=== PATIENT | female | born 1950 | race Caucasian/White ===

== ENCOUNTER → 2016-03-11 | Outpatient (REF) | payer BC ==
[~2016-03-11] MED LIST: BETI1SOL OP; BIMA01SOL; BRIN1OPH; DRIS50002 PO; ENAL20TA PO; HYDR25TAB PO; HYDROXYUREA PO; MAGN400C2 PO; METF500T PO; VITA200016 PO; ZYLO300T4 PO; [UNRECOGNIZED DRUG - CODE] PO
[2016-03-11 12:24] LABS: BASO % 0.4 % (0.0-1.0); EOS # 0.2 K/mm3 (0.0-0.50); EOS % 3.3 % (0.0-3.0); LARGE UNSTAINED CELL # 0.2 K/mm3 (0.0-0.4); LARGE UNSTAINED CELL % 2.9 % (0.0-4.0); LYMPH # 2.8 K/mm3 (1.5-4.5); LYMPH % 38.5 % (24.0-44.0); MEAN CORPUSCULAR HGB CONC 35.4 g/dl (32.0-36.5); MEAN CORPUSCULAR VOLUME 107.2 fl (80.0-96.0); MONO # 0.3 K/mm3 (0.0-0.8); MONO % 4.3 % (0.0-5.0); NEUTROPHILS # 3.7 K/mm3 (1.8-7.7); NEUTROPHILS % 50.6 % (36.0-66.0); PLATELET COUNT, AUTOMATED 451 k/mm3 (150-450); RED CELL DISTRIBUTION WIDTH 13.1 % (11.5-14.5); WHITE BLOOD COUNT 7.3 K/mm3 (4.0-10.0)
[2016-03-11 12:31] LABS: ALBUMIN 3.8 GM/DL (3.2-5.2); ALBUMIN/GLOBULIN RATIO 1.12 (1.00-1.93); ALKALINE PHOSPHATASE 82 U/L (45-117); ALT/SGPT 46 U/L (12-78); ANION GAP 8 MEQ/L (8-16); AST/SGOT 26 U/L (15-37); BILIRUBIN,TOTAL 0.4 MG/DL (0.2-1.0); BLOOD UREA NITROGEN 19 MG/DL (7-18); CALCIUM LEVEL 9.4 MG/DL (8.8-10.2); CARBON DIOXIDE LEVEL 31 MEQ/L (21-32); CHLORIDE LEVEL 101 MEQ/L (98-107); CREATININE FOR GFR 0.62 MG/DL (0.55-1.02); GLOMERULAR FILTRATION RATE > 60.0 (>45); GLUCOSE, FASTING 119 MG/DL (80-110); POTASSIUM SERUM 4.1 MEQ/L (3.5-5.1); SODIUM LEVEL 140 MEQ/L (136-145); TOTAL PROTEIN 7.2 GM/DL (6.4-8.2)
== END ==
LOC: M LABDRAW1 11:28
DX: D47.1 Chronic myeloproliferative disease (principal)

== ENCOUNTER → 2016-04-08 | Outpatient (REF) | payer BC ==
[2016-04-08 12:40] LABS: BASO % 0.4 % (0.0-1.0); EOS # 0.2 K/mm3 (0.0-0.50); EOS % 2.2 % (0.0-3.0); LARGE UNSTAINED CELL # 0.2 K/mm3 (0.0-0.4); LARGE UNSTAINED CELL % 2.8 % (0.0-4.0); LYMPH # 2.8 K/mm3 (1.5-4.5); MEAN CORPUSCULAR HEMOGLOBIN 37.1 pg (27.0-33.0); MEAN CORPUSCULAR HGB CONC 33.6 g/dl (32.0-36.5); MEAN CORPUSCULAR VOLUME 110.5 fl (80.0-96.0); MONO # 0.3 K/mm3 (0.0-0.8); MONO % 4.3 % (0.0-5.0); NEUTROPHILS # 4.2 K/mm3 (1.8-7.7); NEUTROPHILS % 54.2 % (36.0-66.0); PLATELET COUNT, AUTOMATED 390 k/mm3 (150-450); RED CELL DISTRIBUTION WIDTH 12.9 % (11.5-14.5); WHITE BLOOD COUNT 7.7 K/mm3 (4.0-10.0)
[2016-04-08 12:50] LABS: ALBUMIN 3.9 GM/DL (3.2-5.2); ALBUMIN/GLOBULIN RATIO 1.26 (1.00-1.93); ALKALINE PHOSPHATASE 92 U/L (45-117); ALT/SGPT 32 U/L (12-78); ANION GAP 7 MEQ/L (8-16); AST/SGOT 21 U/L (15-37); BILIRUBIN,TOTAL 0.5 MG/DL (0.2-1.0); BLOOD UREA NITROGEN 18 MG/DL (7-18); CALCIUM LEVEL 9.8 MG/DL (8.8-10.2); CARBON DIOXIDE LEVEL 30 MEQ/L (21-32); CHLORIDE LEVEL 103 MEQ/L (98-107); CREATININE FOR GFR 0.56 MG/DL (0.55-1.02); GLOMERULAR FILTRATION RATE > 60.0 (>45); GLUCOSE, FASTING 129 MG/DL (80-110); POTASSIUM SERUM 4.3 MEQ/L (3.5-5.1); SODIUM LEVEL 140 MEQ/L (136-145)
== END ==
LOC: M LABDRWAD 12:17
PROVIDERS: ATTEND Nurse Practitioner Family
DX: D47.1 Chronic myeloproliferative disease (principal)

== ENCOUNTER → 2016-05-05 | Outpatient (REF) | payer BC ==
[~2016-05-05] MED LIST changes: +ALLO100T PO; -BETI1SOL OP; +BETI1SOL OU; -BIMA01SOL; +BIMA01SOL OU; -BRIN1OPH; +BRIN1OPH OS; +VITA500C10 PO
[2016-05-05 10:40] LABS: BASO % 0.3 % (0.0-1.0); EOS # 0.1 K/mm3 (0.0-0.50); EOS % 1.5 % (0.0-3.0); LARGE UNSTAINED CELL # 0.2 K/mm3 (0.0-0.4); LARGE UNSTAINED CELL % 2.8 % (0.0-4.0); LYMPH # 2.4 K/mm3 (1.5-4.5); LYMPH % 33.2 % (24.0-44.0); MEAN CORPUSCULAR HEMOGLOBIN 36.2 pg (27.0-33.0); MEAN CORPUSCULAR HGB CONC 33.6 g/dl (32.0-36.5); MEAN CORPUSCULAR VOLUME 107.9 fl (80.0-96.0); MONO # 0.3 K/mm3 (0.0-0.8); MONO % 3.5 % (0.0-5.0); NEUTROPHILS # 4.1 K/mm3 (1.8-7.7); NEUTROPHILS % 58.5 % (36.0-66.0); PLATELET COUNT, AUTOMATED 353 k/mm3 (150-450); RED CELL DISTRIBUTION WIDTH 12.8 % (11.5-14.5); WHITE BLOOD COUNT 7.1 K/mm3 (4.0-10.0)
[2016-05-05 10:46] LABS: ALBUMIN 3.8 GM/DL (3.2-5.2); ALBUMIN/GLOBULIN RATIO 1.12 (1.00-1.93); ALKALINE PHOSPHATASE 98 U/L (45-117); ALT/SGPT 28 U/L (12-78); ANION GAP 10 MEQ/L (8-16); AST/SGOT 17 U/L (15-37); BILIRUBIN,TOTAL 0.4 MG/DL (0.2-1.0); BLOOD UREA NITROGEN 17 MG/DL (7-18); CALCIUM LEVEL 9.3 MG/DL (8.8-10.2); CARBON DIOXIDE LEVEL 30 MEQ/L (21-32); CHLORIDE LEVEL 102 MEQ/L (98-107); CREATININE FOR GFR 0.53 MG/DL (0.55-1.02); GLOMERULAR FILTRATION RATE > 60.0 (>45); GLUCOSE, FASTING 130 MG/DL (80-110); POTASSIUM SERUM 4.1 MEQ/L (3.5-5.1); SODIUM LEVEL 142 MEQ/L (136-145); TOTAL PROTEIN 7.2 GM/DL (6.4-8.2)
== END ==
LOC: M LAB 10:17 → M LAB REF 10:17
PROVIDERS: ATTEND Nurse Practitioner Family
DX: D47.1 Chronic myeloproliferative disease (principal)

== ENCOUNTER → 2016-05-05 | Outpatient (CLI) | payer BC ==
[2016-05-05 10:28] LABS: MEAN CORPUSCULAR HEMOGLOBIN 37.2 pg (27.0-33.0); MEAN CORPUSCULAR HGB CONC 34.6 g/dl (32.0-36.5); MEAN CORPUSCULAR VOLUME 107.3 fl (80.0-96.0); WHITE BLOOD COUNT 7.3 K/mm3 (4.0-10.0)
--- NOTE | 2016-05-05 10:29 | REP ---
Chest two views HISTORY: Preop Comparison: 06/01/2015 The lungs are clear. The heart is normal in size. The pulmonary vasculature is normal in appearance. The bony structure is intact. IMPRESSION: No acute disease. Signed by Johann Whitehead MD 05/05/2016 10:20 A
[2016-05-05 10:30] LABS: INR 0.97
[2016-05-05 10:45] LABS: ALBUMIN 3.8 GM/DL (3.2-5.2); ALBUMIN/GLOBULIN RATIO 1.12 (1.00-1.93); ALKALINE PHOSPHATASE 99 U/L (45-117); ALT/SGPT 27 U/L (12-78); ANION GAP 9 MEQ/L (8-16); AST/SGOT 17 U/L (15-37); BILIRUBIN,TOTAL 0.4 MG/DL (0.2-1.0); BLOOD UREA NITROGEN 18 MG/DL (7-18); CALCIUM LEVEL 9.3 MG/DL (8.8-10.2); CARBON DIOXIDE LEVEL 30 MEQ/L (21-32); CHLORIDE LEVEL 102 MEQ/L (98-107); CREATININE FOR GFR 0.54 MG/DL (0.55-1.02); GLOMERULAR FILTRATION RATE > 60.0 (>45); GLUCOSE, FASTING 130 MG/DL (80-110); POTASSIUM SERUM 4.1 MEQ/L (3.5-5.1); SODIUM LEVEL 141 MEQ/L (136-145); TOTAL PROTEIN 7.2 GM/DL (6.4-8.2)
--- NOTE | 2016-05-05 12:45 | ECGEPIP ---
Stationary ECG Study [facility] Test Date: 2016-05-05 Pat Name: BRET MICHELLE Department: Room: - Gender: F Acute Care Nurse: ITZ : 1950 Requested By: Cuate Adler Order Number: [id number] Reading MD: Gilma Gonzales Measurements Intervals [place] Rate: 66 P: 56 [place]: 151 QRS: 48 QRSD: 98 T: 102 QT: 394 QTc: 416 Interpretive Statements SINUS RHYTHM STTABN MORE APPARENT C/W 06/02/15 Electronically Signed On 05-05-2016 12:45:22 EST by Gilma Gonzales
== END ==
LOC: M ADMPAT 08:43
PROVIDERS: ATTEND Orthopaedic Surgery
DX: Z01.818 Encounter for other preprocedural examination (principal)

== ENCOUNTER 2016-05-18 05:43 | Inpatient (IN) | payer BC ==
[2016-05-05 10:03] VITALS: BP 140/78
--- NOTE | 2016-05-17 10:03 | CR ---
PREOPERATIVE EVALUATION AND CONSULTATION DATE OF CONSULTATION: 05/09/2016 REQUESTING CONSULTATION: Is Dr. Cuate Adler, orthopedics. CONSULTING PHYSICIAN: Dr. Francois Snowden of [facility]. PLANNED SURGERY: Is a left total knee replacement to be completed on 05/18/2016 at [facility]. CHIEF COMPLAINT: Preoperative evaluation. HISTORY OF PRESENT ILLNESS: A very pleasant 65-year-old patient who is well known to me presents today for a preoperative evaluation and consultation in the setting of multiple medical problems. The patient notes overall she is feeling well without any new symptoms or issues. She has no history of cardiac issues, significant chest pain, shortness of breath. She does have obstructive sleep apnea (ELENA) and has good compliance on continuous positive airway pressure (CPAP). She also has diabetes, which has been well controlled. Last hemoglobin A1c is 6.4. She does have a variant of polycythemia vera, but at this point has normal blood counts. She has had no issues with significant respiratory concerns or other medical issues of cardiac, pulmonary, or anesthesia issues. She does have a Ventolin metered-dose inhaler(MDI) and has wheeze with coughs in the past but has had no persistent asthma or other respiratory issues. Other medical issues, including osteoarthritis of the left knee, hyperlipidemia, vitamin D deficiency, hypertension, gout, glaucoma, peripheral neuropathy, and restless legs. Each of these appear to be stable on present medication. PAST MEDICAL HISTORY: 1. Type 2 diabetes, controlled. 2. Vitamin D deficiency. 3. Myelodysplastic syndrome seen at [facility] and diagnosed as polycythemia vera. 4. History of gout. 5. History of low back pain. 6. Hyperlipidemia. 7. Hypertension. 8. Glaucoma. Follows with Dr. Harris, ophthalmology in [place]. 9. History of peripheral neuropathy. 10. History of spinal stenosis. 11. ELENA - 100% compliance with CPAP PAST SURGICAL HISTORY: 1. Abdominal hysterectomy in 1984. 2. Bilateral salpingo-oophorectomy (BSO) in 2003. 3. Cholecystectomy with Dr. Jiang in 2005. 4. Left foot surgery with Dr. Forbes, including a plate and screw placement. 5. Orthoscopic evaluation by Dr. Adler of her left knee. 6. Right carpal tunnel release in 2003. ALLERGIES: ACTOS and NORVASC both cause lower extremity swelling. COZAAR caused increased liver function testing. THIMEROSAL caused itching of the eyes. ROPINIROLE caused diarrhea and disorientation. PRESENT MEDICATIONS: Include: - Zetia 10 mg by mouth daily - Vicodin one tablet every 6 hours as needed for pain - Combivent as well as Ventolin HFA as needed for wheezing with colds - vitamin D 2000 units daily - hydrochlorothiazide 25 mg - magnesium - vitamin D 2000 units daily - hydrochlorothiazide 25 mg daily - magnesium 400 mg daily - metformin ER 500 mg daily - Drisdol weekly - Vasotec 20 mg daily - Azopt 1% twice a day - aspirin 81 mg daily - Timolol one drop each eye twice a day - Lumigan 0.10% one drop in each eye at bedtime - hydroxyurea 500 mg tablets, two tablets daily - allopurinol 100 mg daily FAMILY HISTORY: Father of unknown causes. He had coronary disease with coronary artery bypass graft (CABG) in the past. Mother of natural causes at age 87. She had diabetes and osteoarthritis. SOCIAL HISTORY: The patient is to her , Francesco. They live in [place], and they have two adult children (Juwan and Valarie). 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 She has never smoked and does not use alcohol. REVIEW OF SYSTEMS: As per history of present illness (HPI). Otherwise, ten system review is completely negative. PHYSICAL EXAMINATION: VITAL SIGNS: Blood pressure 120/72, pulse of 80, height of 5 feet 5 inches, weight of 238 pounds. In general, in no acute distress. Nontoxic. Alert and oriented times three. She is smiling and interactive. HEENT: Notes pupils equal, round, and reactive to light and accommodation. Extraocular motions intact. No lesions of lid or conjunctivae. EARS, NOSE, AND THROAT (ENT): Oral cavity and oropharynx appear benign. NECK: Is supple. ABDOMEN: Soft, nontender, nondistended. EXTREMITIES: No clubbing, cyanosis, or edema. NEUROLOGICAL EXAMINATION: Is nonfocal. Equal movement of all limbs. PREOPERATIVE TESTING: Notes an electrocardiogram (EKG) with sinus rhythm. Urinalysis (UA) is negative. Urine culture shows no growth of single organism. CBC showed a hemoglobin of 13.6. MCV, however, significantly elevated. Platelets normal at 374, as is WBC at 7.3. ESR of 48. CMP is normal, as are platelet function testing. ASSESSMENT AND PLAN: 1. Preoperative evaluation and consultation. At this point in time, the patient appears to be optimized for surgical intervention. Again, the patient does have diabetes, ELENA as well as has a history of wheezing with colds. However, has not had any wheezing recently and has controlled diabetes with hemoglobin A1c last at 6.4. ELENA is well controlled on CPAP and she will bring it to the hospital. She is going to hold her metformin and Vasotec a day prior, as well as the day of surgery. She will hold her aspirin the week before and understands the need for close monitoring and anticoagulation for the planned procedure. 2. Left knee osteoarthritis. The patient looks forward to surgery and understands the plan for rehabilitation and improved function. 3. Hyperlipidemia. The patient is on Zetia due to statin intolerance and has generally done well and will continue present medication. 4. Myeloproliferative disease/polycythemia vera. Appears to be stable at this point in time, although increased MCV. Other lines are all in the normal range and will continue to monitor and followup at [facility]. 5. Type 2 diabetes, controlled on last check. Will continue to monitor and be sure to hold metformin prior to surgical intervention. 6. Vitamin D deficiency. Doing well on supplementation. Will continue. 7. Hypertension. Has been well controlled on present regimen. There have been medications that have caused lower extremity edema. However, she is doing well on her present regimen and will continue. 8. Gout. The patient does well with allopurinol and no recent episodes. 9. Glaucoma. Is following with her clinical cytogeneticist with good results on present drops. 10. Idiopathic neuropathy. Appears to be stable. Will monitor. 11. History of wheezing with colds. She will be given nebulizers if indeed there is any induction of wheezing. However, her lungs are completely clear today. 12. ELENA. Doing well on CPAP with 100% compliance. 13. Ongoing care. Will see her again as scheduled with laboratories. If she has new problems or issues sooner than her surgery, she is going to let me know. TOMY
[~2016-05-18] VITALS: Ht 165.1 cm; Wt 106.6 kg
[2016-05-18] VITALS (8 sets, daily range): BP systolic 134–163; BP diastolic 64–75; O2SAT 99
[2016-05-18] MEDS ORDERED: LR 1,000 ML IV SCH ×3 (06:00→10:30)
[2016-05-18] MEDS ORDERED: LIDOCAINE 2% INJ 100 MG/5 ML SDV (FOR ANES.) As Ordered ONE (06:24)
[2016-05-18] MEDS ORDERED: PROPOFOL 200 MG/20 ML VIAL As Ordered ONE ×2 (06:24→08:22)
[2016-05-18] MEDS ORDERED: dexameTHASONE 4 MG/ML 1ML VIAL (J1100) As Ordered ONE (06:24)
[2016-05-18] MEDS ORDERED: ONDANSETRON 4MG/2ML VIAL (J2405) As Ordered ONE (06:24)
[2016-05-18] MEDS ORDERED: MIDAZOLAM INJ 2 MG/2 ML VIAL (J2250) As Ordered ONE ×2 (06:47→08:43)
[2016-05-18] MEDS ORDERED: fentaNYL 100 MCG/2 ML INJECTION (J3010) As Ordered ONE ×2 (06:47→07:11)
[2016-05-18] MEDS ORDERED: TRANEXAMIC ACID 100 MG/ML 10ML VIAL As Ordered ONE (07:04)
[2016-05-18] MEDS ORDERED: EPINEPHrine INJ 1 MG/ML 1ML VIAL/AMP As Ordered ONE (07:12)
[2016-05-18] MEDS ORDERED: ceFAZolin 1GM INJ (J0690) As Ordered ONE (07:12)
[2016-05-18] MEDS ORDERED: BUPIVACAINE HCL 0.25% 30 ML VIAL As Ordered ONE (07:12)
[2016-05-18] MEDS ORDERED: fentaNYL 100 MCG/2 ML INJECTION (J3010) IV ONE (07:30)
[2016-05-18] MEDS ORDERED: MIDAZOLAM INJ 2 MG/2 ML VIAL (J2250) IV ONE (07:30)
--- NOTE | 2016-05-18 08:06 | HPE ---
DATE OF ADMISSION: 05/18/2016 Patient is seen and examined. She wished to have the left total knee arthroplasty. She understands the nature of this, the risks of bleeding, infection, damage to nerves, vessels, persistent pain, wear, loosening, blood clots, medical problems, among others. She is still having a lot of pain with her knee, especially when she tries to flex the knee and wishes to proceed. I noticed that in the H P that Deysi dictated, I think he accidentally indicated that Dr. Elliott Rodriguez was the attending surgeon but it is actually Dr. Cuate Adler.
[2016-05-18] MEDS ORDERED: ROPIvacaine 0.5% 30 ML INJECTION (J2795) ONE (08:20)
[2016-05-18] MEDS ORDERED: dexameTHASONE 10 MG/1 ML VIAL PRES.FREE (J1100) ONE (08:20)
[2016-05-18] MEDS ORDERED: LIDOCAINE 1% MDV 20ML VIAL ONE (08:20)
[2016-05-18] MEDS ORDERED: MORPHINE PCA 1MG/ML 100ML CADD As Ordered ONE (09:46)
[2016-05-18] MEDS ORDERED: HYDROmorphone HCL 1 MG/ML SYRINGE (J1170) IV PRN (10:30)
[2016-05-18] MEDS ORDERED: fentaNYL 100 MCG/2 ML INJECTION (J3010) IV PRN (10:30)
[2016-05-18] MEDS ORDERED: FLEET ENEMA PR PRN (10:30)
[2016-05-18] MEDS ORDERED: ACETAMINOPHEN TAB 650MG DOSE (2X325MG) PO PRN (10:30)
[2016-05-18] MEDS ORDERED: PERCOCET 5MG/325MG TAB PO PRN (10:30)
[2016-05-18] MEDS ORDERED: ONDANSETRON 4MG/2ML VIAL (J2405) IV PRN ×3 (10:30→10:45)
[2016-05-18] MEDS ORDERED: GLUCAGON FOR INJ 1 MG VIAL (J1610) SC PRN (10:45)
[2016-05-18] MEDS ORDERED: NALBUPHINE HCL 10 MG/ML AMP (J2300) IV PRN (10:45)
[2016-05-18] MEDS ORDERED: EPIDURAL/PCA KEYS XX PRN (10:45)
[2016-05-18] MEDS ORDERED: MORPHINE PCA 1MG/ML 100ML CADD IV PRN (10:45)
[2016-05-18] MEDS ORDERED: GLUCOSE 4 GM CHEW TABLET PO PRN (10:45)
[2016-05-18] MEDS ORDERED: DEXTROSE 50% 50 ML SYRINGE IV PRN (10:45)
[2016-05-18] MEDS ORDERED: PATIENT IS CURRENTLY ON AN ON-Q PAIN BUSTER PAIN RELIEF SYSTEM XX SCH (10:45)
[2016-05-18] MEDS ORDERED: NALOXONE INJ 0.4 MG/1 ML VIAL (J2310) IV PRN (10:45)
[2016-05-18] MEDS ORDERED: diphenhydrAMINE INJ 50MG/ML VIAL (J1200) IV PRN (10:45)
[2016-05-18] MEDS: VITAMIN D 1,000 INTERNATIONAL UNITS TABLET PO SCH (12:22)
[2016-05-18] MEDS: ASCORBIC ACID 500 MG TAB PO SCH (12:22)
[2016-05-18] MEDS: MAGNESIUM OXIDE 400 MG TAB (MAG-OX) PO SCH (12:22)
[2016-05-18] MEDS: ALLOPURINOL 100 MG TAB PO SCH (12:22)
[2016-05-18] MEDS: HumaLOG INSULIN (NovoLOG) PER UNIT SC SCH ×3 (12:23→21:00)
[2016-05-18] MEDS: LR 1,000 ML IV SCH ×2 (12:23→23:50)
--- NOTE | 2016-05-18 16:43 | RO ---
DATE OF PROCEDURE: 05/18/2016 PREPROCEDURE DIAGNOSIS: Left knee osteoarthritis. POSTPROCEDURE DIAGNOSIS: Left knee osteoarthritis. OPERATIVE PROCEDURE: Left total knee arthroplasty using a PFC rotating platform cruciate retaining size 3 femur, size 3 tibia, 10 polyethylene and a 35 patellar button. SURGEON: Cuate Adler MD EDGING MACHINE FEEDER: ANESTHESIA: Spinal. ESTIMATED BLOOD LOSS: Less than 50 mL. COMPLICATIONS: None. INDICATIONS: This is a 65-year-old woman who has some persistent left knee pain that limits her ability to get around; it gives her fairly continuous pain and she has been refractory to conservative management. She wished to go ahead with the left total knee arthroplasty. She understood the nature of this; the risks of bleeding, infection, damage to nerves, vessels, persistent pain, wear, loosening, blood clots, medical problems, among others. She did have a little bit of atypical preoperative pain with pain with flexion of her knee and she understood that this was not a certainty in alleviating that pain. Again, she did have an extensive workup. DESCRIPTION OF PROCEDURE: The patient taken to the operating room and placed in the supine position after spinal anesthesia was induced. Left lower extremity was prepped and draped in the usual sterile fashion. Time-out was performed. I then created a longitudinal incision over the anterior aspect of the knee. Sharp dissection was carried down through the subcutaneous tissue until the fascia was encountered. I performed a medial parapatellar arthrotomy per routine, everted the patella and then flexed the knee up, removed any osteophytes, used a canal initiating reamer to create a hole in the end of the femur. I then used the intramedullary guide set at 5 valgus and 10 cut, which was pinned in place by the certified anesthesiologist assistant and the distal femoral cut was made by the certified anesthesiologist assistant in the usual fashion protecting soft tissues. I sized the femur to be a 3, pinned this in place with the external rotation guide distally and then put the four-in-one cutting block on the end and pinned this in place. The remaining four cuts were made without difficulty protecting soft tissues. I then prepared the tibia. I did remove the ACL and put a posterior retractor in and then put the tibial alignment guide and the appropriate amount of valgus and posterior slope, pinned this and this in place at 4 off the low side and made the proximal tibia cut removing this bone. Flux Mixer was used to remove soft tissue from either side of the knee and osteophytes from the posterior aspect of the femur and there was actually a reasonable amount of bone on the posterior aspect of the femur, which I was hoping may have contributed to her symptoms posteriorly. Soft tissue removed from both sides of the knee. Controlled hemostasis again with a cautery and then prepared the tibial surface. The size 3 tibial tray fit very nicely. This was pinned in place. I then broached and drilled and placed the trial components. Prior to this I had used the spacer blocks and the size 10 seemed to be at the appropriate stability and alignment and flexion and extension. Overall very pleased with the stability and the alignment. I had performed a medial release at the beginning and I made sure that this was appropriate at this step. Once the trial components were placed, I then put the knee through a range of motion. Again, was very pleased with the range of motion. There was no spit out of the plastic when I flexed the knee back. It did not seem to be tight posteriorly. I had excellent extension and excellent flexion. Passive flexion was to at least a 110 to 115 degrees with no obvious restriction or impeding factors. The stability was excellent. I then freehand cut the patella, removed about 7 mm of bone and sized to be a 35; trialed the polyethylene button, put the knee through a range of motion. Drilled the holes in the end of the femur. Again, was very pleased with the stability and alignment of the knee and the fit of the components. I removed the trial components, irrigated copiously. The certified anesthesiologist assistant prepared the bone cement in the modern technique. I dried the bony surfaces, cemented on the tibial tray; impacted in place, placed the polyethylene. We had removed excess bone cement throughout. Cement on the femoral component; removed excess bone cement, put the knee out in extension and cemented on the patella and then carefully removed any excess bone cement from throughout the knee. I then irrigated copiously again all the soft tissues; placed the TXA solution and then I closed the deep layer with some interrupted #1 Vicryl sutures, spaced out and once the cement had hardened I removed the patellar clamp and closed the deep layer with a Stratafix suture, running in both directions, starting at the midpoint and working both directions. The closure was watertight. I again put the knee through a range of motion. There was excellent motion. No clicking or catching, excellent alignment. Irrigated, closed the subcutaneous with #2-0 Vicryl, skin with danyel. We inserted a PainBuster catheter through the superolateral aspect of the knee and attached it to the side of the leg in the usual fashion. Sterile dressing was applied. Tourniquet was deflated and she was taken to recovery room in stable condition. There were no known complications. PLAN: Routine postop. The certified anesthesiologist assistant was instrumental in holding retractors and mixing the bone cement and assisting in wound closure.
[2016-05-18] MEDS ORDERED: WARFARIN SOD 5 MG TAB PO SCH (17:00)
[2016-05-18] MEDS: HYDROXYUREA 500 MG CAP PO SCH (17:57)
[2016-05-18] MEDS: LATANOPROST 0.005% OPHTH SOLN 2.5 ML OU SCH (21:48)
[2016-05-18] MEDS: BRINZOLAMIDE 1 % OPHTH SUSP (AZOPT) 10ML OS SCH (21:48)
[2016-05-19 06:00] VITALS: BP 147/69
[2016-05-19] MEDS ORDERED: PERCOCET 5MG/325MG TAB PO PRN (06:30)
[2016-05-19] MEDS ORDERED: ONDANSETRON 4 MG TAB (S0181) PO PRN (06:30)
[2016-05-19 08:07] LABS: MEAN CORPUSCULAR HEMOGLOBIN 38.8 pg (27.0-33.0); MEAN CORPUSCULAR HGB CONC 35.4 g/dl (32.0-36.5); MEAN CORPUSCULAR VOLUME 109.6 fl (80.0-96.0); RED CELL DISTRIBUTION WIDTH 13.5 % (11.5-14.5); WHITE BLOOD COUNT 13.5 K/mm3 (4.0-10.0)
[2016-05-19 08:09] LABS: INR 1.03
[2016-05-19 08:15] LABS: ANION GAP 7 MEQ/L (8-16); BLOOD UREA NITROGEN 19 MG/DL (7-18); CALCIUM LEVEL 8.7 MG/DL (8.8-10.2); CARBON DIOXIDE LEVEL 29 MEQ/L (21-32); CHLORIDE LEVEL 102 MEQ/L (98-107); CREATININE FOR GFR 0.64 MG/DL (0.55-1.02); GLOMERULAR FILTRATION RATE > 60.0 (>45); GLUCOSE, FASTING 176 MG/DL (80-110); SODIUM LEVEL 138 MEQ/L (136-145)
[2016-05-19] MEDS: ALLOPURINOL 100 MG TAB PO SCH (08:31)
[2016-05-19] MEDS: SENOKOT S TAB PO SCH ×2 (08:31→21:37)
[2016-05-19] MEDS: VITAMIN D 1,000 INTERNATIONAL UNITS TABLET PO SCH (08:31)
[2016-05-19] MEDS: ASCORBIC ACID 500 MG TAB PO SCH (08:31)
[2016-05-19] MEDS: MIRALAX *UNIT DOSE* 17GM PACKET PO SCH (08:31)
[2016-05-19] MEDS: HumaLOG INSULIN (NovoLOG) PER UNIT SC SCH ×4 (08:31→21:00)
[2016-05-19] MEDS: MOM 30ML SUSPENSION UDC PO SCH (08:32)
[2016-05-19] MEDS: MAGNESIUM OXIDE 400 MG TAB (MAG-OX) PO SCH (08:32)
[2016-05-19] MEDS: BRINZOLAMIDE 1 % OPHTH SUSP (AZOPT) 10ML OS SCH ×2 (08:32→21:37)
[2016-05-19] MEDS: TIMOLOL MALEATE 0.25% OPHTH SOLN 5 ML OU SCH (08:32)
[2016-05-19] MEDS ORDERED: NON-FORMULARY 1 EA EA PO SCH (09:00)
--- NOTE | 2016-05-19 09:19 | REP ---
Clinical: Status post knee replacement. Technique AP and cross-table lateral views. Findings: The patient is status post left knee replacement with normal positioning and appearance to the femoral and tibial components. Overlying postsurgical changes appreciated. Impression: Status post left knee replacement. Signed by Travis Russell MD 05/19/2016 09:11 A
[2016-05-19 10:00] VITALS: BP 128/62
--- NOTE | 2016-05-19 12:35 | IPNPDOC ---
Subjective Date Seen The patient was seen on 05/18/16. Subjective Chief Complaint/HPI The patient is a 65-year-old female admitted with a reason for visit of Arthritis Left Knee. Events since last encounter partient status post elective left total knee arthroplasty , no complaints at present , no nausea or vomiting , no chest pain or shortness of breath , no cough or abdominal pain. Objective Physical Examination General Exam: Positive: Alert, Cooperative, No Acute Distress Eye Exam: Positive: Conjunctiva & lids normal, EOMI, PERRLA, Negative: Sclera icteric ENT Exam: Positive: Atraumatic, Mucous membr. moist/pink, Pharynx Normal Neck Exam: Positive: Supple, Negative: JVD, thyromegaly Chest Exam: Positive: Clear to auscultation, Normal air movement Heart Exam: Positive: Normal S1, Normal S2, Rate Normal, Regular Rhythm, Negative: Murmurs, Rubs Abdomen Exam: Positive: Normal bowel sounds, Soft, Negative: Hepatospenomegaly, Tenderness Extremity Exam: Positive: Normal pulses, Negative: Clubbing, Cyanosis, Edema Skin Exam: Positive: Nl turgor and temperature, Negative: Breakdown, Rash Assessment /Plan Problems (1) Status post total knee replacement, left Status: Acute Problem Text: s/p elective surgery for advanced osteoarthritis pain control and dvt prophylaxis as per ortho protocol (2) ELENA (obstructive sleep apnea) Status: Chronic Problem Text: continue home CPAP (3) Polycythemia vera Status: Chronic Problem Text: continue hydoxyurea (4) Glaucoma Status: Chronic (5) Peripheral neuropathy Status: Chronic (6) Gout Status: Chronic (7) Hyperlipidemia Status: Chronic (8) Hypertension Status: Chronic Problem Text: continue home medications with hold parameters. (9) Diabetes Status: Chronic Problem Text: will hold metformin and continue sliding scale insulin Plan/VTE VTE Prophylaxis Ordered?: Yes VS, I&O, 24H, Fishbone Vital Signs/I&O Vital Signs Date Time Temp Pulse Resp B/P Pulse Ox O2 Delivery O2 Flow Rate FiO2 05/18/16 10:20 61 18 128/60 100 Nasal Cannula 2 05/18/16 10:00 97.2 Laboratory Data 24H LABS Laboratory Tests 2 05/18/16 06:16: Bedside Glucose (Misc Panel) 139H CBC/BMP Laboratory Tests 05/18/16 06:02 ALEXIS EASTMAN MD May 18, 2016 10:43
--- NOTE | 2016-05-19 12:37 | IPNPDOC ---
Subjective Date Seen The patient was seen on 05/19/16. Subjective Chief Complaint/HPI The patient is a 65-year-old female admitted with a reason for visit of Arthritis Left Knee. Events since last encounter could not sleep last night as the monitor was continuously beeping otherwise feeling well , no nausea or vomiting, no chest pain or shortness of breath Objective Physical Examination General Exam: Positive: Alert, Cooperative, No Acute Distress Eye Exam: Positive: Conjunctiva & lids normal, EOMI, PERRLA, Negative: Sclera icteric ENT Exam: Positive: Atraumatic, Mucous membr. moist/pink, Pharynx Normal Neck Exam: Positive: Supple, Negative: JVD, thyromegaly Chest Exam: Positive: Clear to auscultation, Normal air movement Heart Exam: Positive: Normal S1, Normal S2, Rate Normal, Regular Rhythm, Negative: Murmurs, Rubs Abdomen Exam: Positive: Normal bowel sounds, Soft, Negative: Hepatospenomegaly, Tenderness Extremity Exam: Positive: Normal pulses, Negative: Clubbing, Cyanosis, Edema Skin Exam: Positive: Nl turgor and temperature, Negative: Breakdown, Rash Assessment /Plan Problems (1) Status post total knee replacement, left Status: Acute Problem Text: s/p elective surgery for advanced osteoarthritis pain control and dvt prophylaxis as per ortho protocol (2) ELENA (obstructive sleep apnea) Status: Chronic Problem Text: continue home CPAP (3) Polycythemia vera Status: Chronic Problem Text: continue hydoxyurea (4) Glaucoma Status: Chronic (5) Peripheral neuropathy Status: Chronic (6) Gout Status: Chronic (7) Hyperlipidemia Status: Chronic (8) Hypertension Status: Chronic Problem Text: continue home medications with hold parameters. (9) Diabetes Status: Chronic Problem Text: will hold metformin and continue sliding scale insulin Plan/VTE VTE Prophylaxis Ordered?: Yes VS, I&O, 24H, Fishbone Vital Signs/I&O Vital Signs Date Time Temp Pulse Resp B/P Pulse Ox O2 Delivery O2 Flow Rate FiO2 05/19/16 12:27 16 05/19/16 06:00 98.6 69 147/69 96 NIPPV (BIPAP/CPAP) 05/18/16 14:30 2.0 I&O- Last 24 Hours up to 6 AM 05/19/16 05:59 Intake Total 2270 ml Output Total 1350 ml Balance 920 ml Laboratory Data 24H LABS Laboratory Tests 2 05/18/16 17:08: Bedside Glucose (Misc Panel) 221H 05/18/16 21:18: Bedside Glucose (Misc Panel) 211H 05/19/16 07:32: Anion Gap 7L, Blood Urea Nitrogen 19H, Creatinine 0.64, Sodium Level 138, Potassium Level 4.0, Chloride Level 102, Carbon Dioxide Level 29, Calcium Level 8.7L, Glomerular Filtration Rate > 60.0, Prothromb Time International Ratio 1.03 , Prothrombin Time 13.6 05/19/16 11:53: Bedside Glucose (Misc Panel) 149H CBC/BMP Laboratory Tests 05/19/16 07:32 Calcium Level 8.7 L, Red Blood Count 3.14 L, Mean Corpuscular Volume 109.6 H, Mean Corpuscular Hemoglobin 38.8 H, Mean Corpuscular Hemoglobin Concent 35.4, Red Cell Distribution Width 13.5 ALEXIS EASTMAN MD May 19, 2016 12:37
[2016-05-19 14:00] VITALS: BP 133/60
[2016-05-19] MEDS: PERCOCET 5MG/325MG TAB PO PRN ×2 (16:54→21:37)
[2016-05-19] MEDS ORDERED: WARFARIN SOD 5 MG TAB PO ONE ×2 (17:00)
[2016-05-19] MEDS: HYDROXYUREA 500 MG CAP PO SCH (17:33)
[2016-05-19] MEDS: LATANOPROST 0.005% OPHTH SOLN 2.5 ML OU SCH (21:37)
[2016-05-19 22:00] VITALS: BP 142/63
[2016-05-20] MEDS: PERCOCET 5MG/325MG TAB PO PRN ×4 (01:54→14:44)
[2016-05-20 06:00] VITALS: BP 159/67
[2016-05-20 07:06] LABS: MEAN CORPUSCULAR HEMOGLOBIN 38.5 pg (27.0-33.0); MEAN CORPUSCULAR HGB CONC 34.1 g/dl (32.0-36.5); MEAN CORPUSCULAR VOLUME 112.7 fl (80.0-96.0); RED CELL DISTRIBUTION WIDTH 13.6 % (11.5-14.5); WHITE BLOOD COUNT 10.9 K/mm3 (4.0-10.0)
[2016-05-20 07:07] LABS: INR 1.16
[2016-05-20] MEDS ORDERED: ENOXAPARIN 40 MG/0.4 ML SYRINGE (J1650) SC ONE (07:15)
[2016-05-20 07:16] LABS: ANION GAP 7 MEQ/L (8-16); BLOOD UREA NITROGEN 17 MG/DL (7-18); CALCIUM LEVEL 8.2 MG/DL (8.8-10.2); CARBON DIOXIDE LEVEL 30 MEQ/L (21-32); CHLORIDE LEVEL 105 MEQ/L (98-107); CREATININE FOR GFR 0.56 MG/DL (0.55-1.02); GLOMERULAR FILTRATION RATE > 60.0 (>45); GLUCOSE, FASTING 126 MG/DL (80-110); POTASSIUM SERUM 4.1 MEQ/L (3.5-5.1); SODIUM LEVEL 142 MEQ/L (136-145)
[2016-05-20] MEDS: MIRALAX *UNIT DOSE* 17GM PACKET PO SCH (08:12)
[2016-05-20] MEDS: MOM 30ML SUSPENSION UDC PO SCH (08:12)
[2016-05-20] MEDS: VITAMIN D 1,000 INTERNATIONAL UNITS TABLET PO SCH (08:13)
[2016-05-20] MEDS: MAGNESIUM OXIDE 400 MG TAB (MAG-OX) PO SCH (08:13)
[2016-05-20] MEDS: TIMOLOL MALEATE 0.25% OPHTH SOLN 5 ML OU SCH (08:13)
[2016-05-20] MEDS: ALLOPURINOL 100 MG TAB PO SCH (08:13)
[2016-05-20] MEDS: HumaLOG INSULIN (NovoLOG) PER UNIT SC SCH ×2 (08:13→13:09)
[2016-05-20] MEDS: ASCORBIC ACID 500 MG TAB PO SCH (08:13)
[2016-05-20] MEDS: SENOKOT S TAB PO SCH (08:13)
[2016-05-20] MEDS: BRINZOLAMIDE 1 % OPHTH SUSP (AZOPT) 10ML OS SCH (08:13)
[2016-05-20] MEDS ORDERED: PERC5TAB6 PO (08:34)
[2016-05-20] MEDS ORDERED: COUM2.5T11 PO (08:34)
[2016-05-20] MEDS ORDERED: MAGNESIUM CITRATE 300 ML BTL PO ONE (12:45)
[2016-05-20 14:42] VITALS: BP 168/72
[2016-05-21] MEDS ORDERED: ENALAPRIL MALEATE 10 MG TAB PO SCH (09:00)
--- NOTE | 2016-05-25 07:45 | DSES ---
DATE OF ADMISSION: 05/18/2016 DATE OF DISCHARGE: 05/20/2016 ATTENDING PHYSICIAN: Dr. Adler ADMISSION DIAGNOSIS: Osteoarthritis left knee. OTHER DIAGNOSES: Sleep apnea, ejl-livxhcz-mioqytess diabetes, vitamin D deficiency, polycythemia vera, elevated lipids, hypertension, glaucoma, spinal stenosis, peripheral neuropathy. DISCHARGE DIAGNOSIS: Osteoarthritis left knee status post left total knee arthroplasty. OPERATION PERFORMED: Left total knee arthroplasty. HISTORY: This pleasant 65-year-old female with progressively worsening left knee pain and stiffness. She failed to improve with conservative management. She was admitted for elective knee replacement on left side. HOSPITAL COURSE: The patient was admitted on day of surgery, underwent a left total knee arthroplasty, which was uneventful. She did well in the postoperative period and hospital course without complications. She was up with physical therapy per their protocol and pain was controlled. On day of discharge she was doing well weightbearing as tolerated on left lower extremity. She will move her left knee to prevent stiffness and she will use adjusted dose Coumadin and thromboembolic deterrent stockings (TEDS) for 30 days postoperative for deep vein thrombosis prophylaxis. She will resume her preoperative medications and diet. She was given instructions to include but not limited to wound monitoring and activity limitations. She will use oral pain medications for pain control. She will follow up in our office in 10-14 days for surgical followup. Please refer to the medical care record for further details.
== END 2016-05-20 16:44 | disposition home health service (06) | DRG 302 ==
LOC: M OR 05:43 → M MS5PR 10:35
PROVIDERS: ADMIT Orthopaedic Surgery; ATTEND Orthopaedic Surgery
PROC: 0SRD0J9 Replacement of Left Knee Joint with Synthetic Substitute, Cemented, Open Approach (ICD-10-PCS; principal; 2016-05-18 07:30)
DX: M17.12 Unilateral primary osteoarthritis, left knee (principal); D45 Polycythemia vera; E55.9 Vitamin D deficiency, unspecified; M10.9 Gout, unspecified; I10 Essential (primary) hypertension; E78.5 Hyperlipidemia, unspecified; G47.33 Obstructive sleep apnea (adult) (pediatric); H40.9 Unspecified glaucoma; Z79.899 Other long term (current) drug therapy; Z79.82 Long term (current) use of aspirin; E11.9 Type 2 diabetes mellitus without complications

== ENCOUNTER → 2016-05-24 | Outpatient (REF) | payer BC ==
[~2016-05-24] MED LIST changes: +COUM2.5T11 PO; +PERC5TAB6 PO
[2016-05-24 14:26] LABS: INR 1.55
== END ==
LOC: M LAB REF 13:43
PROVIDERS: ATTEND Orthopaedic Surgery
DX: Z79.01 Long term (current) use of anticoagulants (principal)

== ENCOUNTER → 2016-05-26 | Outpatient (REF) | payer BC | LOC: M LAB REF 12:49 | PROVIDERS: ATTEND Nurse Practitioner Family | DX: D47.1 Chronic myeloproliferative disease (principal) ==

== ENCOUNTER → 2016-05-26 | Outpatient (REF) | payer BC ==
[2016-05-26 13:36] LABS: INR 1.71
[2016-05-26 14:21] LABS: ALBUMIN 3.7 GM/DL (3.2-5.2); ALBUMIN/GLOBULIN RATIO 1.09 (1.00-1.93); ALKALINE PHOSPHATASE 90 U/L (45-117); ALT/SGPT 43 U/L (12-78); ANION GAP 7 MEQ/L (8-16); AST/SGOT 19 U/L (15-37); BILIRUBIN,TOTAL 0.4 MG/DL (0.2-1.0); BLOOD UREA NITROGEN 18 MG/DL (7-18); CALCIUM LEVEL 9.5 MG/DL (8.8-10.2); CARBON DIOXIDE LEVEL 30 MEQ/L (21-32); CHLORIDE LEVEL 98 MEQ/L (98-107); CREATININE FOR GFR 0.48 MG/DL (0.55-1.02); GLOMERULAR FILTRATION RATE > 60.0 (>45); GLUCOSE, FASTING 115 MG/DL (80-110); SODIUM LEVEL 135 MEQ/L (136-145); TOTAL PROTEIN 7.1 GM/DL (6.4-8.2)
[2016-05-26 14:35] LABS: BASO % 0.5 % (0.0-1.0); EOS # 0.2 K/mm3 (0.0-0.50); EOS % 2.5 % (0.0-3.0); LARGE UNSTAINED CELL # 0.1 K/mm3 (0.0-0.4); LARGE UNSTAINED CELL % 1.3 % (0.0-4.0); LYMPH # 2.7 K/mm3 (1.5-4.5); LYMPH % 27.5 % (24.0-44.0); MEAN CORPUSCULAR HEMOGLOBIN 38.7 pg (27.0-33.0); MEAN CORPUSCULAR HGB CONC 34.8 g/dl (32.0-36.5); MEAN CORPUSCULAR VOLUME 111.3 fl (80.0-96.0); MONO # 0.5 K/mm3 (0.0-0.8); MONO % 5.1 % (0.0-5.0); NEUTROPHILS # 6.1 K/mm3 (1.8-7.7); NEUTROPHILS % 63.1 % (36.0-66.0); PLATELET COUNT, AUTOMATED 337 k/mm3 (150-450); RED CELL DISTRIBUTION WIDTH 13.1 % (11.5-14.5); WHITE BLOOD COUNT 9.7 K/mm3 (4.0-10.0)
[2016-05-26 14:58] LABS: ADD MORPHOLOGY? YES
== END ==
LOC: M LAB REF 12:52
PROVIDERS: ATTEND Nurse Practitioner Family
DX: D47.1 Chronic myeloproliferative disease (principal); Z79.01 Long term (current) use of anticoagulants

== ENCOUNTER → 2016-05-30 | Outpatient (REF) | payer BC ==
[2016-05-30 12:40] LABS: INR 1.87
== END ==
LOC: M SHH 11:53
PROVIDERS: ATTEND Nurse Practitioner Family

== ENCOUNTER → 2016-06-02 | Outpatient (REF) | payer BC ==
[2016-06-02 12:28] LABS: INR 2.15
== END ==
LOC: M SHH 11:49
PROVIDERS: ATTEND Nurse Practitioner Family
DX: Z51.81 Encounter for therapeutic drug level monitoring (principal); Z79.01 Long term (current) use of anticoagulants

== ENCOUNTER → 2016-06-06 | Outpatient (REF) | payer BC ==
[2016-06-06 13:43] LABS: INR 2.08
== END ==
LOC: M SHH 12:42
PROVIDERS: ATTEND Nurse Practitioner Family
DX: Z51.81 Encounter for therapeutic drug level monitoring (principal); Z79.01 Long term (current) use of anticoagulants

== ENCOUNTER → 2016-06-09 | Outpatient (REF) | payer BC ==
[2016-06-09 13:17] LABS: INR 1.74
== END ==
LOC: M LAB REF 12:26
PROVIDERS: ATTEND Orthopaedic Surgery
DX: Z79.01 Long term (current) use of anticoagulants (principal)

== ENCOUNTER → 2016-06-13 | Outpatient (REF) | payer BC ==
[2016-06-13 12:22] LABS: INR 1.55
== END ==
LOC: M SHH 11:58
PROVIDERS: ATTEND Nurse Practitioner Family
DX: Z96.652 Presence of left artificial knee joint (principal); Z79.01 Long term (current) use of anticoagulants

== ENCOUNTER → 2016-06-16 | Outpatient (REF) | payer BC ==
[2016-06-16 11:57] LABS: INR 1.6
== END ==
LOC: M SHH 11:31
PROVIDERS: ATTEND Nurse Practitioner Family
DX: Z79.01 Long term (current) use of anticoagulants (principal)

== ENCOUNTER → 2016-08-31 | Outpatient (REF) | payer MEDICARE, BC ==
[~2016-08-31] MED LIST changes: -COUM2.5T11 PO; +COUM2.5T17 PO; -METF500T PO; +METF500T13 PO; +PERC5TAB12 PO; -PERC5TAB6 PO
[2016-08-31 16:02] LABS: ALBUMIN 3.7 GM/DL (3.2-5.2); ALBUMIN/GLOBULIN RATIO 1.12 (1.00-1.93); ALKALINE PHOSPHATASE 88 U/L (45-117); ALT/SGPT 26 U/L (12-78); ANION GAP 8 MEQ/L (8-16); AST/SGOT 16 U/L (15-37); BILIRUBIN,TOTAL 0.3 MG/DL (0.2-1.0); BLOOD UREA NITROGEN 20 MG/DL (7-18); CALCIUM LEVEL 9.5 MG/DL (8.8-10.2); CARBON DIOXIDE LEVEL 28 MEQ/L (21-32); CHLORIDE LEVEL 103 MEQ/L (98-107); CREATININE FOR GFR 0.55 MG/DL (0.55-1.02); GLOMERULAR FILTRATION RATE > 60.0 (>45); GLUCOSE, FASTING 137 MG/DL (80-110); SODIUM LEVEL 139 MEQ/L (136-145)
[2016-08-31 16:17] LABS: BASO # 0.1 K/mm3 (0.0-0.2); BASO % 0.8 % (0.0-1.0); EOS # 0.1 K/mm3 (0.0-0.50); EOS % 0.8 % (0.0-3.0); LARGE UNSTAINED CELL # 0.2 K/mm3 (0.0-0.4); LARGE UNSTAINED CELL % 1.8 % (0.0-4.0); LYMPH # 4.4 K/mm3 (1.5-4.5); LYMPH % 45.2 % (24.0-44.0); MEAN CORPUSCULAR HEMOGLOBIN 37.6 pg (27.0-33.0); MEAN CORPUSCULAR HGB CONC 34.4 g/dl (32.0-36.5); MEAN CORPUSCULAR VOLUME 109.3 fl (80.0-96.0); MONO # 0.3 K/mm3 (0.0-0.8); MONO % 3.1 % (0.0-5.0); NEUTROPHILS # 4.7 K/mm3 (1.8-7.7); NEUTROPHILS % 48.3 % (36.0-66.0); PLATELET COUNT, AUTOMATED 615 k/mm3 (150-450); RED CELL DISTRIBUTION WIDTH 11.9 % (11.5-14.5); WHITE BLOOD COUNT 9.7 K/mm3 (4.0-10.0)
== END ==
LOC: M LABDRAW1 15:32
PROVIDERS: ATTEND Physician Assistant
DX: D47.1 Chronic myeloproliferative disease (principal)

== ENCOUNTER → 2016-10-06 | Outpatient (REF) | payer MEDICARE, BC ==
[2016-10-06 12:43] LABS: BASO % 0.4 % (0.0-1.0); EOS # 0.1 K/mm3 (0.0-0.50); EOS % 0.9 % (0.0-3.0); LARGE UNSTAINED CELL # 0.2 K/mm3 (0.0-0.4); LARGE UNSTAINED CELL % 1.7 % (0.0-4.0); LYMPH # 4.2 K/mm3 (1.5-4.5); LYMPH % 39.1 % (24.0-44.0); MEAN CORPUSCULAR HGB CONC 33.2 g/dl (32.0-36.5); MEAN CORPUSCULAR VOLUME 108.5 fl (80.0-96.0); MONO # 0.4 K/mm3 (0.0-0.8); MONO % 3.7 % (0.0-5.0); NEUTROPHILS # 5.6 K/mm3 (1.8-7.7); NEUTROPHILS % 54.2 % (36.0-66.0); PLATELET COUNT, AUTOMATED 487 k/mm3 (150-450); RED CELL DISTRIBUTION WIDTH 12.8 % (11.5-14.5); WHITE BLOOD COUNT 10.3 K/mm3 (4.0-10.0)
[2016-10-06 13:05] LABS: ALBUMIN 3.5 GM/DL (3.2-5.2); ALBUMIN/GLOBULIN RATIO 1.03 (1.00-1.93); ALKALINE PHOSPHATASE 78 U/L (45-117); ALT/SGPT 30 U/L (12-78); ANION GAP 8 MEQ/L (8-16); AST/SGOT 15 U/L (15-37); BILIRUBIN,TOTAL 0.4 MG/DL (0.2-1.0); BLOOD UREA NITROGEN 20 MG/DL (7-18); CALCIUM LEVEL 9.2 MG/DL (8.8-10.2); CARBON DIOXIDE LEVEL 29 MEQ/L (21-32); CHLORIDE LEVEL 102 MEQ/L (98-107); CREATININE FOR GFR 0.61 MG/DL (0.55-1.02); GLOMERULAR FILTRATION RATE > 60.0 (>45); GLUCOSE, FASTING 121 MG/DL (80-110); POTASSIUM SERUM 4.4 MEQ/L (3.5-5.1); SODIUM LEVEL 139 MEQ/L (136-145); TOTAL PROTEIN 6.9 GM/DL (6.4-8.2)
== END ==
LOC: M LABDRAW1 11:54
PROVIDERS: ATTEND Physician Assistant
DX: D47.1 Chronic myeloproliferative disease (principal)

== ENCOUNTER → 2016-11-24 | Outpatient (CLI) | payer MEDICARE, BC ==
[2016-11-24 18:15] LABS: ALBUMIN/GLOBULIN RATIO 1.14 (1.00-1.93); ALKALINE PHOSPHATASE 86 U/L (45-117); ALT/SGPT 32 U/L (12-78); ANION GAP 8 MEQ/L (8-16); AST/SGOT 21 U/L (15-37); BILIRUBIN,TOTAL 0.5 MG/DL (0.2-1.0); BLOOD UREA NITROGEN 20 MG/DL (7-18); CALCIUM LEVEL 9.8 MG/DL (8.8-10.2); CARBON DIOXIDE LEVEL 31 MEQ/L (21-32); CHLORIDE LEVEL 100 MEQ/L (98-107); CREATININE FOR GFR 0.56 MG/DL (0.55-1.02); GLOMERULAR FILTRATION RATE > 60.0 (>45); GLUCOSE, FASTING 90 MG/DL (80-110); POTASSIUM SERUM 4.7 MEQ/L (3.5-5.1); SODIUM LEVEL 139 MEQ/L (136-145); TOTAL PROTEIN 7.5 GM/DL (6.4-8.2)
[2016-11-24 18:49] LABS: BASO % 0.3 % (0.0-1.0); EOS # 0.1 10^3/uL (0.0-0.50); EOS % 1.1 % (0.0-3.0); IMMATURE GRANULOCYTE % 0.7 % (0-0); LYMPH # 3.5 10^3/uL (1.5-4.5); LYMPH % 29.8 % (24.0-44.0); MEAN CORPUSCULAR HEMOGLOBIN 33.8 pg (27.0-33.0); MEAN CORPUSCULAR HGB CONC 32.5 g/dl (32.0-36.5); MEAN CORPUSCULAR VOLUME 104.1 fl (80.0-96.0); MONO # 0.8 10^3/uL (0.0-0.8); MONO % 6.7 % (0.0-5.0); NEUTROPHILS # 7.2 10^3/uL (1.8-7.7); NEUTROPHILS % 61.4 % (36.0-66.0); PLATELET COUNT, AUTOMATED 573 10^3/uL (150-450); RED CELL DISTRIBUTION WIDTH 12.3 % (11.5-14.5); WHITE BLOOD COUNT 11.7 10^3/uL (4.0-10.0)
[2016-11-24 19:14] LABS: ADD MORPHOLOGY? NO
== END ==
LOC: M WUC 12:06
PROVIDERS: ATTEND Physician Assistant
DX: D47.1 Chronic myeloproliferative disease (principal)

== ENCOUNTER → 2016-12-19 | Outpatient (REF) | payer MEDICARE, BC ==
[2016-12-19 22:10] LABS: ALBUMIN 3.8 GM/DL (3.2-5.2); ALBUMIN/GLOBULIN RATIO 1.19 (1.00-1.93); ALKALINE PHOSPHATASE 73 U/L (45-117); ALT/SGPT 34 U/L (12-78); ANION GAP 7 MEQ/L (8-16); AST/SGOT 18 U/L (15-37); BILIRUBIN,TOTAL 0.3 MG/DL (0.2-1.0); BLOOD UREA NITROGEN 17 MG/DL (7-18); CALCIUM LEVEL 9.7 MG/DL (8.8-10.2); CARBON DIOXIDE LEVEL 33 MEQ/L (21-32); CHLORIDE LEVEL 102 MEQ/L (98-107); GLOMERULAR FILTRATION RATE > 60.0 (>45); GLUCOSE, FASTING 129 MG/DL (80-110); SODIUM LEVEL 142 MEQ/L (136-145)
[2016-12-19 22:20] LABS: MEAN CORPUSCULAR HEMOGLOBIN 33.3 pg (27.0-33.0); MEAN CORPUSCULAR HGB CONC 32.4 g/dl (32.0-36.5); MEAN CORPUSCULAR VOLUME 102.9 fl (80.0-96.0); PLATELET COUNT, AUTOMATED 568 10^3/uL (150-450); RED CELL DISTRIBUTION WIDTH 12.3 % (11.5-14.5)
[2016-12-19 22:25] LABS: WHITE BLOOD COUNT 12.6 10^3/uL (4.0-10.0)
[2016-12-19 22:26] LABS: ADD MANUAL DIFFER YES; DIFF SLIDE NUMBER 388; POSITIVE DIFF POS FLAG
[2016-12-19 23:17] LABS: EOSINOPHILS 1 % (0-5)
[2016-12-19 23:21] LABS: HYPOCHROMASIA 1+
== END ==
LOC: M LAB REF 09:46
PROVIDERS: ATTEND Physician Assistant
DX: D47.1 Chronic myeloproliferative disease (principal)

== ENCOUNTER → 2017-01-24 | Outpatient (CLI) | payer MEDICARE, BC ==
[2017-01-24 16:48] LABS: MEAN CORPUSCULAR HEMOGLOBIN 32.3 pg (27.0-33.0); MEAN CORPUSCULAR HGB CONC 32.5 g/dl (32.0-36.5); MEAN CORPUSCULAR VOLUME 99.5 fl (80.0-96.0); PLATELET COUNT, AUTOMATED 577 10^3/uL (150-450); RED CELL DISTRIBUTION WIDTH 12.6 % (11.5-14.5); WHITE BLOOD COUNT 12.1 10^3/uL (4.0-10.0)
[2017-01-24 16:54] LABS: POSITIVE DIFF POS FLAG
[2017-01-24 16:55] LABS: ADD MANUAL DIFFER YES; DIFF SLIDE NUMBER 289
[2017-01-24 17:02] LABS: ALBUMIN 3.9 GM/DL (3.2-5.2); ALBUMIN/GLOBULIN RATIO 1.08 (1.00-1.93); ALKALINE PHOSPHATASE 75 U/L (45-117); ALT/SGPT 43 U/L (12-78); ANION GAP 6 MEQ/L (8-16); AST/SGOT 23 U/L (7-37); BILIRUBIN,TOTAL 0.3 MG/DL (0.2-1.0); BLOOD UREA NITROGEN 19 MG/DL (7-18); CALCIUM LEVEL 9.9 MG/DL (8.8-10.2); CARBON DIOXIDE LEVEL 31 MEQ/L (21-32); CHLORIDE LEVEL 102 MEQ/L (98-107); CREATININE FOR GFR 0.59 MG/DL (0.55-1.02); GLOMERULAR FILTRATION RATE > 60.0 (>45); GLUCOSE, FASTING 93 MG/DL (80-110); POTASSIUM SERUM 4.7 MEQ/L (3.5-5.1); SODIUM LEVEL 139 MEQ/L (136-145); TOTAL PROTEIN 7.5 GM/DL (6.4-8.2)
[2017-01-24 21:43] LABS: EOSINOPHILS 2 % (0-5)
== END ==
LOC: M WUC 12:19
PROVIDERS: ATTEND Physician Assistant
DX: D47.1 Chronic myeloproliferative disease (principal)

== ENCOUNTER → 2017-02-13 | Outpatient (CLI) | payer MEDICARE, BC ==
[2017-02-13 11:25] LABS: MEAN CORPUSCULAR HEMOGLOBIN 31.3 pg (27.0-33.0); MEAN CORPUSCULAR HGB CONC 32.7 g/dl (32.0-36.5); MEAN CORPUSCULAR VOLUME 95.8 fl (80.0-96.0); PLATELET COUNT, AUTOMATED 508 10^3/uL (150-450); RED CELL DISTRIBUTION WIDTH 12.5 % (11.5-14.5)
[2017-02-13 11:27] LABS: ADD MANUAL DIFFER YES; DIFF SLIDE NUMBER 204; POSITIVE DIFF POS FLAG; WHITE BLOOD COUNT 11.3 10^3/uL (4.0-10.0)
[2017-02-13 11:42] LABS: EOSINOPHILS 1 % (0-5)
[2017-02-13 13:08] LABS: ALBUMIN 3.5 GM/DL (3.2-5.2); ALBUMIN/GLOBULIN RATIO 0.95 (1.00-1.93); ALKALINE PHOSPHATASE 64 U/L (45-117); ALT/SGPT 33 U/L (12-78); ANION GAP 8 MEQ/L (8-16); AST/SGOT 19 U/L (7-37); BILIRUBIN,TOTAL 0.5 MG/DL (0.2-1.0); BLOOD UREA NITROGEN 22 MG/DL (7-18); CALCIUM LEVEL 9.5 MG/DL (8.8-10.2); CARBON DIOXIDE LEVEL 31 MEQ/L (21-32); CHLORIDE LEVEL 102 MEQ/L (98-107); CREATININE FOR GFR 0.56 MG/DL (0.55-1.02); GLOMERULAR FILTRATION RATE > 60.0 (>45); GLUCOSE, FASTING 106 MG/DL (80-110); POTASSIUM SERUM 4.3 MEQ/L (3.5-5.1); SODIUM LEVEL 141 MEQ/L (136-145); TOTAL PROTEIN 7.2 GM/DL (6.4-8.2)
== END ==
LOC: M LAB 10:35
PROVIDERS: ATTEND Physician Assistant
DX: D47.1 Chronic myeloproliferative disease (principal)

== ENCOUNTER → 2017-02-13 | Outpatient (REF) | LOC: M LAB 10:39 | PROVIDERS: ATTEND Nurse Practitioner Adult Health | DX: Z00.00 Encounter for general adult medical examination without abnormal findings (principal) ==

== ENCOUNTER → 2017-03-20 | Outpatient (CLI) | payer MEDICARE, BC ==
[2017-03-20 12:55] LABS: BASO # 0.1 10^3/uL (0.0-0.2); BASO % 0.5 % (0.0-1.0); EOS # 0.2 10^3/uL (0.0-0.50); EOS % 1.5 % (0.0-3.0); HEMATOCRIT 34.5 % (36.0-47.0); HEMOGLOBIN 11.4 g/dl (12.0-16.0); IMMATURE GRANULOCYTE # 0.1 10^3/uL (0-0); IMMATURE GRANULOCYTE % 0.6 % (0-0); LYMPH % 41.1 % (24.0-44.0); MEAN CORPUSCULAR HEMOGLOBIN 31.4 pg (27.0-33.0); MONO # 0.7 10^3/uL (0.0-0.8); MONO % 6.9 % (0.0-5.0); NEUTROPHILS # 4.8 10^3/uL (1.8-7.7); NEUTROPHILS % 49.4 % (36.0-66.0); PLATELET COUNT, AUTOMATED 548 10^3/uL (150-450); RED BLOOD COUNT 3.63 10^6/uL (4.00-5.40); RED CELL DISTRIBUTION WIDTH 13.3 % (11.5-14.5); WHITE BLOOD COUNT 9.7 10^3/uL (4.0-10.0)
[2017-03-20 13:28] LABS: ALBUMIN 3.9 GM/DL (3.2-5.2); ALBUMIN/GLOBULIN RATIO 1.15 (1.00-1.93); ALKALINE PHOSPHATASE 69 U/L (45-117); ALT/SGPT 44 U/L (12-78); ANION GAP 8 MEQ/L (8-16); AST/SGOT 24 U/L (7-37); BILIRUBIN,TOTAL 0.5 MG/DL (0.2-1.0); BLOOD UREA NITROGEN 17 MG/DL (7-18); CALCIUM LEVEL 9.4 MG/DL (8.8-10.2); CARBON DIOXIDE LEVEL 31 MEQ/L (21-32); CHLORIDE LEVEL 101 MEQ/L (98-107); CREATININE FOR GFR 0.59 MG/DL (0.55-1.02); GLOMERULAR FILTRATION RATE > 60.0 (>45); GLUCOSE, FASTING 103 MG/DL (70-100); POTASSIUM SERUM 4.3 MEQ/L (3.5-5.1); SODIUM LEVEL 140 MEQ/L (136-145); TOTAL PROTEIN 7.3 GM/DL (6.4-8.2)
== END ==
LOC: M WUC 10:25
DX: D47.1 Chronic myeloproliferative disease (principal)
CPT/HCPCS: 80053

== ENCOUNTER → 2017-03-22 | Outpatient (CLI) | payer MEDICARE, BC | LOC: M RAD 07:11 | DX: D47.1 Chronic myeloproliferative disease (principal); N28.1 Cyst of kidney, acquired | CPT/HCPCS: 76705 ==

== ENCOUNTER → 2017-04-27 | Outpatient (REF) | payer MEDICARE, BC ==
[2017-04-27 13:25] LABS: BASO # 0.1 10^3/uL (0.0-0.2); BASO % 0.4 % (0.0-1.0); EOS % 0.2 % (0.0-3.0); HEMATOCRIT 35.6 % (36.0-47.0); HEMOGLOBIN 11.6 g/dl (12.0-16.0); IMMATURE GRANULOCYTE % 0.8 % (0-3.0); LYMPH # 2.9 10^3/uL (1.5-4.5); LYMPH % 23.5 % (24.0-44.0); MEAN CORPUSCULAR HEMOGLOBIN 31.3 pg (27.0-33.0); MEAN CORPUSCULAR HGB CONC 32.6 g/dl (32.0-36.5); MONO # 0.6 10^3/uL (0.0-0.8); NEUTROPHILS # 8.5 10^3/uL (1.8-7.7); NEUTROPHILS % 70.1 % (36.0-66.0); PLATELET COUNT, AUTOMATED 585 10^3/uL (150-450); RED BLOOD COUNT 3.71 10^6/uL (4.00-5.40); RED CELL DISTRIBUTION WIDTH 13.5 % (11.5-14.5); WHITE BLOOD COUNT 12.1 10^3/uL (4.0-10.0)
[2017-04-27 13:46] LABS: ALBUMIN 4.1 GM/DL (3.2-5.2); ALBUMIN/GLOBULIN RATIO 1.17 (1.00-1.93); ALKALINE PHOSPHATASE 68 U/L (45-117); ALT/SGPT 34 U/L (12-78); ANION GAP 6 MEQ/L (8-16); AST/SGOT 22 U/L (7-37); BILIRUBIN,TOTAL 0.4 MG/DL (0.2-1.0); BLOOD UREA NITROGEN 20 MG/DL (7-18); CALCIUM LEVEL 9.6 MG/DL (8.8-10.2); CARBON DIOXIDE LEVEL 30 MEQ/L (21-32); CHLORIDE LEVEL 103 MEQ/L (98-107); CREATININE FOR GFR 0.68 MG/DL (0.55-1.30); GLOMERULAR FILTRATION RATE > 60.0 (>45); GLUCOSE, FASTING 99 MG/DL (70-100); LDH LACTATE DEHYDROGENASE 261 U/L (84-246); POTASSIUM SERUM 4.8 MEQ/L (3.5-5.1); SODIUM LEVEL 139 MEQ/L (136-145); TOTAL PROTEIN 7.6 GM/DL (6.4-8.2)
== END ==
LOC: M LABDRWAD 12:42
DX: D47.1 Chronic myeloproliferative disease (principal)
CPT/HCPCS: 83615

== ENCOUNTER → 2017-06-23 | Outpatient (REF) | payer MEDICARE, BC ==
[2017-06-23 11:58] LABS: BASO % 0.5 % (0.0-1.0); EOS # 0.1 10^3/uL (0.0-0.50); EOS % 1.2 % (0.0-3.0); HEMATOCRIT 32.5 % (36.0-47.0); HEMOGLOBIN 10.6 g/dl (12.0-15.5); IMMATURE GRANULOCYTE % 0.8 % (0-3.0); LYMPH % 35.8 % (24.0-44.0); MEAN CORPUSCULAR HEMOGLOBIN 31.5 pg (27.0-33.0); MEAN CORPUSCULAR HGB CONC 32.6 g/dl (32.0-36.5); MEAN CORPUSCULAR VOLUME 96.7 fl (80.0-96.0); MONO # 0.5 10^3/uL (0.0-0.8); MONO % 5.6 % (0.0-5.0); NEUTROPHILS # 4.7 10^3/uL (1.8-7.7); NEUTROPHILS % 56.1 % (36.0-66.0); PLATELET COUNT, AUTOMATED 502 10^3/uL (150-450); RED BLOOD COUNT 3.36 10^6/uL (4.00-5.40); RED CELL DISTRIBUTION WIDTH 13.7 % (11.5-14.5); WHITE BLOOD COUNT 8.4 10^3/uL (4.0-10.0)
[2017-06-23 12:24] LABS: ALBUMIN/GLOBULIN RATIO 1.29 (1.00-1.93); ALKALINE PHOSPHATASE 63 U/L (45-117); ALT/SGPT 32 U/L (12-78); ANION GAP 4 MEQ/L (8-16); AST/SGOT 18 U/L (7-37); BILIRUBIN,TOTAL 0.4 MG/DL (0.2-1.0); BLOOD UREA NITROGEN 20 MG/DL (7-18); CALCIUM LEVEL 9.6 MG/DL (8.8-10.2); CARBON DIOXIDE LEVEL 30 MEQ/L (21-32); CHLORIDE LEVEL 105 MEQ/L (98-107); CREATININE FOR GFR 0.62 MG/DL (0.55-1.30); GLOMERULAR FILTRATION RATE > 60.0 (>45); GLUCOSE, FASTING 94 MG/DL (70-100); LDH LACTATE DEHYDROGENASE 245 U/L (84-246); POTASSIUM SERUM 4.6 MEQ/L (3.5-5.1); SODIUM LEVEL 139 MEQ/L (136-145); TOTAL PROTEIN 7.1 GM/DL (6.4-8.2)
== END ==
LOC: M LABDRAW1 11:40
DX: D47.1 Chronic myeloproliferative disease (principal)
CPT/HCPCS: 83615

== ENCOUNTER → 2017-07-31 | Outpatient (REF) | payer MEDICARE, BC ==
[2017-08-02 09:54] LABS: HEPATITIS C VIRUS ABY INDEX < 0.0 INDEX (<0.8)
== END ==
LOC: M LAB REF 18:04
DX: Z11.59 Encounter for screening for other viral diseases (principal)
CPT/HCPCS: 86803

== ENCOUNTER → 2017-09-26 | Outpatient (CLI) | payer MEDICARE, BC ==
[2017-09-26 12:49] LABS: BASO % 0.4 % (0.0-1.0); EOS # 0.1 10^3/uL (0.0-0.50); HEMATOCRIT 34.6 % (36.0-47.0); LYMPH # 3.3 10^3/uL (1.5-4.5); LYMPH % 34.7 % (24.0-44.0); MEAN CORPUSCULAR HEMOGLOBIN 31.1 pg (27.0-33.0); MEAN CORPUSCULAR HGB CONC 31.8 g/dl (32.0-36.5); MEAN CORPUSCULAR VOLUME 97.7 fl (80.0-96.0); MONO # 0.5 10^3/uL (0.0-0.8); MONO % 5.2 % (0.0-5.0); NEUTROPHILS # 5.5 10^3/uL (1.8-7.7); NEUTROPHILS % 57.7 % (36.0-66.0); PLATELET COUNT, AUTOMATED 517 10^3/uL (150-450); RED BLOOD COUNT 3.54 10^6/uL (4.00-5.40); RED CELL DISTRIBUTION WIDTH 13.7 % (11.5-14.5); WHITE BLOOD COUNT 9.6 10^3/uL (4.0-10.0)
[2017-09-26 13:20] LABS: ALBUMIN 3.7 GM/DL (3.2-5.2); ALBUMIN/GLOBULIN RATIO 1.12 (1.00-1.93); ALKALINE PHOSPHATASE 68 U/L (45-117); ALT/SGPT 34 U/L (12-78); ANION GAP 9 MEQ/L (8-16); AST/SGOT 21 U/L (7-37); BILIRUBIN,TOTAL 0.3 MG/DL (0.2-1.0); BLOOD UREA NITROGEN 23 MG/DL (7-18); CALCIUM LEVEL 9.4 MG/DL (8.8-10.2); CARBON DIOXIDE LEVEL 28 MEQ/L (21-32); CHLORIDE LEVEL 105 MEQ/L (98-107); CREATININE FOR GFR 0.69 MG/DL (0.55-1.30); GLOMERULAR FILTRATION RATE > 60.0 (>45); GLUCOSE, FASTING 132 MG/DL (70-100); LDH LACTATE DEHYDROGENASE 262 U/L (84-246); POTASSIUM SERUM 4.7 MEQ/L (3.5-5.1); SODIUM LEVEL 142 MEQ/L (136-145)
== END ==
LOC: M WUC 08:53
DX: D47.1 Chronic myeloproliferative disease (principal)
CPT/HCPCS: 83615

== ENCOUNTER → 2018-05-20 | Outpatient (REF) | payer MEDICARE, BC ==
[~2018-05-20] MED LIST changes: -DRIS50002 PO; +DRIS50003 PO; -ZYLO300T4 PO; +ZYLO300T6 PO; +[UNRECOGNIZED DRUG - CODE] PO; -[UNRECOGNIZED DRUG - CODE] PO
== END ==
LOC: M LAB REF 14:11
PROVIDERS: ATTEND Family Medicine
DX: R19.7 Diarrhea, unspecified (principal)

== ENCOUNTER → 2018-06-12 | Outpatient (REF) | payer MEDICARE, BC ==
[~2018-06-12] MED LIST changes: +HYDR-2541 PO; +[UNRECOGNIZED DRUG - CODE] PO; -[UNRECOGNIZED DRUG - CODE] PO
== END ==
LOC: M LAB REF 09:37
PROVIDERS: ATTEND Family Medicine
DX: R19.7 Diarrhea, unspecified (principal)

== ENCOUNTER 2018-06-19 09:04 | Emergency (ER) | payer MEDICARE, BC ==
[~2018-06-19] VITALS: Ht 165.1 cm; Wt 109.1 kg
[2018-06-19] MEDS ORDERED: [UNRECOGNIZED DRUG - CODE] PO (09:14)
[2018-06-19] MEDS ORDERED: ENAL10TA2 PO (09:14)
[2018-06-19 09:42] LABS: BASO # 0.1 10^3/uL (0.0-0.2); BASO % 0.5 % (0.0-1.0); EOS # 0.1 10^3/uL (0.0-0.50); HEMATOCRIT 35.1 % (36.0-47.0); HEMOGLOBIN 11.3 g/dl (12.0-15.5); LYMPH # 2.6 10^3/uL (1.5-4.5); LYMPH % 26.2 % (24.0-44.0); MEAN CORPUSCULAR HEMOGLOBIN 31.2 pg (27.0-33.0); MEAN CORPUSCULAR HGB CONC 32.2 g/dl (32.0-36.5); MONO # 0.7 10^3/uL (0.0-0.8); MONO % 6.7 % (0.0-5.0); NEUTROPHILS # 6.3 10^3/uL (1.8-7.7); NEUTROPHILS % 64.9 % (36.0-66.0); PLATELET COUNT, AUTOMATED 535 10^3/uL (150-450); RED BLOOD COUNT 3.62 10^6/uL (4.00-5.40); WHITE BLOOD COUNT 9.7 10^3/uL (4.0-10.0)
[2018-06-19] MEDS ORDERED: GI COCKTAIL 50ML BTL(HYOSCYAMINE/MAALOX/LIDOCAINE VISCOUS)(1:3:1) PO ONE (09:45)
[2018-06-19] MEDS ORDERED: NITROGLYCERIN 0.4 MG SUBL TABLET SL PRN (09:45)
--- NOTE | 2018-06-19 09:55 | REP ---
Chest one-view HISTORY: Chest pain Comparison: 05/05/2016 The lungs are clear. The heart is normal in size. The pulmonary vasculature is normal in appearance. Impression: No acute disease. Electronically Signed by Johann Whitehead MD 06/19/2018 09:47 A
[2018-06-19 09:59] LABS: INR 1.04; PROTHROMBIN TIME 13.7 SECONDS (12.1-14.4)
[2018-06-19 10:19] LABS: ALBUMIN 4.1 GM/DL (3.2-5.2); ALT/SGPT 35 U/L (12-78); BILIRUBIN,DIRECT 0.1 MG/DL (0.0-0.2); BILIRUBIN,TOTAL 0.4 MG/DL (0.2-1.0); BLOOD UREA NITROGEN 22 MG/DL (7-18); CALCIUM LEVEL 9.4 MG/DL (8.8-10.2); CARBON DIOXIDE LEVEL 25 MEQ/L (21-32); CHLORIDE LEVEL 105 MEQ/L (98-107); CPK CREATINE PHOSPHOKINASE 163 U/L (26-192); CREATININE FOR GFR 0.59 MG/DL (0.55-1.30); GLOMERULAR FILTRATION RATE > 60.0 (>45); GLUCOSE, FASTING 125 MG/DL (70-100); LIPASE 168 U/L (73-393); MB/CK RELATIVE INDEX 1.53 (< OR =4); NT-PRO BNP 74 PG/ML (<125); POTASSIUM SERUM 4.9 MEQ/L (3.5-5.1); SODIUM LEVEL 138 MEQ/L (136-145); THYROID STIMULATING HORMONE 0.876 uIU/ML (0.358-3.740); TOTAL PROTEIN 7.2 GM/DL (6.4-8.2); TROPONIN I 0.04 NG/ML (< 0.10)
[2018-06-19 12:23] LABS: MB/CK RELATIVE INDEX 2.13 (< OR =4); TROPONIN I 0.41 NG/ML (< 0.10)
[2018-06-19] MEDS ORDERED: ISOVUE-370 76% 100ML VIAL (Q9967) As Ordered ONE (13:53)
--- NOTE | 2018-06-19 15:03 | REP ---
REASON: Chest pain and dyspnea. COMPARISON: 06/02/2015 CONTRAST: 100 mL Isovue 370. There is excellent visualization of the pulmonary arterial vasculature. There are no focal filling defects present that would be consistent with acute pulmonary emboli. There is no mediastinal or hilar adenopathy. There are no pleural or pericardial effusions. The imaged upper abdomen is within normal limits. The imaged osseous structures are stable from the prior exam showing spinal degenerative changes. Evaluation of the lung mello shows scattered ground-glass opacities, most consistent with subsegmental atelectatic changes. IMPRESSION: No evidence of pulmonary embolus. No evidence of acute disease. Findings as described above. Electronically Signed by Jacob Waggoner DO 06/20/2018 10:37 A
[2018-06-19] MEDS: ASPIRIN 81 MG CHEW TABLET PO ONE ×2 (16:00→16:45)
[2018-06-19 16:22] LABS: CK-MB VALUE MASS 4.4 NG/ML (<3.6); MB/CK RELATIVE INDEX 2.63 (< OR =4)
[2018-06-19 16:23] LABS: TROPONIN I 0.99 NG/ML (< 0.10)
[2018-06-19] MEDS ORDERED: NITROGLYCERIN 2% OINT 1 GM *U/D* PKT TOP ONE (16:45)
[2018-06-19] MEDS ORDERED: ASPIRIN 81 MG CHEW TABLET PO ONE ×2 (16:45→18:00)
[2018-06-19 17:04] VITALS: BP 210/90
[2018-06-19 17:53] VITALS: BP 195/84
--- NOTE | 2018-06-19 23:19 | ECGEPIP ---
Stationary ECG Study [facility] - ED Test Date: 2018-06-19 Pat Name: BRET MICHELLE Department: Room: - Gender: F Screed Operator: : 1950 Requested By: Yelena Loaiza Order Number: [id number] Reading MD: Roland Peña Measurements Intervals [place] Rate: 58 P: -7 GA: 143 QRS: 35 QRSD: 94 T: 49 QT: 412 QTc: 406 Interpretive Statements SINUS BRADYCARDIA NSTTW ABNORMALITIES SIMILAR TO PRIOR ON SAME DATE Electronically Signed On 06-19-2018 23:19:12 EDT by Roland Peña
--- NOTE | 2018-06-19 23:19 | ECGEPIP ---
Stationary ECG Study [facility] - ED Test Date: 2018-06-19 Pat Name: BRET MICHELLE Department: Room: - Gender: F Information Technology Manager: : 1950 Requested By: Yelena Loaiza Order Number: [id number] Reading MD: Roland Peña Measurements Intervals [place] Rate: 69 P: 44 CT: 130 QRS: 43 QRSD: 94 T: 74 QT: 387 QTc: 416 Interpretive Statements SINUS RHYTHM NSTTW ABNORMALITIES SIMILAR TO 05/05/16 Electronically Signed On 06-19-2018 23:18:27 EDT by Roland Peña
--- NOTE | 2018-06-22 19:25 | ECGEPIP ---
Stationary ECG Study [facility] - ED Test Date: 2018-06-19 Pat Name: BRET MICHELLE Department: Room: - Gender: F Coil Binder: : 1950 Requested By: Yelena Loaiza Order Number: [id number] Reading MD: Yelena Loaiza Measurements Intervals [place] Rate: 67 P: 22 [place]: 135 QRS: 24 QRSD: 92 T: 51 QT: 389 QTc: 412 Interpretive Statements SINUS RHYTHM NSTTW ABNORMALITY INCREASED RATE 10:45 Electronically Signed On 06-22-2018 19:24:42 EDT by Yelena Loaiza
== END 2018-06-19 17:56 | disposition short-term general hospital (02) ==
LOC: M ED 09:04
DX: R07.9 Chest pain, unspecified (principal); R79.9 Abnormal finding of blood chemistry, unspecified; I10 Essential (primary) hypertension; E78.5 Hyperlipidemia, unspecified; D45 Polycythemia vera
CPT/HCPCS: 36415; 71045; 71275; 80048; 80076; 82550; 82553; 83690; 83880; 84443; 84484; 85025; 85610; 93005; 93041; 94760; 99285; Q9967

== ENCOUNTER 2018-08-23 09:57 | Outpatient (RCR) | payer MEDICARE, BC ==
--- NOTE | 2018-08-01 10:45 | CARECAPL ---
Assessment Account #s: Initial Assessment General Diagnoses: Stent Date of event: Jun 20, 2018 Physician: Kirstie Xiao MD Allergies: Coded Allergies: amlodipine (Verified Allergy, Severe, SEVERE EDEMA, 06/19/18) thimerosal (Verified Allergy, Unknown, REACTION TO PERSERVATIVE IN EYES DROPS,FLU INJECTIOS, 06/19/18) ropinirole (Verified Adverse Reaction, Intermediate, PASSED OUT, N/V, DIZZY, DISORIENTED, 06/19/18) Date Entered Program: Aug 01, 2018 Risk strat for cardiac event: High Exercise Date: Aug 01, 2018 Assessment: Initial Assessment Exercise Prescription Plan to educate about cardiac risk factors and to exercise to build strength and endurance through a monitored exercise program Modalities initiated: Treadmill (will add), Nustep (will add), Arm Aerometer (will add), Dumbells (will add), Recumbent Bike (will add) Frequency: 2 Duration (Minutes) 30-60 minutes total exercise a day. 6-10 work intervals in minutes. as needed - rest intervals in minutes. Functional Capacity Goal Sustained Metabolic Equivalent of a task (MET) goal of for minutes. Intensity: 3-Moderate Progression (METS) Increase by: 0.5 METS every: 2-3 sessions Angina with ex: No Target Heart Rate rest + 35-40 betablocker therapy Resistance Training: Yes Weight (pounds): 1 Reps: 6-8 Hypertension: Yes Hypertension controlled with: Diet Resting 158/69 Peak Exercise BP will determine on first exercise Meds see below Medications Scheduled Allopurinol (Allopurinol), 100 MG PO DAILY, (Reported) Ascorbic Acid (Vitamin C), 500 MG PO DAILY, (Reported) Aspirin (Aspirin), 81 MG PO DAILY, (Reported) Bimatoprost (Lumigan), 1 DROP OU QHS, (Reported) Brinzolamide (Azopt), 1 DROP OS BID, (Reported) Cholecalciferol (Vitamin D3) (Vitamin D3), 2,000 UNIT PO DAILY, (Reported) Enalapril Maleate (Enalapril Maleate), 20 MG PO DAILY, (Reported) Enalapril Maleate (Enalapril Maleate), 10 MG PO DAILY, (Reported) Ergocalciferol (Vitamin D2) (Drisdol), 50,000 UNIT PO WEEKLY, (Reported) Ezetimibe (Zetia), 10 MG PO DAILY, (Reported) Magnesium Oxide (Magnesium), 400 MG PO DAILY, (Reported) Metformin HCl (Metformin HCl), 500 MG PO DAILY, (Reported) Metoprolol Tartrate (Metoprolol Tartrate), 25 MG PO BID, (Reported) Ruxolitinib Phosphate (Jakafi), 25 MG PO BID, (Reported) Ticagrelor Base (Brilinta), 90 MG PO BID, (Reported) Timolol (Betimol), 1 DROP OU QAM, (Reported) Discontinued Medications Ascorbic Acid (Vitamin C 500 mg), 500 MG PO DAILY, (Reported) Discontinued Reason: Pt states not taking Education Goals Met: No Target Goals Individual exercise Rx (1) BP 140/90 or 130/80 if DM or CKD (1) Aerobic active 30+min 5 days per week (1) Nutrition Date: Aug 01, 2018 Assessment: Initial Assessment Lipid- med/supplement zetia Med Change: No Diabetes Diabetes: Yes (type 2) HbA1c (%): 6.7 Diabetes medication Metformin Monitor Blood Sugar at home: Yes Frequency daily Weight Management Weight (lbs): 245.6 Height (inches): 69 Waist Circumference (Inches): 49 BMI: 36.2 Special Diet: low salt, mediteranean diet, low-fat, other (diabetic) Alcohol: none Diet Access Tool: Rate your plate Score: 64 Intervention Booking Agent Consult: Yes Nurse/patient discussion: Yes Dietary Goals to have smaller portions and Make better choices Diet Class: No (will see revenue research analyst this program) Referral to Diabetes education: Yes Referral to lipid clinic: Yes Referral to weight mangement p: Yes Education S&S hypo/hyper glycemia, Relate Diabetes in CAD, Eating Healthy Education Goals Met: No Target goal LDL-C<100 if triglycerides are >200 Non-HDL-C should be <130 (1) LDL-C<70 for high risk patients (4) HbA1c<7% (1) BMI<25 Waist cir<40in M/<35in F (1) Education Date: Aug 01, 2018 Assessment: Initial Assessment Knowledge Test Score: 6 Family Support: Yes Tobacco use: No Intervention Referral to smoking cessation: No Individual education and couns: No Tobacco Adjunct: No Education class schedule given: Yes Education Goals Met: No (will attend education classes throughout program) Target Goals Complete cessation of tobacco use (1). Psychosocial Date: Aug 01, 2018 Assessment: Initial Assessment Psych Test (Initial/Discharge) Tool Used: CESD Score: 1 Intervention Physician Consult: No Physician Referral: No Stress Management Class: Yes Uses Stress Management Skills: Yes Education Goals Met: No Target Goal Assess presence or absence of depression using a valid screening tool (1). Maximize coping skills (2). Positive support system (2). Patient/Program Goal Preventative Medication: Yes Aspirin, Yes Beta blockade, Yes PATRICE Inhibitor, Yes Statin/OTR lipid Lowering Fall Risk Assess: No Provider Assessment Session Number: 1 Provider Assessment: Proceed with rehab Adelina Torres RN Aug 01, 2018 10:44
[~2018-08-23 09:57] MED LIST changes: +ASPI81CH33 PO; +BRIL90TA PO; +ENAL10TA2 PO; +METO1TAB87 PO; +VITA500C24 PO; +ZETI10TA30 PO; +[UNRECOGNIZED DRUG - CODE] PO
== END 2018-08-26 ==
LOC: M CR 09:57
PROVIDERS: ATTEND Family Medicine
DX: Z98.61 Coronary angioplasty status (principal)

== ENCOUNTER 2018-09-24 08:52 | Outpatient (RCR) | payer MEDICARE, BC ==
--- NOTE | 2018-08-27 14:33 | CARECAPL ---
Assessment Account #s: Re-Assessment I General Diagnoses: Stent Date of event: Jun 20, 2018 Physician: Kirstie Xiao MD Allergies: Coded Allergies: amlodipine (Verified Allergy, Severe, SEVERE EDEMA, 06/19/18) thimerosal (Verified Allergy, Unknown, REACTION TO PERSERVATIVE IN EYES DROPS,FLU INJECTIOS, 06/19/18) ropinirole (Verified Adverse Reaction, Intermediate, PASSED OUT, N/V, DIZZY, DISORIENTED, 06/19/18) Date Entered Program: Aug 01, 2018 Risk strat for cardiac event: High Exercise Date: Aug 27, 2018 Assessment: Re-Assessment I Exercise Prescription Plan TO EDUCATE AND BUILD ENDURANCE THROUGH MONITORED EXERCISE Modalities initiated: Treadmill (METS=2.53/RPE=3), Nustep (METS=3.7/RPE=3), Arm Aerometer (METS=2.0/RPE=3), Dumbells (2#/RPE=2), Recumbent Bike (METS=2.0/RPE=3) Frequency: 3 Duration (Minutes) 30-60 minutes total exercise a day. 12-15 work intervals in minutes. 5 MIN rest intervals in minutes. Functional Capacity Goal Sustained Metabolic Equivalent of a task (MET) goal of 3.5-4.0 for 15-20 minutes. Intensity: 3-Moderate Progression (METS) Increase by: 0.5 METS every: 5 sessions Angina with ex: No Target Heart Rate +35-40 BETA ZHAO THERAPY Resistance Training: Yes Weight (pounds): 2 Reps: 12-15 Hypertension: Yes Hypertension controlled with: Medication Resting 90/60 Peak Exercise BP 150/90 Medications Scheduled Allopurinol (Allopurinol), 100 MG PO DAILY, (Reported) Ascorbic Acid (Vitamin C), 500 MG PO DAILY, (Reported) Aspirin (Aspirin), 81 MG PO DAILY, (Reported) Bimatoprost (Lumigan), 1 DROP OU QHS, (Reported) Brinzolamide (Azopt), 1 DROP OS BID, (Reported) Cholecalciferol (Vitamin D3) (Vitamin D3), 2,000 UNIT PO DAILY, (Reported) Enalapril Maleate (Enalapril Maleate), 20 MG PO DAILY, (Reported) Enalapril Maleate (Enalapril Maleate), 10 MG PO DAILY, (Reported) Ergocalciferol (Vitamin D2) (Drisdol), 50,000 UNIT PO WEEKLY, (Reported) Ezetimibe (Zetia), 10 MG PO DAILY, (Reported) Magnesium Oxide (Magnesium), 400 MG PO DAILY, (Reported) Metformin HCl (Metformin HCl), 500 MG PO DAILY, (Reported) Metoprolol Tartrate (Metoprolol Tartrate), 25 MG PO BID, (Reported) Ruxolitinib Phosphate (Jakafi), 25 MG PO BID, (Reported) Ticagrelor Base (Brilinta), 90 MG PO BID, (Reported) Timolol (Betimol), 1 DROP OU QAM, (Reported) Current BP 120/80 Med Change: No Intervention Home exercise: Type (WALKING,HAND WEIGHTS,PLANET FITNESS MEMBER), Frequency (3- 5 DAYS PER WEEK), Duration (30-60 MINUTES) Resistance Training: Yes Education: Self pulse, Ex safety, S/S to report, Low NA diet, BP medication, RPE Scale, Equipment orientation, warm up/cool down, Understand BP, Physical Active Target Goals Individual exercise Rx (1) BP 140/90 or 130/80 if DM or CKD (1) Aerobic active 30+min 5 days per week (1) Nutrition Date: Aug 27, 2018 Assessment: Re-Assessment I Lipid- med/supplement ZETIA Med Change: No Diabetes Diabetes: Yes (TYPE II) Fasting Blood Sugar: 109 Diabetes medication METFORMIN Monitor Blood Sugar at home: Yes Frequency DAILY Medication Change: No Weight Management Weight (lbs): 245.6 Weight goal: 175 Special Diet: low salt (DIABETIC), low-fat Vitamin/Supplements: Vitamin C, Vitamin D Current Weight (pounds): 245.6 Weight Goal 175 Intervention Numerical Control Nesting Operator Consult: No Nurse/patient discussion: Yes Dietary Goals SMALLER PORTIONS/HEART HEALTHY CHOICES Diet Class: Yes (WILL SEE SAP PORTAL ARCHITECT WHILE IN PROGRAM) Referral to Diabetes education: Yes Referral to lipid clinic: No Referral to weight mangement p: No Education S&S hypo/hyper glycemia, Relate Diabetes in CAD, Eating Healthy Education Goals Met: Yes (PROGRESSING TOWARD GOALS) Target goal LDL-C<100 if triglycerides are >200 Non-HDL-C should be <130 (1) LDL-C<70 for high risk patients (4) HbA1c<7% (1) BMI<25 Waist cir<40in M/<35in F (1) Education Date: Aug 27, 2018 Assessment: Re-Assessment I Family Support: Yes Tobacco use: No Intervention Education class schedule given: Yes Attended education classes: Yes Education: CAD, Risk factors, med compliance, cardiac A&P, Angina S/S, Sexuality Education Goals Met: Yes (PROGRESSING TOWARD GOALS) Target Goals Complete cessation of tobacco use (1). Psychosocial Date: Aug 27, 2018 Assessment: Re-Assessment I Intervention Physician Consult: No Physician Referral: No Stress Management Class: Yes Uses Stress Management Skills: Yes Education Education: Coping Techniques, S/S depression, Relaxation Techniques Education Goals Met: Yes (PROGRESSING TOWARD GOALS) Target Goal Assess presence or absence of depression using a valid screening tool (1). Maximize coping skills (2). Positive support system (2). Provider Assessment Session Number: 7 Provider Assessment: No changes Rhett Armstrong RN Aug 27, 2018 14:33
--- NOTE | 2018-09-19 13:04 | CARECAPL ---
Assessment Account #s: Re-Assessment II General Diagnoses: Stent Date of event: Jun 20, 2018 Physician: Kirstie Xiao MD Allergies: Coded Allergies: amlodipine (Verified Allergy, Severe, SEVERE EDEMA, 06/19/18) thimerosal (Verified Allergy, Unknown, REACTION TO PERSERVATIVE IN EYES DROPS,FLU INJECTIOS, 06/19/18) ropinirole (Verified Adverse Reaction, Intermediate, PASSED OUT, N/V, DIZZY, DISORIENTED, 06/19/18) Date Entered Program: Aug 01, 2018 Risk strat for cardiac event: High Exercise Date: Sep 17, 2018 Assessment: Re-Assessment II Exercise Prescription Plan educate and increase endurance and flexibility through monitored exercise. Modalities initiated: Treadmill (Speed 2.2 incline 0.5 for 12 minutes mets 2.99 RPE 3.5), Nustep (level 5 for 15 minutes mets 4.7 RPE 4), Arm Aerometer (resistance 2.5 for 10 minutes mets 2.4 RPE 3.5), Dumbells (4 lbs 2 sets 12-15 reps RPE 2.5), Recumbent Bike (Resistance 2 for 8 minutes mets 3.2 RPE 4 ) Frequency: 2-3 Duration (Minutes) 30-60 minutes total exercise a day. 15-20 work intervals in minutes. prn rest intervals in minutes. Functional Capacity Goal Sustained Metabolic Equivalent of a task (MET) goal of 4.0-4.5 for 15-20 minutes. Intensity: 3-Moderate Progression (METS) Increase by: 0.5 METS every: 3-5 sessions Angina with ex: No Target Heart Rate rest + 35-40 per beta jose therapy Resistance Training: Yes Weight (pounds): 4 Reps: 12-15 Resting 148/70 Peak Exercise BP 164/98 Meds metoprolol Medications Scheduled Allopurinol (Allopurinol), 100 MG PO DAILY, (Reported) Ascorbic Acid (Vitamin C), 500 MG PO DAILY, (Reported) Aspirin (Aspirin), 81 MG PO DAILY, (Reported) Bimatoprost (Lumigan), 1 DROP OU QHS, (Reported) Brinzolamide (Azopt), 1 DROP OS BID, (Reported) Cholecalciferol (Vitamin D3) (Vitamin D3), 2,000 UNIT PO DAILY, (Reported) Enalapril Maleate (Enalapril Maleate), 20 MG PO DAILY, (Reported) Enalapril Maleate (Enalapril Maleate), 10 MG PO DAILY, (Reported) Ergocalciferol (Vitamin D2) (Drisdol), 50,000 UNIT PO WEEKLY, (Reported) Ezetimibe (Zetia), 10 MG PO DAILY, (Reported) Magnesium Oxide (Magnesium), 400 MG PO DAILY, (Reported) Metformin HCl (Metformin HCl), 500 MG PO DAILY, (Reported) Metoprolol Tartrate (Metoprolol Tartrate), 25 MG PO BID, (Reported) Ruxolitinib Phosphate (Jakafi), 25 MG PO BID, (Reported) Ticagrelor Base (Brilinta), 90 MG PO BID, (Reported) Timolol (Betimol), 1 DROP OU QAM, (Reported) Current BP 148/70 Med Change: No Intervention Education: Self pulse (Patient demonstrated independence), Ex safety (Patient stated understanding to keep hydrated, wear comfortable clothing and shoes while exercising. ), S/S to report (patient instructed to report any s/s of chest pressure, n/v, excessive sweating and radiating pain. Patient verbalized understanding), Low NA diet (Discussed low sodium options and replacements to low sodium version. patient verbalized understanding.), RPE Scale (patient demonstates independence), Equipment orientation (patient needs assistance minimally. ), warm up/cool down (patient demonstrates independence), Understand BP (patient needs reinforcement of understanding of BP and what each number means. ), Physical Active (Patient verbalized understanding that she needs to maintain physical active for weight management and to remain healthy.) Target Goals Individual exercise Rx (1) BP 140/90 or 130/80 if DM or CKD (1) Aerobic active 30+min 5 days per week (1) Nutrition Date: Sep 19, 2018 Assessment: Re-Assessment II Med Change: No Medication Change: No Random Blood Sugar: 123 Blood sugar in range: Yes Current Weight (pounds): 245.6 Weight Goal 155 Intervention Systematic Theology Professor Consult: No Nurse/patient discussion: Yes Dietary Goals eat healthier portions Diet Class: Yes Education S&S hypo/hyper glycemia (discussed s/s of hypo/hyperglycemia. Patient was able to describe various s/s of hyper/hypo glycemia. ), Relate Diabetes in CAD (patient verbalized understanding how diabetes is directly related to cardiovascular disease.), Eating Healthy (Patient verbalized understanding of healthy portions and better food choices after discussion with the nurse and transmitter operator.) Education Goals Met: Yes Target goal LDL-C<100 if triglycerides are >200 Non-HDL-C should be <130 (1) LDL-C<70 for high risk patients (4) HbA1c<7% (1) BMI<25 Waist cir<40in M/<35in F (1) Education Date: Sep 19, 2018 Assessment: Re-Assessment II Intervention Education: CAD, Risk factors (patient verbalized risk factors such as overweight and eating fatty foods ), med compliance (Patient verbalized understanding of being compliant with medications.), cardiac A&P (patient verbalized the mechanics of heart and what each part does.), Angina S/S (Patient verbalized s/s of angina such as chest pressure during walking or exercise that is relieved with sitting. ), Sexuality (patient verbalized no sexual intercourse without permission from MD.) Target Goals Complete cessation of tobacco use (1). Psychosocial Date: Sep 19, 2018 Assessment: Re-Assessment II Med Change: No Stress Management Class: Yes Uses Stress Management Skills: Yes Education Education: Coping Techniques (patient verbalizes making more time for herself and eating healthier. ), S/S depression (patient verbalized symptoms of withdrawal and loss of appetite as signs of depression.), Relaxation Techniques (Patient states for relaxation she can read a book or listen to music.) Education Goals Met: Yes Target Goal Assess presence or absence of depression using a valid screening tool (1). Maximize coping skills (2). Positive support system (2). Patient/Program Goal Preventative Medication: Yes Aspirin, Yes Beta blockade, Yes PATRICE Inhibitor, Yes Other (zetia and brilinta) Fall Risk Assess: Yes (no fall risk) Provider Assessment Session Number: 15 Provider Assessment: Proceed with rehab (progressing) Gely Garcia RN Sep 19, 2018 13:04
[~2018-09-24 08:52] MED LIST changes: +ASPI-525 PO; -[UNRECOGNIZED DRUG - CODE] PO
== END 2018-09-26 ==
LOC: M CR 08:52
PROVIDERS: ATTEND Family Medicine
DX: Z98.61 Coronary angioplasty status (principal)

== ENCOUNTER 2018-10-10 13:23 | Outpatient (RCR) | payer MEDICARE, BC ==
[~2018-10-10 13:23] MED LIST changes: +ZETI10TA16 PO; -ZETI10TA30 PO
--- NOTE | 2018-10-10 13:32 | CARECAPL ---
Assessment Account #s: Re-Assessment II (discharge assessment) General Diagnoses: Stent Date of event: Oct 10, 2018 Physician: Jaden Brown Allergies: Coded Allergies: amlodipine (Verified Allergy, Severe, SEVERE EDEMA, 06/19/18) thimerosal (Verified Allergy, Unknown, REACTION TO PERSERVATIVE IN EYES DROPS,FLU INJECTIOS, 06/19/18) ropinirole (Verified Adverse Reaction, Intermediate, PASSED OUT, N/V, DIZZY, DISORIENTED, 06/19/18) Date Entered Program: Aug 01, 2018 Risk strat for cardiac event: High Exercise Date: Oct 10, 2018 Assessment: Followup/Discharge Exercise Prescription Modalities initiated: Treadmill (2.3/1.5 mts 3.08 rpe 3 13 minutes), Arm Aerometer (4.0 mts 2.5 rpe 3 10 minutes), Dumbells, Recumbent Bike (R2 mts 4.3 rpe 3 10 minutes), Elliptimill (L2 mts 2.34 rpe 4 5 minutes) Duration (Minutes) minutes total exercise a day. work intervals in minutes. rest intervals in minutes. Functional Capacity Goal Sustained Metabolic Equivalent of a task (MET) goal of for minutes. Intensity: 3-Moderate Progression (METS) Increase by: METS every: sessions Angina with ex: No Weight (pounds): 5 Reps: 8-12 Hypertension: Yes Hypertension controlled with: Diet Resting 140/80 Peak Exercise BP 178/84 Meds see below Medications Scheduled Allopurinol (Allopurinol), 100 MG PO DAILY, (Reported) Ascorbic Acid (Vitamin C), 500 MG PO DAILY, (Reported) Aspirin (Aspirin), 81 MG PO DAILY, (Reported) Bimatoprost (Lumigan), 1 DROP OU QHS, (Reported) Brinzolamide (Azopt), 1 DROP OS BID, (Reported) Cholecalciferol (Vitamin D3) (Vitamin D3), 2,000 UNIT PO DAILY, (Reported) Enalapril Maleate (Enalapril Maleate), 20 MG PO DAILY, (Reported) Enalapril Maleate (Enalapril Maleate), 10 MG PO DAILY, (Reported) Ergocalciferol (Vitamin D2) (Drisdol), 50,000 UNIT PO WEEKLY, (Reported) Ezetimibe (Zetia), 10 MG PO DAILY, (Reported) Magnesium Oxide (Magnesium), 400 MG PO DAILY, (Reported) Metformin HCl (Metformin HCl), 500 MG PO DAILY, (Reported) Metoprolol Tartrate (Metoprolol Tartrate), 25 MG PO BID, (Reported) Ruxolitinib Phosphate (Jakafi), 25 MG PO BID, (Reported) Ticagrelor Base (Brilinta), 90 MG PO BID, (Reported) Timolol (Betimol), 1 DROP OU QAM, (Reported) Education Goals Met: Yes (all education covered in prior ITP) Target Goals Individual exercise Rx (1) BP 140/90 or 130/80 if DM or CKD (1) Aerobic active 30+min 5 days per week (1) Nutrition Date: Oct 10, 2018 Assessment: Followup/Discharge Med Change: No Diet Access Tool: Rate your plate (not completed at d/c) Intervention Diet Class: Yes (08/27/2018) Education Eating Healthy (completed prior ITPS) Education Goals Met: Yes Target goal LDL-C<100 if triglycerides are >200 Non-HDL-C should be <130 (1) LDL-C<70 for high risk patients (4) HbA1c<7% (1) BMI<25 Waist cir<40in M/<35in F (1) Education Date: Oct 10, 2018 Assessment: Followup/Discharge Education Goals Met: Yes Target Goals Complete cessation of tobacco use (1). Psychosocial Date: Oct 10, 2018 Assessment: Followup/Discharge Psych Test (Initial/Discharge) Tool Used: Other (depression scale not completed on d/c) Intervention Physician Consult: No Physician Referral: No Stress Management Class: Yes Uses Stress Management Skills: Yes Education Goals Met: Yes (all education completed on prior ITP) Target Goal Assess presence or absence of depression using a valid screening tool (1). Maximize coping skills (2). Positive support system (2). Fall Risk Assess: No (not completed on d/c) Provider Assessment Session Number: 20 Provider Assessment: No changes (good attendance, worked hard,) Adelina Torres RN Oct 10, 2018 13:32
== END 2018-10-27 ==
LOC: M CR 13:23
PROVIDERS: ATTEND Family Medicine
DX: Z98.61 Coronary angioplasty status (principal)

== ENCOUNTER → 2019-01-03 | Outpatient (REF) | payer MEDICARE, BC ==
[2019-01-03 11:33] LABS: CHOLESTEROL RISK RATIO 2.575 (<5)
== END ==
LOC: M LABDRWAD 10:02
PROVIDERS: ATTEND Internal Medicine Interventional Cardiology
DX: I25.10 Atherosclerotic heart disease of native coronary artery without angina pectoris (principal)

== ENCOUNTER → 2019-03-20 | Outpatient (CLI) | payer MEDICARE, BC ==
--- NOTE | 2019-03-20 19:05 | REP ---
The PA and lateral chest: Comparison is 05/05/2016. The lung mello are clear. The cardiac size is normal. The danial, mediastinum, and skeletal structures are unremarkable. Impression: Negative PA and lateral chest. There is no interval change. Electronically Signed by Kalia Jefferson MD 03/20/2019 06:56 P
== END ==
LOC: M ADAMS 16:53
PROVIDERS: ATTEND Registered Nurse
DX: R05 Cough (principal)

== ENCOUNTER 2019-04-02 06:04 | Inpatient (IN) | payer MEDICARE, BC ==
[~2019-04-02] VITALS: Ht 165.1 cm; Wt 113.1 kg
[2019-04-02] MEDS ORDERED: CRES10TA PO (06:14)
[2019-04-02] MEDS ORDERED: DORZ2SOL20 OS (06:14)
[2019-04-02 06:44] LABS: BASO % 0.5 % (0.0-1.0); EOS # 0.1 10^3/uL (0.0-0.5); EOS % 1.5 % (0.0-3.0); HEMATOCRIT 33.7 % (36.0-47.0); HEMOGLOBIN 10.7 g/dl (12.0-15.5); LYMPH # 2.3 10^3/uL (1.5-5.0); LYMPH % 28.4 % (24.0-44.0); MEAN CORPUSCULAR HEMOGLOBIN 31.4 pg (27.0-33.0); MEAN CORPUSCULAR HGB CONC 31.8 g/dl (32.0-36.5); MEAN CORPUSCULAR VOLUME 98.8 fl (80.0-96.0); MONO # 0.6 10^3/uL (0.0-0.8); MONO % 7.8 % (0.0-5.0); NEUTROPHILS # 4.9 10^3/uL (1.5-8.5); NEUTROPHILS % 60.9 % (36.0-66.0); PLATELET COUNT, AUTOMATED 390 10^3/uL (150-450); RED BLOOD COUNT 3.41 10^6/uL (4.00-5.40)
[2019-04-02] MEDS ORDERED: dexameTHASONE 20 MG/5 ML VIAL (J1100) IV ONE (06:45)
[2019-04-02] MEDS: IPRATROPIUM 0.5MG/ALBUTEROL 2.5MG INH SOL UD 3ML (DUONEB)(J7620) NEB SCH ×2 (06:49→07:09)
[2019-04-02 07:10] LABS: ABG BASE EXCESS -3.7 (-2.0-2.0); ABG HCO3 20.6 MEQ/L (22.0-26.0); ABG O2 SATURATION 94.5 % (95.0-99.0); ABG PARTIAL PRESSURE CO2 34.8 mmHg (35.0-45.0); ABG PARTIAL PRESSURE O2 72.6 mmHg (75.0-100.0); ABG STANDARD HCO3 21.3 MEQ/L (22.0-26.0); ABG TOTAL CO2 21.7 MEQ/L (23.0-31.0); ABG pH (ARTERIAL) 7.391 UNITS (7.350-7.450)
[2019-04-02 07:18] LABS: BLOOD UREA NITROGEN 22 MG/DL (7-18); CALCIUM LEVEL 9.1 MG/DL (8.8-10.2); CARBON DIOXIDE LEVEL 27 MEQ/L (21-32); CHLORIDE LEVEL 109 MEQ/L (98-107); CK-MB VALUE MASS 1.9 NG/ML (<3.6); CPK CREATINE PHOSPHOKINASE 271 U/L (26-192); CREATININE FOR GFR 0.79 MG/DL (0.55-1.30); GLOMERULAR FILTRATION RATE > 60.0 (>45); GLUCOSE, FASTING 135 MG/DL (70-100); NT-PRO BNP 145 PG/ML (<125); POTASSIUM SERUM 4.4 MEQ/L (3.5-5.1); SODIUM LEVEL 143 MEQ/L (136-145); TROPONIN I < 0.02 NG/ML (< 0.10)
[2019-04-02 07:24] LABS: INFLUENZA A AMPLIFICATION NEGATIVE (NEGATIVE); INFLUENZA B AMPLIFICATION NEGATIVE (NEGATIVE)
--- NOTE | 2019-04-02 07:47 | REP ---
Portable chest, 06:37 a.m., single AP view the patient upright: Comparison is the portion of the chest of 06/19/2018. There is mild elevation of the right hemidiaphragm, unchanged. The lung mello are clear. The cardiac size is upper normal. The danial, mediastinum, and skeletal structures are unremarkable. Impression: There are no acute cardiopulmonary findings. Electronically Signed by Kalia Jefferson MD 04/02/2019 07:39 A
[2019-04-02] MEDS ORDERED: ISOVUE-370 76% 100ML VIAL (Q9967) As Ordered ONE (09:03)
--- NOTE | 2019-04-02 09:38 | REP ---
CT of the chest with IV contrast, CT pulmonary angiography: Comparison is 06/19/2018. There are no emboli in the pulmonary trunk or central pulmonary arteries. There are emboli in the lobar arteries of the right middle lobe and right lower lobe. The there are no infiltrates. There are no pleural effusions. There are no lung masses or nodules. The thoracic aorta is unremarkable. Cardiac size is upper normal. There is no pericardial effusion. There is no mediastinal, hilar or axillary adenopathy. The visualized upper abdominal contents are unremarkable. Impression: There are pulmonary emboli in the lobar arteries of the right middle lobe and right lower lobe. Electronically Signed by Kalia Jefferson MD 04/02/2019 09:29 A
[2019-04-02] MEDS ORDERED: ENOXAPARIN 120 MG/0.8 ML SYR (J1650) SC ONE (12:00)
[2019-04-02 12:30] LABS: INR 1.11; PROTHROMBIN TIME 14.1 SECONDS (11.8-14.0)
[2019-04-02 12:31] LABS: PARTIAL THROMBOPLASTIN TIME 28.8 SECONDS (25.0-38.4)
[2019-04-02] MEDS ORDERED: ROSU5TAB5 PO (12:37)
[2019-04-02] MEDS ORDERED: VITA50005 PO (12:37)
[2019-04-02] MEDS ORDERED: PROAAER10 INH (12:39)
[2019-04-02] MEDS ORDERED: TESS100C PO (12:39)
[2019-04-02] MEDS ORDERED: GNPLIQ60 PO (12:43)
[2019-04-02] MEDS ORDERED: DEXTROSE 50% 50 ML SYRINGE IV PRN (13:45)
[2019-04-02] MEDS ORDERED: GLUCOSE 4 GM CHEW TABLET PO PRN (13:45)
[2019-04-02] MEDS ORDERED: GLUCAGON FOR INJ 1 MG VIAL (J1610) SC PRN (13:45)
[2019-04-02] MEDS ORDERED: METF-791 PO (13:56)
[2019-04-02] MEDS ORDERED: TIMO0.5S3 OU (13:56)
[2019-04-02 14:24] VITALS: BP 138/78
[2019-04-02] MEDS ORDERED: SLF 3 ML SYR IV PRN ×2 (15:00)
[2019-04-02] MEDS ORDERED: LATA0.0015 OU (15:30)
[2019-04-02] MEDS ORDERED: METO50TA7 PO (15:50)
[2019-04-02 16:00] VITALS: BP 156/64
[2019-04-02] MEDS: HumaLOG INSULIN (NovoLOG) PER UNIT SC SCH ×2 (16:48→20:22)
--- NOTE | 2019-04-02 17:32 | HPEPDOC ---
General Date of Admission Apr 02, 2019 at 13:37 Date of Service: Apr 02, 2019 Chief Complaint The patient is a 68-year-old female who presented to the emergency room complaints of shortness of breath History of Present Illness Patient is a 68-year-old female with a PMHx of Polycythemia Rubra Vera (on Jakafi), HTN, CAD [place] 05[place]), DLP, DM2, ELENA on CPAP, Gout, Neuropathy, Vitamin D deficiency , Glaucoma who presented to the emergency room with worsening shortness of breath over the last 3-4 days. Patient reports that over the course of the month. Shes been expressing cough that she describes as productive with white sputum. She notes that over this month. Shes been evaluated by urgent care 5 times. She was told that she may have bronchitis and was given prednisone for 5 days as well as several different antibiotics. Over the last 3-4 days. She has noted worsening shortness of breath that is more pronounced when she exerts herself. Patient had denied any palpitations, but did report some right upper chest pain that was more pronounced with coughing. She described the pain as a sharp, 8/10 when she coughs and completely resolves when she rests. Patient has denied any nausea, vomiting, abdominal pain, constipation, diarrhea, or urinary discomfort. She denies any recent fevers but does report having chills at home. Has reported that she was negative at urgent care and has received a flu shot this year. Patient has reported a slight weight increase of 6 pounds. Denies any change in her appetite. . She has reported that her motility has decreased over the course of 1 month. Home Medications Scheduled Allopurinol (Allopurinol) 100 Mg Tab, 100 MG PO DAILY, (Reported) Ascorbic Acid (Vitamin C) 500 Mg Capsule, 500 MG PO DAILY, (Reported) Aspirin (Aspirin) 81 Mg Tab.chew, 81 MG PO DAILY, (Reported) Dorzolamide HCl/Pf (Dorzolamide 2% Eye Drop) 10 Ml Drops, 1 DROP OS BID, (Reported) Enalapril Maleate (Enalapril Maleate) 20 Mg Tab, 20 MG PO QHS, (Reported) Enalapril Maleate (Enalapril Maleate) 10 Mg Tablet, 10 MG PO DAILY, (Reported) Ergocalciferol (Vitamin D2) (Vitamin D2) 50,000 Units Cap, 50,000 UNITS PO QWEEK, (Reported) MONDAY Ezetimibe (Zetia) 10 Mg Tablet, 10 MG PO QHS, (Reported) Latanoprost/Pf (Latanoprost 0.005% Eye Drop) 7.5 Ml Drops, 1 DROP OU QHS, (Reported) Magnesium Oxide (Magnesium) 400 Mg Cap, 400 MG PO DAILY, (Reported) Metformin HCl (Metformin HCl ER) 500 Mg Tab.er.24h, 500 MG PO DAILY, (Reported) Metoprolol Tartrate (Metoprolol Tartrate) 50 Mg Tablet, 50 MG PO BID, (Reported) Rosuvastatin Calcium (Rosuvastatin Calcium) 5 Mg Tablet, 5 MG PO DAILY, (Reported) Ruxolitinib Phosphate (Jakafi) 20 Mg Tablet, 25 MG PO BID, (Reported) Timolol Maleate (Timoptic-Xe) 0.5% Arlen.gel, 1 DROP OU QAM, (Reported) Scheduled PRN Albuterol Sulfate (Proair Hfa) 8.5 Gm Hfa.aer.ad, 2 PUFF INH Q4H PRN for SHORTNESS OF BREATH, (Reported) Benzonatate (Tessalon Perle) 100 Mg Capsule, 100 MG PO TID PRN for COUGH, (Reported) Dm/Acetaminophen/Doxylamine (Night Time Cold-Flu Liquid) 355 Ml Liquid, 1 DOSE PO QHS PRN for COLD SYMPTOMS, (Reported) Allergies Coded Allergies: amlodipine (Verified Allergy, Severe, SEVERE EDEMA, 06/19/18) thimerosal (Verified Allergy, Unknown, REACTION TO PERSERVATIVE IN EYES DROPS,FLU INJECTIOS, 06/19/18) ropinirole (Verified Adverse Reaction, Intermediate, PASSED OUT, N/V, DIZZY, DISORIENTED, 06/19/18) Past Medical History Medical History Polycythemia Rubra Vera (on Jakafi), HTN, CAD [place] 05[place]), DLP, DM2, ELENA on CPAP, Gout, Neuropathy, Vitamin D deficiency, Glaucoma Surgical History Abdominal hysterectomy 1984 Bilateral salpingo-oophorectomy 2003 Cholecystectomy 2005 Left foot surgery with plate and screw placement Left knee arthroplasty 2017 Right carpal tunnel release, 2003 Left carpal tunnel release 2018 Family History - Father with a history of coronary artery disease - Mother with a history of diabetes and osteoarthritis Social History - Denies the use of alcohol, tobacco or illicit drugs - Denies recent travel or sick contacts - Lives with Review of Systems Other systems 10 point review of systems complete, all negative otherwise stated in HPI Vital Signs - Vitals: BP 156/64, HR 82, RR 18, Sat 91%RA, Temp 97.7F - General: Lying in bed, No acute distress, Speaking in full sentences, AAOx3 - HEENT: NC, AT, PERRLA, EOMI - CVS: RRR, +S1S2 - Lungs: Fair air entry bilaterally, No appreciable wheezing / rales / rhonchi - Abdomen: Soft, Non-distended, Non-tender - Extremities: No lower extremity edema, No calf tenderness - Neuro: No focal motor or sensory deficit - Skin: No visible rashes Laboratory Data Labs 24H Laboratory Tests 2 04/02/19 06:33: Immature Granulocyte % (Auto) 0.9, Neutrophils (%) (Auto) 60.9, Lymphocytes (%) (Auto) 28.4, Monocytes (%) (Auto) 7.8H, Eosinophils (%) (Auto) 1.5, Basophils (%) (Auto) 0.5, Neutrophils # (Auto) 4.9, Lymphocytes # (Auto) 2.3, Monocytes # (Auto) 0.6, Eosinophils # (Auto) 0.1, Basophils # (Auto) 0.0, Nucleated Red Blood Cells % (auto) 0.0, Anion Gap 7L, Glomerular Filtration Rate > 60.0, Calcium Level 9.1, Total Creatine Kinase 271H, Creatine Kinase MB 1.9, Creatine Kinase MB Relative Index 0.70, Troponin I < 0.02, HN-Ffk-B-Type Natriuretic Peptide 145H 04/02/19 06:47: Blood Gas Bicarbonate Standard 21.3L, Arterial Blood pH 7.391, Arterial Blood Partial Pressure CO2 34.8L, Arterial Blood Partial Pressure O2 72.6L, Arterial Blood Total CO2 21.7L, Arterial Blood HCO3 20.6L, Arterial Blood Base Excess - 3.7L, Arterial Blood Oxygen Saturation 94.5L, Influenza Type A (RT-PCR) NEGATIVE, Influenza Type B (RT-PCR) NEGATIVE 04/02/19 12:10: Prothrombin Time 14.1H, Prothromb Time International Ratio 1.11, Activated Partial Thromboplast Time 28.8 04/02/19 16:26: Bedside Glucose (Misc Panel) 246H CBC/BMP Laboratory Tests 04/02/19 06:33 Microbiology Microbiology 04/02/19 Blood Culture, Received Pending 04/02/19 Blood Culture, Received Pending Plan / VTE VTE Prophylaxis Ordered?: Yes Plan Plan Shortness of breath - likely 2/2 acute pulmonary embolism - Presented to the emergency room after experiencing worsening short of breath over the course of a month - Physical without any adventitious lung sounds - Hemodynamically stable and afebrile - Lab work without any leukocytosis; No troponin elevation - CXR 04/02: There are no acute cardiopulmonary findings. - CTA chest 04/02: There are pulmonary emboli in the lobar arteries of the right middle lobe and right lower lobe. - Patient has received a dose of Lovenox in the emergency room - Will check ECHO and Troponin trend - c/w Telemetry monitoring - Case has been discussed with deputy sheriff, Dr. Lopez; will be on consultation - Will continue with Smita Macrocytic anemia - Hg appears to be at similar range since 09/2016 - Will continue to monitor while on anticoagulation Polycythemia Rubra Vera - c/w Jakafi - Hematology will be on consultation HTN - BP remains well controlled - c/w Metoprolol and Enalapril with holding parameters CAD [place] stent [place] 05[place]) DLP - c/w Rosuvastatin and Ezetimibe DM2 - c/w ISS ELENA on CPAP - May allow home CPAP use while inpatient Gout - c/w Allopurinol Neuropathy - Currently not on any medications for this Vitamin D deficiency - Will hold supplementation until discharge Glaucoma - c/w Eye drops from outpatient DVT prophylaxis - Will start ANANYA Meredith MD Apr 02, 2019 17:32
[2019-04-02] MEDS ORDERED: NS 1,000 ML IV SCH (18:15)
[2019-04-02 19:02] LABS: CK-MB VALUE MASS 2.1 NG/ML (<3.6); MB/CK RELATIVE INDEX 0.72 (< OR =4); TROPONIN I 0.04 NG/ML (< 0.10)
--- NOTE | 2019-04-02 19:36 | MEDONCENPD ---
Date/Time of Encounter Date of Encounter: Apr 02, 2019 Encounter Chief Complaint The patient is a 68-year-old female who presented to the emergency room complaints of shortness of breath Heme consulted for h/o P Vera and new PE. History of Present Illness Patient is a 68-year-old female with a PMHx of Polycythemia Rubra Vera (on Jakafi), HTN, CAD s/p stent ([place] 05/2018, was on brillianta x 3 months then d/c'd reason unknown to patient, thinks she went on a study but is unclear of details), who presented to the ER with 3-4 weeks of SOB and Rt mid to lower CP x 2-3 weeks, increased w/ coughing and completely resolves when she rests. Noted increase in SOB over alast 3-4 days. In O/P setting for working diagnosis of bronchitos per patient, has tried prednisone and different antibiotics. On arr ival had CTA chets which revealed RML and RLL PE- s/p one dose of lovenox. Denies any recent travel, denies Seen in room, resting in bed, talking on phone. SOB better since arrival but still persistent on walking OOB. Denies any nausea, vomiting, abdominal pain, constipation, diarrhea, or urinary discomfort. She denies any recent fevers but does report having chills at home. Has reported that she was negative at urgent care and has received a flu shot this year. Denies any chills since arrival. Home Medications Scheduled Allopurinol (Allopurinol) 100 Mg Tab, 100 MG PO DAILY, (Reported) Ascorbic Acid (Vitamin C) 500 Mg Capsule, 500 MG PO DAILY, (Reported) Aspirin (Aspirin) 81 Mg Tab.chew, 81 MG PO DAILY, (Reported) Dorzolamide HCl/Pf (Dorzolamide 2% Eye Drop) 10 Ml Drops, 1 DROP OS BID, (Reported) Enalapril Maleate (Enalapril Maleate) 20 Mg Tab, 20 MG PO QHS, (Reported) Enalapril Maleate (Enalapril Maleate) 10 Mg Tablet, 10 MG PO DAILY, (Reported) Ergocalciferol (Vitamin D2) (Vitamin D2) 50,000 Units Cap, 50,000 UNITS PO QWEEK, (Reported) MONDAY Ezetimibe (Zetia) 10 Mg Tablet, 10 MG PO QHS, (Reported) Latanoprost/Pf (Latanoprost 0.005% Eye Drop) 7.5 Ml Drops, 1 DROP OU QHS, (Reported) Magnesium Oxide (Magnesium) 400 Mg Cap, 400 MG PO DAILY, (Reported) Metformin HCl (Metformin HCl ER) 500 Mg Tab.er.24h, 500 MG PO DAILY, (Reported) Metoprolol Tartrate (Metoprolol Tartrate) 50 Mg Tablet, 50 MG PO BID, (Reported) Rosuvastatin Calcium (Rosuvastatin Calcium) 5 Mg Tablet, 5 MG PO DAILY, (Reported) Ruxolitinib Phosphate (Jakafi) 20 Mg Tablet, 25 MG PO BID, (Reported) Timolol Maleate (Timoptic-Xe) 0.5% Arlen.gel, 1 DROP OU QAM, (Reported) Scheduled PRN Albuterol Sulfate (Proair Hfa) 8.5 Gm Hfa.aer.ad, 2 PUFF INH Q4H PRN for SHORTNESS OF BREATH, (Reported) Benzonatate (Tessalon Perle) 100 Mg Capsule, 100 MG PO TID PRN for COUGH, (Reported) Dm/Acetaminophen/Doxylamine (Night Time Cold-Flu Liquid) 355 Ml Liquid, 1 DOSE PO QHS PRN for COLD SYMPTOMS, (Reported) Allergies Coded Allergies: amlodipine (Verified Allergy, Severe, SEVERE EDEMA, 06/19/18) thimerosal (Verified Allergy, Unknown, REACTION TO PERSERVATIVE IN EYES DROPS,FLU INJECTIOS, 06/19/18) ropinirole (Verified Adverse Reaction, Intermediate, PASSED OUT, N/V, DIZZY, DISORIENTED, 06/19/18) Past Medical History Medical History Polycythemia Rubra Vera (on Jakafi) HTN, CAD s/p stent ([place] 05/2018) DLP, DM2 ELENA on CPAP Gout Neuropathy Vitamin D deficiency Glaucoma Surgical History Abdominal hysterectomy 1985 Bilateral salpingo-oophorectomy 2003 Cholecystectomy 2005 Left foot surgery with plate and screw placement Left knee arthroplasty 2017 Right carpal tunnel release, 2004 Left carpal tunnel release 2018 Family History - Father with a history of coronary artery disease - Mother with a history of diabetes and osteoarthritis - No malignancies or blood dyscrsias reported by patient Social History - Denies the use of alcohol, tobacco or illicit drugs - Denies recent travel or sick contacts - Lives with Review of Systems Constitutional: No fevers, chills, night sweats, fatigue, malaise or weight loss Cardio-pulmonary: No chest pain, SOB, palpitations, dizziness. No cough. No hemoptysis Gastrointestinal: No pain, nausea, vomiting, constipation or diarrhea. No hematemesis, melena or hematochezia Genito-Urinary: No dysuria, hematuria, incontinence, frequency or urgency Musculoskeletal: No bony, muscle or joint aches or pains CHAIRMAN & CEO: No tingling, weakness, numbness. No headaches, dizziness, seizures, speech or visual disturbances. All other systems are negative unless otherwise specified in HPI. Vital Signs - Vitals: BP 156/64, HR 82, RR 18, Sat 91%RA, Temp 97.7F Physical Exam: HEENT: Oral mucosa- pink and moist, no conjunctival pallor, sclera anicteric bilaterally LUNGS: Clear to auscultation b/l, resonant to percussion b/l HEART: Regular rhythm, no murmurs, no S3/S4, rubs ABDOMEN: Soft, no-tender, BS- normoactive, no hepato-splenomegaly EXTREMITIES: No edema bilaterally. Calves non-tender bilaterally SKIN/NAILS: No nail changes. No petechiae/ecchymosis or other skin changes MUSCULO-SKELETAL: Spine non-tender to palpation. Laboratory Data Labs 24H Laboratory Tests 2 04/02/19 06:33: Immature Granulocyte % (Auto) 0.9, Neutrophils (%) (Auto) 60.9, Lymphocytes (%) (Auto) 28.4, Monocytes (%) (Auto) 7.8H, Eosinophils (%) (Auto) 1.5, Basophils (%) (Auto) 0.5, Neutrophils # (Auto) 4.9, Lymphocytes # (Auto) 2.3, Monocytes # (Auto) 0.6, Eosinophils # (Auto) 0.1, Basophils # (Auto) 0.0, Nucleated Red Blood Cells % (auto) 0.0, Anion Gap 7L, Glomerular Filtration Rate > 60.0, Calcium Level 9.1, Total Creatine Kinase 271H, Creatine Kinase MB 1.9, Creatine Kinase MB Relative Index 0.70, Troponin I < 0.02, ZN-Ple-M-Type Natriuretic Peptide 145H 04/02/19 06:47: Blood Gas Bicarbonate Standard 21.3L, Arterial Blood pH 7.391, Arterial Blood Partial Pressure CO2 34.8L, Arterial Blood Partial Pressure O2 72.6L, Arterial Blood Total CO2 21.7L, Arterial Blood HCO3 20.6L, Arterial Blood Base Excess - 3.7L, Arterial Blood Oxygen Saturation 94.5L, Influenza Type A (RT-PCR) NEGATIVE, Influenza Type B (RT-PCR) NEGATIVE 04/02/19 12:10: Prothrombin Time 14.1H, Prothromb Time International Ratio 1.11, Activated Partial Thromboplast Time 28.8 04/02/19 16:26: Bedside Glucose (Misc Panel) 246H CBC/BMP Laboratory Tests 04/02/19 06:33 Plan Plan 1. Right acute pulmonary embolism (RML, RLL) in setting P. Vera (hypercoagulable state) - Hemodynamically stable and afebrile - D/w ER MD- check ECHO for Right heart strain - D/w Dr. Foss- re: 02 therapy, Pulm consult - s/p 1 dose of lovenox in ER, then ordered Eliquis per d/w Dr. Nelson - on Telemetry monitoring 2. Macrocytic anemia - anemia noted since Jakafi per patient, hgb at 10 range which is baseline per patient - with current mild macrocytosis, please check b12/folate - replenish any low stores, please check TSH 3. Polycythemia Rubra Vera- JA 2 +, low epo, splenomegaly- d'sed 2013 per patient at [facility] - 2014- started Jakafi fro painful splenomegaly which symptomatically resolved - may continue Jakafi - last phlebotomy 2014- no phlebotomy indictaed with current anemia- monitor counts Patient intends to f/u w/ her primary Hematology at [place]. Dr. Adkins covering I/P heme service tomorrow. All of the above was relayed to the patient who was given an opportunity to ask questions that were answered to satisfaction. The patient voiced an understanding and agreed to proceed. Thank you for asking us to see this patient in consultation. It is always a privilege and pleasure to participate in the care of your patients. ALEX LIAO MD Apr 02, 2019 19:36
[2019-04-02 20:00] VITALS: BP 178/76
[2019-04-02] MEDS: APIXABAN 5 MG TAB (ELIQUIS) PO SCH (20:29)
[2019-04-02] MEDS: TIMOLOL XE GFS 0.5% OPHTH 5 ML OU SCH (20:29)
[2019-04-02] MEDS: METOPROLOL TART 50 MG TAB PO SCH (20:30)
[2019-04-02] MEDS: EZETIMIBE 10 MG TAB (ZETIA) PO SCH (20:30)
[2019-04-02] MEDS: ENALAPRIL MALEATE 10 MG TAB PO SCH (20:30)
[2019-04-02] MEDS: ROSUVASTATIN 10 MG TAB (CRESTOR) PO SCH (20:30)
[2019-04-02] MEDS: SLF 3 ML SYR IV SCH (20:31)
[2019-04-02] MEDS ORDERED: METOPROLOL TART 25 MG TABLET PO SCH (21:00)
[2019-04-02] MEDS ORDERED: SLF 3 ML SYR IV SCH (22:00)
[2019-04-02 23:59] VITALS: BP 166/73
[2019-04-03] MEDS ORDERED: ACETAMINOPHEN TAB 650MG DOSE (2X325MG) PO ONE (00:45)
[2019-04-03 04:00] VITALS: BP 158/80
[2019-04-03] MEDS: SLF 3 ML SYR IV SCH ×3 (05:02→20:23)
[2019-04-03 05:56] LABS: BASO % 0.1 % (0.0-1.0); HEMATOCRIT 31.6 % (36.0-47.0); HEMOGLOBIN 9.8 g/dl (12.0-15.5); LYMPH # 1.3 10^3/uL (1.5-5.0); LYMPH % 11.5 % (24.0-44.0); MEAN CORPUSCULAR HEMOGLOBIN 30.4 pg (27.0-33.0); MEAN CORPUSCULAR VOLUME 98.1 fl (80.0-96.0); MONO # 0.7 10^3/uL (0.0-0.8); MONO % 6.4 % (0.0-5.0); NEUTROPHILS # 9.4 10^3/uL (1.5-8.5); NEUTROPHILS % 81.1 % (36.0-66.0); PLATELET COUNT, AUTOMATED 352 10^3/uL (150-450); RED BLOOD COUNT 3.22 10^6/uL (4.00-5.40); WHITE BLOOD COUNT 11.5 10^3/uL (4.0-10.0)
[2019-04-03 06:23] LABS: BLOOD UREA NITROGEN 18 MG/DL (7-18); CALCIUM LEVEL 8.6 MG/DL (8.8-10.2); CARBON DIOXIDE LEVEL 23 MEQ/L (21-32); CHLORIDE LEVEL 112 MEQ/L (98-107); CREATININE FOR GFR 0.68 MG/DL (0.55-1.30); GLOMERULAR FILTRATION RATE > 60.0 (>45); GLUCOSE, FASTING 170 MG/DL (70-100); MAGNESIUM LEVEL 2.2 MG/DL (1.8-2.4); POTASSIUM SERUM 4.4 MEQ/L (3.5-5.1); SODIUM LEVEL 142 MEQ/L (136-145)
[2019-04-03 08:00] VITALS: BP 141/86
[2019-04-03] MEDS: APIXABAN 5 MG TAB (ELIQUIS) PO SCH ×2 (08:37→20:21)
[2019-04-03] MEDS: ASCORBIC ACID 500 MG TAB PO SCH (08:37)
[2019-04-03] MEDS: ENALAPRIL MALEATE 10 MG TAB PO SCH ×2 (08:37→20:22)
[2019-04-03] MEDS: allopurinoL 100 MG TAB PO SCH (08:37)
[2019-04-03] MEDS: METOPROLOL TART 50 MG TAB PO SCH ×2 (08:37→20:22)
[2019-04-03] MEDS: [UNRECOGNIZED DRUG - OTHER] PO SCH ×2 (08:37→20:22)
[2019-04-03] MEDS: HumaLOG INSULIN (NovoLOG) PER UNIT SC SCH ×4 (08:38→21:00)
[2019-04-03] MEDS ORDERED: TIMOLOL MALEATE 0.25% OPHTH SOLN 5 ML OU SCH (09:00)
[2019-04-03] MEDS ORDERED: metFORMIN (GLUCOPHAGE) 500 MG TAB PO SCH (09:00)
[2019-04-03] MEDS: BENZONATATE 100 MG CAP PO PRN ×2 (11:35→20:20)
[2019-04-03] MEDS: LEVALBUTEROL 1.25 MG/0.5 ML CONCENTRATE NEB INH PRN ×2 (11:56→20:29)
[2019-04-03 12:00] VITALS: BP 132/60
[2019-04-03] MEDS ORDERED: ELIQ5TAB PO (12:31)
--- NOTE | 2019-04-03 12:38 | IPNPDOC ---
Text Note Date of Service The patient was seen on 04/03/19. NOTE Subjective: Patient is a 68-year-old female with a PMHx of Polycythemia Rubra Vera (on Jakafi), HTN, CAD s/p stent ([place] 05/2018), DLP, DM2, ELENA on CPAP, Gout, Neuropathy, Vitamin D deficiency, Glaucoma who presented to the emergency room with worsening shortness of breath over the last 3-4 days. Patient. Imaging completed in emergency room the head revealed a pulmonary embolism. Patient was admitted to hospitalist service for further evaluation and treatment. Hematology was called for consultation. Patient was seen and examined at the bedside. Currently patient denies any palpitations. No N/V, abdominal pain, C/D. No dysuria. Reports some pleuritic chest pain on the right. Reports SOB with exertion. Objective: Vitals (See below) General: Lying in bed, no acute distress, comfortable, AAOx3 HEENT: NC, AT CVS: RRR, +S1S2 Lungs: Fair air entry b/l, no wheezing / rhonchi / rales Abdomen: Soft, non-distended, non-tender Extremities: No evidence of edema, - Calf tenderness Assessment and plan: Shortness of breath - likely 2/2 acute pulmonary embolism - Clinically still reporting shortness of breath with ambulation - Patient of her submental oxygen with exertion; although remains hemodyna mically stable and afebrile - CXR 04/02: There are no acute cardiopulmonary findings. - CTA chest 04/02: There are pulmonary emboli in the lobar arteries of the right middle lobe and right lower lobe. - s/p Lovenox x1 dose; - ECHO pending - c/w Telemetry monitoring - Hematology, Dr. Lopez; will be on consultation - c/w Eliquis Macrocytic anemia - Hg appears to be at similar range since 09/2016 - c/w to monitor while on anticoagulation Polycythemia Rubra Vera - c/w Jakafi - Hematology consulted HTN - BP remains well controlled - c/w Metoprolol and Enalapril with holding parameters CAD s/p stent ([place] 05/2018) / DLP - c/w Rosuvastatin and Ezetimibe - s/p ASA DM2 - c/w ISS ELENA on CPAP - May allow home CPAP use while inpatient Gout - c/w Allopurinol Neuropathy - Currently not on any medications for this Vitamin D deficiency - Will hold supplementation until discharge Glaucoma - c/w Eye drops from outpatient DVT prophylaxis - c/w full anticoagulation with Eliquis Disposition: - Anticipate discharge within the next 24-48 hours once patient clears physical therapy VS,Fishbone, I+O VS, Fishbone, I+O Laboratory Tests 04/03/19 05:40 Vital Signs Date Time Temp Pulse Resp B/P (MAP) Pulse Ox O2 Delivery O2 Flow Rate FiO2 04/03/19 08:37 59 158/80 04/03/19 08:04 2.0 04/03/19 08:00 97.6 17 100 Nasal Cannula I&O- Last 24 Hours up to 6 AM 04/03/19 06:00 Intake Total 2760 ml Output Total 1700 ml Balance 1060 ml ANANYA AN MD Apr 03, 2019 12:38
--- NOTE | 2019-04-03 14:48 | ECGEPIP ---
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
[2019-04-03 16:00] VITALS: BP 156/70
[2019-04-03 20:00] VITALS: BP 158/70
[2019-04-03] MEDS: ROSUVASTATIN 10 MG TAB (CRESTOR) PO SCH (20:20)
[2019-04-03] MEDS: EZETIMIBE 10 MG TAB (ZETIA) PO SCH (20:22)
[2019-04-03] MEDS: TIMOLOL XE GFS 0.5% OPHTH 5 ML OU SCH (20:22)
[2019-04-03 23:59] VITALS: BP 161/71
[2019-04-04 04:00] VITALS: BP 152/70
[2019-04-04] MEDS: BENZONATATE 100 MG CAP PO PRN (04:50)
[2019-04-04] MEDS: LEVALBUTEROL 1.25 MG/0.5 ML CONCENTRATE NEB INH PRN (04:50)
[2019-04-04] MEDS: SLF 3 ML SYR IV SCH (04:51)
[2019-04-04 06:05] LABS: BASO % 0.2 % (0.0-1.0); EOS % 0.3 % (0.0-3.0); HEMATOCRIT 30.6 % (36.0-47.0); HEMOGLOBIN 9.5 g/dl (12.0-15.5); LYMPH # 3.3 10^3/uL (1.5-5.0); LYMPH % 31.3 % (24.0-44.0); MONO # 0.7 10^3/uL (0.0-0.8); MONO % 6.4 % (0.0-5.0); NEUTROPHILS # 6.5 10^3/uL (1.5-8.5); PLATELET COUNT, AUTOMATED 353 10^3/uL (150-450); RED BLOOD COUNT 3.06 10^6/uL (4.00-5.40); WHITE BLOOD COUNT 10.6 10^3/uL (4.0-10.0)
[2019-04-04 06:34] LABS: BLOOD UREA NITROGEN 25 MG/DL (7-18); CALCIUM LEVEL 8.8 MG/DL (8.8-10.2); CARBON DIOXIDE LEVEL 26 MEQ/L (21-32); CHLORIDE LEVEL 111 MEQ/L (98-107); CREATININE FOR GFR 0.73 MG/DL (0.55-1.30); GLOMERULAR FILTRATION RATE > 60.0 (>45); GLUCOSE, FASTING 113 MG/DL (70-100); MAGNESIUM LEVEL 2.1 MG/DL (1.8-2.4); SODIUM LEVEL 141 MEQ/L (136-145)
[2019-04-04 08:00] VITALS: BP 134/64
[2019-04-04] MEDS: HumaLOG INSULIN (NovoLOG) PER UNIT SC SCH ×2 (08:51→12:03)
[2019-04-04] MEDS: APIXABAN 5 MG TAB (ELIQUIS) PO SCH (08:52)
[2019-04-04] MEDS: ENALAPRIL MALEATE 10 MG TAB PO SCH (08:53)
[2019-04-04] MEDS: allopurinoL 100 MG TAB PO SCH (08:53)
[2019-04-04] MEDS: ASCORBIC ACID 500 MG TAB PO SCH (08:53)
[2019-04-04] MEDS: [UNRECOGNIZED DRUG - OTHER] PO SCH (08:54)
[2019-04-04 08:58] VITALS: BP 134/64
[2019-04-04] MEDS: METOPROLOL TART 50 MG TAB PO SCH (08:58)
[2019-04-04 12:00] VITALS: BP 150/65
[2019-04-04] MEDS ORDERED: ELIQ5TAB PO (13:49)
[2019-04-04] MEDS ORDERED: PROAAER10 INH (13:52)
--- NOTE | 2019-04-04 16:04 | DS.PDOC ---
Discharge Summary General Date of Admission Apr 02, 2019 at 13:37 Date of Discharge 04/04/2019 Discharge Summary PROCEDURES PERFORMED DURING STAY: [None]. ADMITTING DIAGNOSES: Shortness of breath Right acute pulmonary embolism Macrocytic anemia Polycythemia Rubra Vera HTN DLP DM2 ELENA on CPAP Gout Neuropathy Glaucoma Vitamin D deficiency DISCHARGE DIAGNOSES: Shortness of breath Right acute pulmonary embolism Macrocytic anemia Polycythemia Rubra Vera HTN DLP DM2 ELENA on CPAP Gout Neuropathy Glaucoma Vitamin D deficiency COMPLICATIONS/CHIEF COMPLAINT: Pulmonary Embolism. HISTORY OF PRESENT ILLNESS: Patient is a 68-year-old female with a PMHx of Polycythemia Rubra Vera (on Jakafi), HTN, CAD s/p stent ([place] 05/2018, was on brillianta x 3 months then d/c'd reason unknown to patient, thinks she went on a study but is unclear of details), who presented to the ER with 3-4 weeks of SOB and Rt mid to lower CP x 2-3 weeks, increased w/ coughing and completely resolves when she rests. Noted increase in SOB over alast 3-4 days. In O/P setting for working diagnosis of bronchitos per patient, has tried prednisone and different antibiotics. On arrival had CTA chets which revealed RML and RLL PE- s/p one dose of lovenox. Denies any recent travel, denies Seen in room, resting in bed, talking on phone. SOB better since arrival but still persistent on walking OOB. Denies any nausea, vomiting, abdominal pain, constipation, diarrhea, or urinary discomfort. She denies any recent fevers but does report having chills at home. Has reported that she was negative at urgent care and has received a flu shot this year. Denies any chills since arrival. HOSPITAL COURSE: During hospital stay the following issues addressed Right acute pulmonary embolism (RML, RLL) in setting P. Vera (hypercoagulable state) - Hemodynamically stable and afebrile Patient received treatment with Eliquis Polycythemia Rubra Vera- JA 2 +, low epo, splenomegaly- d'sed 2013 per patient at [facility] - 2015- started Jakafi fro painful splenomegaly which symptomatically resolved - may continue Jakafi - last phlebotomy 2014- no phlebotomy indicated with current anemia- monitor counts Patient intends to f/u w/ her primary Hematology at [facility]. DISCHARGE MEDICATIONS: Please see below. ALLERGIES: Please see below. PHYSICAL EXAMINATION ON DISCHARGE: VITAL SIGNS: Please see below. HEENT: Oral mucosa- pink and moist, no conjunctival pallor, sclera anicteric bilaterally LUNGS: Clear to auscultation b/l, resonant to percussion b/l HEART: Regular rhythm, no murmurs, no S3/S4, rubs ABDOMEN: Soft, no-tender, BS- normoactive, no hepato-splenomegaly EXTREMITIES: No edema bilaterally. Calves non-tender bilaterally SKIN/NAILS: No nail changes. No petechiae/ecchymosis or other skin changes MUSCULO-SKELETAL: Spine non-tender to palpation. LABORATORY DATA: Please see below. IMAGING: CT of the chest with IV contrast, CT pulmonary angiography: Comparison is 06/19/2018. There are no emboli in the pulmonary trunk or central pulmonary arteries. There are emboli in the lobar arteries of the right middle lobe and right lower lobe. The there are no infiltrates. There are no pleural effusions. There are no lung masses or nodules. The thoracic aorta is unremarkable. Cardiac size is upper normal. There is no pericardial effusion. There is no mediastinal, hilar or axillary adenopathy. The visualized upper abdominal contents are unremarkable. Impression: There are pulmonary emboli in the lobar arteries of the right middle lobe and right lower lobe. PROGNOSIS: Favorable ACTIVITY: As tolerated DIET: Regular DISCHARGE PLAN: Home DISPOSITION: Home DISCHARGE INSTRUCTIONS: Follow-up with inspector screen printing and PCP ITEMS TO FOLLOWUP ON ON OUTPATIENT: See above DISCHARGE CONDITION: [Stable]. TIME SPENT ON DISCHARGE: Greater than 20 minutes. Vital Signs/I&Os Vital Signs Date Time Temp Pulse Resp B/P (MAP) Pulse Ox O2 Delivery O2 Flow Rate FiO2 04/04/19 12:00 97.3 63 17 150/65 (93) 93 Room Air 04/03/19 16:00 I&O- Last 24 Hours up to 6 AM 04/04/19 06:00 Intake Total 2650 ml Output Total 2300 ml Balance 350 ml Laboratory Data Labs 24H Laboratory Tests 2 04/03/19 17:10: Bedside Glucose (Misc Panel) 120H 04/03/19 19:54: Bedside Glucose (Misc Panel) 208H 04/04/19 05:37: Immature Granulocyte % (Auto) 0.8, Neutrophils (%) (Auto) 61.0, Lymphocytes (%) (Auto) 31.3, Monocytes (%) (Auto) 6.4H, Eosinophils (%) (Auto) 0.3, Basophils (%) (Auto) 0.2, Neutrophils # (Auto) 6.5, Lymphocytes # (Auto) 3.3, Monocytes # (Auto) 0.7, Eosinophils # (Auto) 0.0, Basophils # (Auto) 0.0, Nucleated Red Blood Cells % (auto) 0.2H, Anion Gap 4L, Glomerular Filtration Rate > 60.0, Calcium Level 8.8, Magnesium Level 2.1 04/04/19 11:45: Bedside Glucose (Misc Panel) 117H CBC/BMP Laboratory Tests 04/04/19 05:37 FSBS Laboratory Tests Test 04/03/19 17:10 04/03/19 19:54 04/04/19 11:45 Range/Units Bedside Glucose (Misc Panel) 120 208 117 80-115 MG/DL Microbiology Microbiology 04/02/19 Blood Culture - Preliminary, Resulted No Growth after 48 hours. All Specime... 04/02/19 Blood Culture - Preliminary, Resulted No Growth after 48 hours. All Specime... Discharge Medications Scheduled Allopurinol (Allopurinol) 100 Mg Tab, 100 MG PO DAILY, (Reported) Apixaban (Eliquis) 5 Mg Tablet, 1 TAB PO BID Continue with 10mg PO BID until 04/08/2019; then continue with 5 PO BID Apixaban (Eliquis) 5 Mg Tablet, 10 MG PO BID Ascorbic Acid (Vitamin C) 500 Mg Capsule, 500 MG PO DAILY, (Reported) Aspirin (Aspirin) 81 Mg Tab.chew, 81 MG PO DAILY, (Reported) Dorzolamide HCl/Pf (Dorzolamide 2% Eye Drop) 10 Ml Drops, 1 DROP OS BID, (Reported) Enalapril Maleate (Enalapril Maleate) 20 Mg Tab, 20 MG PO QHS, (Reported) Enalapril Maleate (Enalapril Maleate) 10 Mg Tablet, 10 MG PO DAILY, (Reported) Ergocalciferol (Vitamin D2) (Vitamin D2) 50,000 Units Cap, 50,000 UNITS PO QWEEK, (Reported) MONDAY Ezetimibe (Zetia) 10 Mg Tablet, 10 MG PO QHS, (Reported) Latanoprost/Pf (Latanoprost 0.005% Eye Drop) 7.5 Ml Drops, 1 DROP OU QHS, (Reported) Magnesium Oxide (Magnesium) 400 Mg Cap, 400 MG PO DAILY, (Reported) Metformin HCl (Metformin HCl ER) 500 Mg Tab.er.24h, 500 MG PO DAILY, (Reported) Metoprolol Tartrate (Metoprolol Tartrate) 50 Mg Tablet, 50 MG PO BID, (Reported) Rosuvastatin Calcium (Rosuvastatin Calcium) 5 Mg Tablet, 5 MG PO DAILY, (Reported) Ruxolitinib Phosphate (Jakafi) 20 Mg Tablet, 25 MG PO BID, (Reported) Timolol Maleate (Timoptic-Xe) 0.5% Arlen.gel, 1 DROP OU QAM, (Reported) Scheduled PRN Albuterol Sulfate (Proair Hfa) 8.5 Gm Hfa.aer.ad, 2 PUFF INH Q4H PRN for SHORTNESS OF BREATH Benzonatate (Tessalon Perle) 100 Mg Capsule, 100 MG PO TID PRN for COUGH, (Reported) Dm/Acetaminophen/Doxylamine (Night Time Cold-Flu Liquid) 355 Ml Liquid, 1 DOSE PO QHS PRN for COLD SYMPTOMS, (Reported) Allergies Coded Allergies: amlodipine (Verified Allergy, Severe, SEVERE EDEMA, 06/19/18) thimerosal (Verified Allergy, Unknown, REACTION TO PERSERVATIVE IN EYES DROPS,FLU INJECTIOS, 06/19/18) ropinirole (Verified Adverse Reaction, Intermediate, PASSED OUT, N/V, DIZZY, DISORIENTED, 06/19/18) KIEL DOSS DO Apr 04, 2019 16:03
--- NOTE | 2019-04-04 22:50 | ECHO ---
DATE OF PROCEDURE: 04/04/2019 REFERRING PHYSICIAN: Dr. Ronda Nelson INDICATION: Chest pain, other. HEIGHT: 165 cm WEIGHT: 111 kg 2D MEASUREMENTS: Left atrium: 4.1 cm Ventricular septum: 1.17 cm Posterior wall: 1.16 cm Left ventricle diastole: 4.7 cm Aortic root: 3.0 cm Aortic annulus: 2.1 cm Inferior vena cava: 2.4 cm with less than 50% respiration variation. DOPPLER MEASUREMENTS: No aortic stenosis. No aortic regurgitation. Aortic valve velocity: 132 cm/s LVOT velocity: 98.5 cm/s LVOT VTI: 24.3 cm Very mild mitral regurgitation. Mitral E velocity: 120 cm/s Mitral A velocity: 75.5 cm/s Mitral deceleration time: 148 ms Very mild tricuspid regurgitation. Estimated right ventricle systolic pressure: 52 mmHg assuming a right pressure of 15 mmHg. MITRAL ANNULAR TISSUE DOPPLER: E prime septal: 8.6 cm/s E prime lateral: 7.0 cm/s DESCRIPTION: Rhythm was sinus with occasional premature ventricular contractions (PVCs). This was a 2D, M-mode, color flow Doppler and pulse wave Doppler examination and included mitral annular tissue Doppler. Image quality was adequate. CONCLUSIONS: 1. Normal left ventricle internal dimensions and wall thickness. Hyperdynamic left ventricular (LV) systolic function. Left ventricular ejection fraction (LVEF) 75-80% by visual estimate. Normal LV diastolic function. 2. Suggestive of moderate elevation of estimated right ventricle systolic pressure. Normal right ventricle size and systolic function. 3. Inferior vena cava plethora. Suggestive of elevated central venous pressure (15 mmHg). 4. No pericardial effusion. 5. Mild left atrial dilatation. 6. Mild aortic valve sclerosis of 3-cusp aortic valve.
[2019-04-09] MEDS ORDERED: APIXABAN 5 MG TAB (ELIQUIS) PO SCH (21:00)
== END 2019-04-04 16:15 | disposition home or self-care (01) | DRG 176 ==
LOC: M ED 06:04 → M ED INP 13:37 → ENRESERVTM 13:51 → ENRESERVDT 13:51 → M PCU 14:23
PROVIDERS: ADMIT Internal Medicine; ATTEND Internal Medicine
DX: I26.99 Other pulmonary embolism without acute cor pulmonale (principal); Z68.41 Body mass index [BMI] 40.0-44.9, adult; D45 Polycythemia vera; I10 Essential (primary) hypertension; I25.10 Atherosclerotic heart disease of native coronary artery without angina pectoris; Z95.1 Presence of aortocoronary bypass graft; I25.2 Old myocardial infarction; E78.5 Hyperlipidemia, unspecified; E11.40 Type 2 diabetes mellitus with diabetic neuropathy, unspecified; G47.33 Obstructive sleep apnea (adult) (pediatric); M10.9 Gout, unspecified; E55.9 Vitamin D deficiency, unspecified; H40.9 Unspecified glaucoma; Z79.82 Long term (current) use of aspirin; Z79.84 Long term (current) use of oral hypoglycemic drugs; Z88.8 Allergy status to other drugs, medicaments and biological substances; Z90.79 Acquired absence of other genital organ(s); Z90.49 Acquired absence of other specified parts of digestive tract; Z96.652 Presence of left artificial knee joint; Z79.01 Long term (current) use of anticoagulants

== ENCOUNTER → 2019-04-11 | Outpatient (REF) | payer MEDICARE, BC ==
[~2019-04-11] MED LIST changes: +CRES10TA PO; +DORZ2SOL20 OS; +ELIQ5TAB PO; +GNPLIQ60 PO; +LATA0.0015 OU; +METF-791 PO; +METO50TA7 PO; +PROAAER10 INH; +ROSU5TAB5 PO; +TESS100C PO; +TIMO0.5S3 OU; +VITA50005 PO
== END ==
LOC: M LAB REF 16:30
PROVIDERS: ATTEND Family Medicine
DX: R30.0 Dysuria (principal)

== ENCOUNTER → 2019-05-07 | Outpatient (REF) | payer MEDICARE, BC | LOC: M LAB REF 12:18 | PROVIDERS: ATTEND Family Medicine | DX: R30.0 Dysuria (principal) ==

== ENCOUNTER → 2019-08-23 | Outpatient (CLI) | payer MEDICARE, BC ==
[~2019-08-23] MED LIST changes: +HYDR500C3 PO; -METF-791 PO; +METF-838 PO
--- NOTE | 2019-08-23 16:37 | REP ---
REASON: Pain in the foot. PRIORS: None. Patient status post fusion of the 1st carpometacarpal joint. Internal fixation plate and multiple screws are noted. There are degenerative changes seen throughout the foot. There is dorsal soft tissue swelling about the midfoot, etiology uncertain. IMPRESSION: Chronic changes and other findings as described above. Electronically Signed by Jacob Waggoner DO 08/23/2019 04:40 P
== END ==
LOC: M ADAMS 11:10
PROVIDERS: ATTEND Nurse Practitioner Family
DX: S90.32XA Contusion of left foot, initial encounter (principal); Y92.9 Unspecified place or not applicable; Y93.9 Activity, unspecified; Y99.9 Unspecified external cause status

== ENCOUNTER → 2019-08-30 | Outpatient (REF) | payer MEDICARE, BC ==
[~2019-08-30] MED LIST changes: +AUGM875T28 PO; +DORZ2SOL4 OS; +ENAL-36 PO; -ENAL10TA2 PO; -ENAL20TA PO; +ENAL20TA11 PO; +HYDR-3715 PO; +NITR0.4S14 SL; +XALA0.007 OU; +[UNRECOGNIZED DRUG - CODE] PO
[2019-08-30 17:00] LABS: BASO % 0.5 % (0.0-1.0); EOS # 0.1 10^3/uL (0.0-0.5); EOS % 0.9 % (0.0-3.0); HEMATOCRIT 33.3 % (36.0-47.0); HEMOGLOBIN 10.6 g/dl (12.0-15.5); LYMPH % 30.8 % (24.0-44.0); MEAN CORPUSCULAR HGB CONC 31.8 g/dl (32.0-36.5); MEAN CORPUSCULAR VOLUME 106.7 fl (80.0-96.0); MONO # 0.5 10^3/uL (0.0-0.8); MONO % 7.5 % (0.0-5.0); NEUTROPHILS # 3.9 10^3/uL (1.5-8.5); NEUTROPHILS % 59.8 % (36.0-66.0); PLATELET COUNT, AUTOMATED 438 10^3/uL (150-450); RED BLOOD COUNT 3.12 10^6/uL (4.00-5.40); WHITE BLOOD COUNT 6.5 10^3/uL (4.0-10.0)
[2019-08-30 17:28] LABS: ALT/SGPT 27 U/L (12-78); BILIRUBIN,TOTAL 0.4 MG/DL (0.2-1.0); BLOOD UREA NITROGEN 18 MG/DL (7-18); CALCIUM LEVEL 9.5 MG/DL (8.8-10.2); CARBON DIOXIDE LEVEL 28 MEQ/L (21-32); CHLORIDE LEVEL 107 MEQ/L (98-107); CREATININE FOR GFR 0.66 MG/DL (0.55-1.30); GLOMERULAR FILTRATION RATE > 60.0 (>45); GLUCOSE, FASTING 104 MG/DL (70-100); POTASSIUM SERUM 5.1 MEQ/L (3.5-5.1); SODIUM LEVEL 140 MEQ/L (136-145); TOTAL PROTEIN 7.3 GM/DL (6.4-8.2)
== END ==
LOC: M LABDRWAD 16:49
PROVIDERS: ATTEND Nurse Practitioner Family
DX: D47.1 Chronic myeloproliferative disease (principal)

== ENCOUNTER 2019-09-11 08:59 | Day surgery (SDC) | payer MEDICARE, BC ==
[2019-09-11] VITALS (7 sets, daily range): BP systolic 124–174; BP diastolic 58–74
[~2019-09-11] VITALS: Ht 165.1 cm; Wt 108.5 kg
[~2019-09-11 08:59] MED LIST changes: -AUGM875T28 PO; -DORZ2SOL4 OS; -ENAL-36 PO; +ENAL10TA2 PO; +ENAL20TA PO; -ENAL20TA11 PO; -HYDR-3715 PO; -NITR0.4S14 SL; -XALA0.007 OU; -[UNRECOGNIZED DRUG - CODE] PO
[2019-09-11] MEDS ORDERED: NITR0.4S14 SL (09:08)
[2019-09-11] MEDS ORDERED: [UNRECOGNIZED DRUG - CODE] PO (09:08)
[2019-09-11 09:50] LABS: BASO % 0.1 % (0.0-1.0); EOS % 0.2 % (0.0-3.0); HEMATOCRIT 32.5 % (36.0-47.0); HEMOGLOBIN 10.5 g/dl (12.0-15.5); LYMPH % 10.6 % (24.0-44.0); MEAN CORPUSCULAR HEMOGLOBIN 33.4 pg (27.0-33.0); MEAN CORPUSCULAR HGB CONC 32.3 g/dl (32.0-36.5); MEAN CORPUSCULAR VOLUME 103.5 fl (80.0-96.0); MONO # 0.5 10^3/uL (0.0-0.8); MONO % 5.4 % (0.0-5.0); NEUTROPHILS # 8.1 10^3/uL (1.5-8.5); PLATELET COUNT, AUTOMATED 394 10^3/uL (150-450); RED BLOOD COUNT 3.14 10^6/uL (4.00-5.40); WHITE BLOOD COUNT 9.8 10^3/uL (4.0-10.0)
[2019-09-11 10:00] LABS: INR 1.5; PROTHROMBIN TIME 17.8 SECONDS (11.8-14.0)
[2019-09-11 10:01] LABS: PARTIAL THROMBOPLASTIN TIME 32.8 SECONDS (25.0-38.4)
[2019-09-11 10:18] LABS: ALBUMIN 3.5 GM/DL (3.2-5.2); BILIRUBIN,DIRECT 0.3 MG/DL (0.0-0.2); BILIRUBIN,TOTAL 0.9 MG/DL (0.2-1.0)
--- NOTE | 2019-09-11 12:03 | REP ---
REASON: Clinical constipation. PRIORS: None. FINDINGS: KUB shows the intestinal gas pattern to be nonspecific. The organ silhouettes insofar as delineated are unremarkable. There is no evidence of free intraperitoneal air. IMPRESSION: Nonspecific. The stool pattern is within normal limits. Electronically Signed by Jacob Waggoner DO 09/11/2019 12:57 P
[2019-09-11] MEDS ORDERED: MORPHINE 4 MG/ML 1ML VIAL/SYRINGE (J2270) IV ONE (13:00)
[2019-09-11] MEDS ORDERED: PIPERACILLIN/TAZOBACTAM SOD 3.375 GM in D5W MINI-BAG PLUS 50 ML IV ONE (13:00)
[2019-09-11] MEDS ORDERED: ONDANSETRON 4MG/2ML VIAL IV ONE (13:00)
[2019-09-11] MEDS ORDERED: ELIQ5TAB PO (13:13)
[2019-09-11] MEDS ORDERED: [UNRECOGNIZED DRUG - CODE] PO (13:13)
[2019-09-11] MEDS ORDERED: DORZ2SOL4 OS (13:13)
[2019-09-11] MEDS ORDERED: HYDR500C3 PO (13:13)
[2019-09-11] MEDS ORDERED: XALA0.007 OU (13:13)
[2019-09-11] MEDS ORDERED: PROAAER10 INH (13:13)
[2019-09-11] MEDS ORDERED: BUPIVACAINE/EPIN 0.25% 30 ML VIAL As Ordered ONE ×2 (13:29→13:51)
[2019-09-11] MEDS ORDERED: MIDAZOLAM INJ 2MG/2ML VIAL (J2250 PER 1MG) As Ordered ONE (13:50)
[2019-09-11] MEDS ORDERED: fentaNYL 250 MCG/5 ML INJECTION (J3010) As Ordered ONE (13:51)
[2019-09-11] MEDS ORDERED: PHENYLephrine HCL 500 MCG/5 ML (100MCG/ML) SYRINGE (J2370) As Ordered ONE (13:51)
[2019-09-11] MEDS ORDERED: ACETAMINOPHEN 1000MG 100ML IV BTL (OFIRMEV) (J0131 PER 10MG) As Ordered ONE (13:51)
[2019-09-11] MEDS ORDERED: METOCLOPRAMIDE INJ 10MG/2ML VIAL (J2765 PER 1) As Ordered ONE (13:52)
[2019-09-11] MEDS ORDERED: LIDOCAINE 2% 100MG/5ML SDV (FOR ANES.) As Ordered ONE (13:52)
[2019-09-11] MEDS ORDERED: dexameTHASONE 4 MG/ML 1ML VIAL (J1100 PER 1MG) As Ordered ONE (13:52)
[2019-09-11] MEDS ORDERED: ePHEDrine SULFATE 25 MG/5 ML(5MG/ML) SYRINGE As Ordered ONE (13:52)
[2019-09-11] MEDS ORDERED: SUGAMMADEX SODIUM 500 MG/5 ML VIAL (BRIDION) As Ordered ONE (13:52)
[2019-09-11] MEDS ORDERED: ROCURONIUM BROMIDE 50 MG/5 ML VIAL As Ordered ONE (13:52)
[2019-09-11] MEDS ORDERED: propofoL 200 MG/20 ML VIAL As Ordered ONE (13:52)
[2019-09-11] MEDS ORDERED: ONDANSETRON 4MG/2ML VIAL As Ordered ONE (13:52)
[2019-09-11] MEDS ORDERED: NS 1,000 ML IV ONE (14:15)
--- NOTE | 2019-09-11 15:52 | REP ---
REASON: Hematuria and right flank pain. COMPARISON: 07/24/2018 The lung bases are clear and unchanged. Once again, there is diffuse low density throughout the hepatic parenchyma consistent with fatty infiltration of the liver. Once again, there is evidence of cholelithiasis. The spleen, pancreas, adrenal glands, and kidneys are essentially unchanged. There are left renal cysts status quo. There is an unchanged simple right renal cyst. There is no nephroureterolithiasis, hydronephrosis or hydroureter. There are no urinary bladder calcifications. There are bilateral pelvic phleboliths. There is no evidence of free fluid or free air in the abdomen or pelvis. There is no evidence of an intra-abdominal mass or adenopathy. The appendix is markedly dilated and there is fatty infiltration of the mesoappendix along with thickening of the right lateroconal fascia. There is an appendicolith in place. The osseous structures are essentially unchanged. IMPRESSION: 1. There is acute appendicitis as described above with an appendicolith. 2. Essentially unchanged bilateral renal cysts. 3. Fatty infiltration of the liver. 4. Other findings as described above. Electronically Signed by Jacob Waggoner DO 09/11/2019 04:11 P
[2019-09-11] MEDS ORDERED: NITROGLYCERIN 0.4 MG SUBL TABLET SL PRN (16:00)
[2019-09-11] MEDS ORDERED: ONDANSETRON 4MG/2ML VIAL IV PRN ×2 (16:00→16:30)
[2019-09-11] MEDS ORDERED: ENTER DRUG NAME HERE (PATIENT'S OWN MED) PO SCH (16:00)
[2019-09-11] MEDS ORDERED: NORCO, ANEXSIA 5/325MG TABLET (HYDROcodone/ACETAMINOPHEN) PO PRN (16:00)
[2019-09-11] MEDS ORDERED: ACETAMINOPHEN TAB 650MG DOSE (2X325MG) PO PRN (16:00)
[2019-09-11] MEDS ORDERED: ALBUTEROL 90 MCG/ACT 8GM HFA INHALER INH PRN (16:00)
[2019-09-11] MEDS ORDERED: PILL CUTTER 1 EACH XX PRN (16:15)
[2019-09-11] MEDS ORDERED: oxyCODONE 5MG TAB PO PRN (16:30)
[2019-09-11] MEDS ORDERED: fentaNYL 100 MCG/2 ML INJECTION (J3010) IV PRN (16:30)
[2019-09-11] MEDS ORDERED: LR 1,000 ML IV SCH (16:30)
--- NOTE | 2019-09-11 16:46 | HPE ---
DATE OF ADMISSION: 09/11/2019 REASON FOR CONSULTATION: Abdominal pain. HISTORY OF PRESENT ILLNESS: The patient is a 68-year-old female who presents with right lower quadrant abdominal pain that she has had for a few days. It has been getting progressively worse and has localized from the mid abdomen down to the right lower quadrant. She came into emergency room. Had a CT scan that showed dilated appendix with appendicoliths near the base. No signs of perforation or abscess formation, and her white count was normal. When I met her up from preop, I discussed her findings with her and got her into the operating room for procedure. PAST MEDICAL HISTORY: 1. Diabetes. 2. Hypertension. 3. Previous myocardial infarction (CT) times two. 4. Previous pulmonary embolism (PE). 5. Polycythemia vera PAST SURGICAL HISTORY: 1. Heart stents. 2. Laparoscopic cholecystectomy. 3. Left knee surgery. ALLERGIES: To AMLODIPINE, ROPINIROLE, and EYEDROPS. HOME MEDICATIONS: Please see medication reconciliation. SOCIAL HISTORY: Denies drug, alcohol, tobacco abuse. FAMILY HISTORY: Noncontributory. REVIEW OF SYSTEMS: Pertinent positives and negatives as stated in the history of present illness (HPI). PHYSICAL EXAMINATION: GENERAL: Alert and oriented times three in no acute distress. VITAL SIGNS: Temperature 99.6, pulse 70, respiration 22, blood pressure 91/45, pulse oximetry 94% in room air. HEENT: Pupils equally, round, react to light and accommodation. HEART: S1, S2, regular rate and rhythm. LUNGS: Clear auscultation bilaterally. ABDOMEN: Soft, tender to palpation in the right lower quadrant with localized guarding. There is a small reducible umbilical hernia that is nontender. EXTREMITIES: No clubbing, cyanosis, or edema. LABORATORY DATA: White count 9.8, hemoglobin 10.5, platelets 394. PT 17.8, INR 1.5. COVID testing was negative. Glucose 136, creatinine 3.2. IMAGING STUDIES: CT abdomen and pelvis was done that showed a dilated, thickened appendix with periappendiceal inflammation suspicious for acute appendicitis. ASSESSMENT AND PLAN: Patient, again, is a 68-year-old female with signs and symptoms consistent with acute appendicitis. She also appears to have a little bit of acute renal failure, likely secondary to the inflammation, and also with her history of polycythemia vera, MIs, and PEs, recommendation at this time is to continue her on her blood thinners. I feel she is too high risk for those to be stopped. She also has this acute appendicitis. We will plan to take her to the operating room for urgent laparoscopic appendectomy. Postoperatively, we will likely keep her overnight, monitor her labs, hydrate her with some fluids, and consider hospitalist consult in the morning if she does not have any signs of improvement with her creatinine overnight. I have continued all of her home medications and will continue her on antibiotics as well for now.
[2019-09-11] MEDS ORDERED: metFORMIN XR 500MG TAB *GLUCOPHAGE XR PO SCH (18:00)
[2019-09-11] MEDS: NS 1,000 ML IV SCH (18:55)
[2019-09-11] MEDS: PIPERACILLIN/TAZOBACTAM SOD 3.375 GM in D5W MINI-BAG PLUS 50 ML IV SCH (18:55)
[2019-09-11] MEDS ORDERED: ENALAPRIL MALEATE 10 MG TAB PO SCH (21:00)
[2019-09-11] MEDS ORDERED: ROSUVASTATIN 10 MG TAB (CRESTOR) PO SCH (21:00)
[2019-09-11] MEDS ORDERED: LATANOPROST 0.005% OPHTH SOLN 2.5 ML OU SCH (21:00)
[2019-09-11] MEDS ORDERED: EZETIMIBE 10 MG TAB (ZETIA) PO SCH (21:00)
[2019-09-11] MEDS: APIXABAN 5 MG TAB (ELIQUIS) PO SCH (21:32)
[2019-09-11] MEDS: METOPROLOL TART 50 MG TAB PO SCH (21:33)
[2019-09-11] MEDS: SENOKOT S TAB PO SCH (21:33)
[2019-09-11] MEDS: DORZOLAMIDE 2% OPHTH SOLN 10 ML BTL OS SCH (21:33)
[2019-09-12] MEDS: PIPERACILLIN/TAZOBACTAM SOD 3.375 GM in D5W MINI-BAG PLUS 50 ML IV SCH ×2 (00:59→06:12)
[2019-09-12] MEDS: NS 1,000 ML IV SCH (05:49)
[2019-09-12 06:00] VITALS: BP 137/65
[2019-09-12] MEDS ORDERED: ACETAMINOPHEN TAB 650MG DOSE (2X325MG) PO PRN (08:30)
[2019-09-12] MEDS ORDERED: NORCO, ANEXSIA 5/325MG TABLET (HYDROcodone/ACETAMINOPHEN) PO PRN (08:30)
[2019-09-12 08:33] LABS: HEMATOCRIT 30.9 % (36.0-47.0); HEMOGLOBIN 10.2 g/dl (12.0-15.5); MEAN CORPUSCULAR HEMOGLOBIN 34.3 pg (27.0-33.0); PLATELET COUNT, AUTOMATED 367 10^3/uL (150-450); RED BLOOD COUNT 2.97 10^6/uL (4.00-5.40)
[2019-09-12] MEDS ORDERED: HYDROXYUREA 500 MG CAP PO SCH (09:00)
[2019-09-12] MEDS ORDERED: ENALAPRIL MALEATE 10 MG TAB PO SCH (09:00)
[2019-09-12] MEDS ORDERED: ASCORBIC ACID 500 MG TAB PO SCH (09:00)
[2019-09-12] MEDS ORDERED: allopurinoL 100 MG TAB PO SCH (09:00)
[2019-09-12] MEDS ORDERED: TIMOLOL XE GFS 0.5% OPHTH 5 ML OU SCH (09:00)
[2019-09-12 09:17] LABS: ALBUMIN 3.4 GM/DL (3.2-5.2); ALT/SGPT 41 U/L (12-78); BILIRUBIN,TOTAL 0.6 MG/DL (0.2-1.0); BLOOD UREA NITROGEN 13 MG/DL (7-18); CALCIUM LEVEL 9.5 MG/DL (8.8-10.2); CARBON DIOXIDE LEVEL 26 MEQ/L (21-32); CHLORIDE LEVEL 107 MEQ/L (98-107); CREATININE FOR GFR 0.72 MG/DL (0.55-1.30); GLOMERULAR FILTRATION RATE > 60.0 (>45); GLUCOSE, FASTING 169 MG/DL (70-100); POTASSIUM SERUM 4.4 MEQ/L (3.5-5.1); SODIUM LEVEL 140 MEQ/L (136-145); TOTAL PROTEIN 6.9 GM/DL (6.4-8.2)
[2019-09-12 09:43] VITALS: BP 136/56
[2019-09-12] MEDS: METOPROLOL TART 50 MG TAB PO SCH (09:43)
[2019-09-12] MEDS: DORZOLAMIDE 2% OPHTH SOLN 10 ML BTL OS SCH (09:43)
[2019-09-12] MEDS: SENOKOT S TAB PO SCH (09:43)
[2019-09-12] MEDS: APIXABAN 5 MG TAB (ELIQUIS) PO SCH (09:43)
[2019-09-12 10:00] VITALS: BP 126/56
[2019-09-12] MEDS ORDERED: AUGM875T28 PO (10:56)
[2019-09-12] MEDS ORDERED: HYDR-3715 PO (10:56)
[2019-09-13] MEDS ORDERED: HYDROXYUREA 500 MG CAP PO SCH (09:00)
--- NOTE | 2019-09-17 14:00 | RO ---
DATE OF PROCEDURE: 09/11/2019 PREOPERATIVE DIAGNOSIS: Acute appendicitis. POSTOPERATIVE DIAGNOSIS: Perforated appendicitis. PROCEDURE: Laparoscopic appendectomy with abdominal washout. SURGEON: Dr. Mattson CAPPING MACHINE OPERATOR: None. ANESTHESIA: General. ESTIMATED BLOOD LOSS: 10. COMPLICATIONS: None. INDICATIONS FOR PROCEDURE: The patient is a 68-year-old female who presents with a few day history of right lower quadrant pain that started to get progressively worse. She came into emergency room this afternoon and was found to have acute appendicitis with normal labs. Recommendation was to proceed with laparoscopic appendectomy. Risks and benefits of the procedure not limited but including bleeding, infection, hernia formation, damage to surrounding structures, need for further surgery were discussed in detail with the patient. Informed consent was obtained and procedure was planned. DESCRIPTION OF PROCEDURE: The patient was brought to operating room #4. After sufficient sedation, the abdomen was sterilely prepped and draped. Next, time-out was done to confirm proper patient and proper procedure. Following that a 5 mm incision was made in left upper quadrant. Veress needle was inserted and the abdomen was insufflated to 50 mmHg. Veress needle was then removed and a 5 mm Optiview was used to gain access to the abdomen. Once the abdomen was entered another 8 mm port was placed supraumbilically in midline, another 5 mm port infraumbilically in the midline. The right lower quadrant was examined. The terminal ileum was looping over top of the cecum and was densely adhered over top of the appendix. After using some blunt dissection to gently tease the terminal ileum away from this area, there was a localized perforation of the base the appendix that was all contained in the mesentery and the sidewall of the terminal ileum. The area was suctioned out. The base of the appendix was then identified and carefully elevated up. The mesoappendix taken down until the base was reached using the Enseal revealing a large perforation just next to the base of the appendix with a large amount of hard stool that was sticking out of it. This was all removed carefully. The base was then ligated with two PDS Endoloops. The base of the appendix was amputated using the Enseal. The appendix was then placed inside of a 5 mm Endo Catch bag and brought out through the supraumbilical port site. Suction was used to remove all the loose tissue and fluid that had leaked out from around the appendix. Tisseel was then placed around the base the appendix. A 19-Vietnamese Wilmer drain was then placed next to the base of the appendix and brought out through the supraumbilical port site sutured in place with #2-0 silk suture. The abdomen was then desufflated. Skin incisions were closed with #4-0 Vicryl subcuticular sutures. The abdomen was cleaned and dried. 4 x 4 and tape were applied, thus ending procedure.
== END 2019-09-12 12:39 | disposition home or self-care (01) ==
LOC: M ED 08:59 → M SDC 09:00 → M MSPAV 17:28 → M SDC 17:29
PROVIDERS: ATTEND Surgery
DX: K35.33 Acute appendicitis with perforation, localized peritonitis, and gangrene, with abscess (principal); I10 Essential (primary) hypertension; I25.2 Old myocardial infarction; E11.9 Type 2 diabetes mellitus without complications; Z86.711 Personal history of pulmonary embolism; D45 Polycythemia vera; Z98.61 Coronary angioplasty status; Z88.8 Allergy status to other drugs, medicaments and biological substances; Z79.899 Other long term (current) drug therapy
CPT/HCPCS: 36415; 44970; 74018; 74176; 80047; 80053; 80076; 81001; 83690; 85025; 85027; 85610; 85730; 88304; 96365; 96366; 96375; 99284; A6024; J0131; J1100; J2250; J2270; J2370; J2405; J2543; J2765; J3010; U0002

== ENCOUNTER → 2019-09-17 | Outpatient (CLI) | payer MEDICARE, BC ==
[~2019-09-17] MED LIST changes: +AUGM875T28 PO; +DORZ2SOL4 OS; +ENAL-36 PO; -ENAL10TA2 PO; -ENAL20TA PO; +ENAL20TA11 PO; +HYDR-3715 PO; +NITR0.4S14 SL; +XALA0.007 OU; +[UNRECOGNIZED DRUG - CODE] PO
[2019-09-17 10:28] LABS: BASO % 0.5 % (0.0-1.0); EOS # 0.1 10^3/uL (0.0-0.5); EOS % 1.2 % (0.0-3.0); HEMATOCRIT 32.2 % (36.0-47.0); HEMOGLOBIN 10.4 g/dl (12.0-15.5); LYMPH # 2.1 10^3/uL (1.5-5.0); LYMPH % 24.5 % (24.0-44.0); MEAN CORPUSCULAR HEMOGLOBIN 34.3 pg (27.0-33.0); MEAN CORPUSCULAR HGB CONC 32.3 g/dl (32.0-36.5); MEAN CORPUSCULAR VOLUME 106.3 fl (80.0-96.0); MONO # 0.6 10^3/uL (0.0-0.8); MONO % 6.8 % (0.0-5.0); NEUTROPHILS # 5.5 10^3/uL (1.5-8.5); NEUTROPHILS % 63.2 % (36.0-66.0); PLATELET COUNT, AUTOMATED 539 10^3/uL (150-450); RED BLOOD COUNT 3.03 10^6/uL (4.00-5.40); WHITE BLOOD COUNT 8.7 10^3/uL (4.0-10.0)
[2019-09-17 10:58] LABS: ALBUMIN 3.2 GM/DL (3.2-5.2); ALT/SGPT 48 U/L (12-78); BILIRUBIN,TOTAL 0.3 MG/DL (0.2-1.0); BLOOD UREA NITROGEN 17 MG/DL (7-18); CALCIUM LEVEL 9.7 MG/DL (8.8-10.2); CARBON DIOXIDE LEVEL 31 MEQ/L (21-32); CHLORIDE LEVEL 104 MEQ/L (98-107); CREATININE FOR GFR 0.72 MG/DL (0.55-1.30); GLOMERULAR FILTRATION RATE > 60.0 (>45); GLUCOSE, FASTING 97 MG/DL (70-100); POTASSIUM SERUM 4.7 MEQ/L (3.5-5.1); SODIUM LEVEL 140 MEQ/L (136-145); TOTAL PROTEIN 7.5 GM/DL (6.4-8.2)
== END ==
LOC: M LAB 09:37
PROVIDERS: ATTEND Internal Medicine Hematology & Oncology
DX: D75.89 Other specified diseases of blood and blood-forming organs (principal)

== ENCOUNTER → 2019-10-04 | Outpatient (REF) | payer MEDICARE, BC ==
[2019-11-02 04:27] LABS: BASO % 0.3 % (0.0-1.0); EOS # 0.1 10^3/uL (0.0-0.5); EOS % 0.9 % (0.0-3.0); HEMATOCRIT 32.5 % (36.0-47.0); HEMOGLOBIN 10.5 g/dl (12.0-15.5); LYMPH # 1.8 10^3/uL (1.5-5.0); LYMPH % 27.5 % (24.0-44.0); MEAN CORPUSCULAR HEMOGLOBIN 34.5 pg (27.0-33.0); MEAN CORPUSCULAR HGB CONC 32.3 g/dl (32.0-36.5); MEAN CORPUSCULAR VOLUME 106.9 fl (80.0-96.0); MONO # 0.4 10^3/uL (0.0-0.8); MONO % 6.2 % (0.0-5.0); NEUTROPHILS # 4.3 10^3/uL (1.5-8.5); NEUTROPHILS % 64.8 % (36.0-66.0); PLATELET COUNT, AUTOMATED 465 10^3/uL (150-450); RED BLOOD COUNT 3.04 10^6/uL (4.00-5.40); WHITE BLOOD COUNT 6.6 10^3/uL (4.0-10.0)
[2019-11-18 08:06] LABS: ALBUMIN 3.6 GM/DL (3.2-5.2); ALT/SGPT 27 U/L (12-78); BILIRUBIN,TOTAL 0.4 MG/DL (0.2-1.0); BLOOD UREA NITROGEN 17 MG/DL (7-18); CALCIUM LEVEL 9.8 MG/DL (8.8-10.2); CARBON DIOXIDE LEVEL 29 MEQ/L (21-32); CHLORIDE LEVEL 106 MEQ/L (98-107); CREATININE FOR GFR 0.73 MG/DL (0.55-1.30); GLOMERULAR FILTRATION RATE > 60.0 (>45); GLUCOSE, FASTING 113 MG/DL (70-100); POTASSIUM SERUM 4.7 MEQ/L (3.5-5.1); SODIUM LEVEL 140 MEQ/L (136-145); TOTAL PROTEIN 7.1 GM/DL (6.4-8.2)
== END ==
LOC: M LABDRWAD 15:41
PROVIDERS: ATTEND Nurse Practitioner Family
DX: D47.1 Chronic myeloproliferative disease (principal)

== ENCOUNTER → 2019-12-13 | Outpatient (REF) | payer MEDICARE, BC ==
[2019-12-13 13:02] LABS: BASO % 0.5 % (0.0-1.0); EOS # 0.1 10^3/uL (0.0-0.5); HEMATOCRIT 32.1 % (36.0-47.0); HEMOGLOBIN 10.4 g/dl (12.0-15.5); LYMPH % 35.1 % (24.0-44.0); MEAN CORPUSCULAR HGB CONC 32.4 g/dl (32.0-36.5); MEAN CORPUSCULAR VOLUME 111.1 fl (80.0-96.0); MONO # 0.4 10^3/uL (0.0-0.8); MONO % 7.1 % (0.0-5.0); NEUTROPHILS # 3.3 10^3/uL (1.5-8.5); PLATELET COUNT, AUTOMATED 406 10^3/uL (150-450); RED BLOOD COUNT 2.89 10^6/uL (4.00-5.40); WHITE BLOOD COUNT 5.8 10^3/uL (4.0-10.0)
[2019-12-13 13:32] LABS: ALBUMIN 3.8 GM/DL (3.2-5.2); ALT/SGPT 28 U/L (12-78); BILIRUBIN,TOTAL 0.3 MG/DL (0.2-1.0); BLOOD UREA NITROGEN 21 MG/DL (7-18); CALCIUM LEVEL 9.4 MG/DL (8.8-10.2); CARBON DIOXIDE LEVEL 29 MEQ/L (21-32); CHLORIDE LEVEL 107 MEQ/L (98-107); CREATININE FOR GFR 0.73 MG/DL (0.55-1.30); GLOMERULAR FILTRATION RATE > 60.0 (>45); GLUCOSE, FASTING 112 MG/DL (70-100); POTASSIUM SERUM 4.5 MEQ/L (3.5-5.1); SODIUM LEVEL 141 MEQ/L (136-145); TOTAL PROTEIN 6.9 GM/DL (6.4-8.2)
== END ==
LOC: M LABDRWAD 12:32
PROVIDERS: ATTEND Nurse Practitioner Family
DX: D47.1 Chronic myeloproliferative disease (principal)

== ENCOUNTER → 2020-01-28 | Outpatient (REF) | payer MEDICARE, BC ==
[~2020-01-28] MED LIST changes: -ASPI-525 PO; +ASPI325T48 PO
[2020-01-28 13:22] LABS: PERCENT SATURATION 26.9 % (13.2-45.0)
[2020-01-28 13:26] LABS: FOLATE 20.7 NG/ML
== END ==
LOC: M LAB REF 12:29
PROVIDERS: ATTEND Family Medicine
DX: D47.1 Chronic myeloproliferative disease (principal); D64.9 Anemia, unspecified

== ENCOUNTER → 2020-02-26 | Outpatient (REF) | payer MEDICARE, BC ==
[2020-02-26 13:06] LABS: BASO % 0.3 % (0.0-1.0); EOS # 0.1 10^3/uL (0.0-0.5); EOS % 0.8 % (0.0-3.0); HEMATOCRIT 31.1 % (36.0-47.0); LYMPH # 1.7 10^3/uL (1.5-5.0); LYMPH % 28.6 % (24.0-44.0); MEAN CORPUSCULAR HEMOGLOBIN 36.5 pg (27.0-33.0); MEAN CORPUSCULAR HGB CONC 32.2 g/dl (32.0-36.5); MEAN CORPUSCULAR VOLUME 113.5 fl (80.0-96.0); MONO # 0.4 10^3/uL (0.0-0.8); MONO % 6.6 % (0.0-5.0); NEUTROPHILS # 3.8 10^3/uL (1.5-8.5); PLATELET COUNT, AUTOMATED 442 10^3/uL (150-450); RED BLOOD COUNT 2.74 10^6/uL (4.00-5.40); WHITE BLOOD COUNT 6.1 10^3/uL (4.0-10.0)
[2020-02-26 13:31] LABS: ALBUMIN 3.7 GM/DL (3.2-5.2); ALT/SGPT 28 U/L (12-78); BILIRUBIN,TOTAL 0.5 MG/DL (0.2-1.0); BLOOD UREA NITROGEN 20 MG/DL (7-18); CALCIUM LEVEL 9.1 MG/DL (8.8-10.2); CARBON DIOXIDE LEVEL 29 MEQ/L (21-32); CHLORIDE LEVEL 104 MEQ/L (98-107); CREATININE FOR GFR 0.76 MG/DL (0.55-1.30); GLOMERULAR FILTRATION RATE > 60.0 (>45); GLUCOSE, FASTING 103 MG/DL (70-100); POTASSIUM SERUM 4.7 MEQ/L (3.5-5.1); SODIUM LEVEL 139 MEQ/L (136-145)
== END ==
LOC: M LABDRWAD 12:27
DX: D47.1 Chronic myeloproliferative disease (principal)

== ENCOUNTER → 2020-04-09 | Outpatient (REF) | payer MEDICARE, BC ==
[~2020-04-09] MED LIST changes: +HYDR-3490 PO; -HYDR25TAB PO
[2020-04-09 12:02] LABS: BASO % 0.3 % (0.0-1.0); EOS # 0.1 10^3/uL (0.0-0.5); EOS % 0.8 % (0.0-3.0); HEMATOCRIT 30.2 % (36.0-47.0); HEMOGLOBIN 9.9 g/dl (12.0-15.5); LYMPH # 1.9 10^3/uL (1.5-5.0); MEAN CORPUSCULAR HEMOGLOBIN 38.4 pg (27.0-33.0); MEAN CORPUSCULAR HGB CONC 32.8 g/dl (32.0-36.5); MONO # 0.5 10^3/uL (0.0-0.8); MONO % 8.3 % (0.0-5.0); NEUTROPHILS # 3.7 10^3/uL (1.5-8.5); NEUTROPHILS % 59.1 % (36.0-66.0); PLATELET COUNT, AUTOMATED 417 10^3/uL (150-450); RED BLOOD COUNT 2.58 10^6/uL (4.00-5.40); WHITE BLOOD COUNT 6.3 10^3/uL (4.0-10.0)
[2020-04-09 12:03] LABS: MEAN CORPUSCULAR VOLUME 117.1 fl (80.0-96.0)
[2020-04-09 12:29] LABS: PLATELET ESTIMATE NORMAL (NORMAL)
[2020-04-09 12:30] LABS: ALT/SGPT 27 U/L (12-78); BILIRUBIN,TOTAL 0.3 MG/DL (0.2-1.0); BLOOD UREA NITROGEN 23 MG/DL (7-18); CALCIUM LEVEL 9.9 MG/DL (8.8-10.2); CARBON DIOXIDE LEVEL 30 MEQ/L (21-32); CHLORIDE LEVEL 104 MEQ/L (98-107); CREATININE FOR GFR 0.77 MG/DL (0.55-1.30); GLOMERULAR FILTRATION RATE > 60.0 (>45); GLUCOSE, FASTING 104 MG/DL (70-100); SODIUM LEVEL 141 MEQ/L (136-145); TOTAL PROTEIN 7.1 GM/DL (6.4-8.2)
== END ==
LOC: M LAB REF 11:30
PROVIDERS: ATTEND Nurse Practitioner Family
DX: D47.1 Chronic myeloproliferative disease (principal)

== ENCOUNTER → 2020-05-14 | Outpatient (CLI) | payer MEDICARE, BC ==
--- NOTE | 2020-05-14 10:34 | REPMRS ---
Patient History The patient states she has not had a clinical breast exam in over a year. Patient has history of other cancer at age 63 and had previous chemotherapy at age 63. Family history of unknown cancer in mother, unknown cancer in father, unknown cancer in sister, unknown cancer in sister, unknown cancer in sister, unknown cancer in maternal aunt, unknown cancer in maternal aunt. Digital Woman Screen Mammo: May 14, 2020 - Exam #: [id number] Bilateral CC and MLO view(s) were taken. Technologist: Kristie Snyder, Technologist Prior study comparison: May 06, 2019, bilateral digital mammo screening bilat, performed at [facility]. April 25, 2018, bilateral digital mammo screening bilat, performed at [facility]. April 13, 2017, bilateral digital mammo screening bilat, performed at [facility]. FINDINGS: There are scattered fibroglandular densities. The Volpara volumetric breast density category is:B. There has been no change in the appearance of the mammogram from the prior studies. There is a mild amount of scattered fibroglandular density which is fairly symmetric. There is no interval development of dominant mass, architectural distortion, or grouped microcalcification suggestive of malignancy. 3-D tomosynthesis shows no additional findings. Assessment: BI-RADS/ACR category 1 mammogram. Negative Mammogram. Recommendation Routine screening mammogram of both breasts in 1 year (for women over age 40). This patient's [facility] Lifetime Breast Cancer Risk is estimated at 4.2 %. This mammogram was interpreted with the aid of an FDA-approved computer-aided dectection system. Electronically Signed By: Jaun M Harper MD 05/14/20 [id number]
== END ==
LOC: M WHC 08:46
PROVIDERS: ATTEND Family Medicine
DX: Z12.31 Encounter for screening mammogram for malignant neoplasm of breast (principal); Z85.89 Personal history of malignant neoplasm of other organs and systems; Z92.21 Personal history of antineoplastic chemotherapy; Z80.8 Family history of malignant neoplasm of other organs or systems

== ENCOUNTER → 2020-05-26 | Outpatient (REF) | payer MEDICARE, BC ==
[2020-05-26 13:43] LABS: RHEUMATOID FACTOR QUANT < 10.0 IU/ML (<15.0); URIC ACID 3.7 MG/DL (2.6-6.0)
[2020-05-27 21:09] LABS: ANA (HEP2) Negative (.); SSA SJOGRENS A <0.2 AI (0.0-0.9); SSB SJOGRENS B <0.2 AI (0.0-0.9)
== END ==
LOC: M SFHCRHEU 10:04
PROVIDERS: ATTEND Internal Medicine
DX: L65.9 Nonscarring hair loss, unspecified (principal); H04.129 Dry eye syndrome of unspecified lacrimal gland; M10.9 Gout, unspecified
CPT/HCPCS: 84550; 86038; 86235; 86431; G0463

== ENCOUNTER → 2020-05-29 | Outpatient (CLI) | payer MEDICARE, BC ==
--- NOTE | 2020-05-29 08:14 | REP ---
INDICATION: MPN, EVAL SLEEN- XR AFTER COMPARISON: None. TECHNIQUE: Real time rose scale ultrasound examination using curved array transducer. FINDINGS: Ultrasound examination of the left upper quadrant demonstrates heterogeneous spleen measuring 8.1 x 3.3 x 7.9 cm (splenic index 211). No focal splenic lesion identified. The right kidney is normal in reniform shape measuring 10.5 x 5.7 x 4.6 cm with multiple cysts measuring up to 3.0 cm. No hydronephrosis or nephrolithiasis. No ascites in the left upper quadrant noted. IMPRESSION: Heterogeneous spleen without splenomegaly. Left renal cysts. <Electronically signed by Travis Russell > 05/29/20 [id number]
== END ==
LOC: M RAD 07:16
PROVIDERS: ATTEND Internal Medicine Hematology & Oncology
DX: Q61.02 Congenital multiple renal cysts (principal); D47.1 Chronic myeloproliferative disease

== ENCOUNTER → 2020-05-29 | Outpatient (CLI) | payer MEDICARE, BC ==
--- NOTE | 2020-05-29 08:10 | REP ---
INDICATION: PRIMARY OSTEOARTHRITIS, UNSPECIFIED HAND- U/S FIRST COMPARISON: Right hand series dated 10/09/2006. TECHNIQUE: There are four views of each hand. FINDINGS: Right hand four views: There is demineralization. There is erosive osteoarthritis of the PIP and DIP articulations of the 2nd through 5th digits and IP articulation of the thumb. There is joint space narrowing of the MCP articulations of all 5 digits. The cortical surfaces are smooth, however there are faintly visible osteophytes forming at some of the metacarpal heads. This is compatible with osteoarthritis. There is joint space narrowing of the thumb CMC articulation compatible with osteoarthritis. There is a faintly visible bony fragment adjacent to the 5th digit metacarpal neck, possibly a fracture fragment, not present previously. Left hand four views: There is demineralization. There is erosive osteoarthritis of the PIP and DIP articulations of the 2nd through 5th digits and of the thumb IP articulation. There is joint space narrowing of the MCP articulations, however, the cortical surfaces are smooth. This may represent early osteoarthritis other arthropathies are possible. No definite osteophytic formation is identified at this time. There is joint space narrowing of the thumb CMC articulation compatible with early osteoarthritis. IMPRESSION: Osteo arthritic findings as described. Demineralization. Probable bony fragment adjacent to the neck of the right hand 5th digit metacarpal. <Electronically signed by Kalia Jefferson > 05/29/20 [id number]
--- NOTE | 2020-05-29 08:16 | REP ---
INDICATION: PRIMARY OSTEOARTHRITIS, UNSPECIFIED HAND- U/S FIRST. COMPARISON: None. TECHNIQUE: Cervical spine 7 views including lateral flexion and extension views. FINDINGS: Vertebral body heights and alignment are normal. There is disc space narrowing compatible with degenerative disc disease at C 6 7. The prevertebral soft tissues are unremarkable. The facets are normally aligned. There is minimal facet osteoarthritis. There is no listhesis on flexion or extension. There is foraminal encroachment from uncinate spurring on the left at C 4 5 The odontoid view is unremarkable. IMPRESSION: C6-7 degenerative disc disease. Minimal facet osteoarthritis. Foraminal encroachment from uncinate spurring on the left at C4-5. No listhesis on flexion or extension. <Electronically signed by Kalia Jefferson > 05/29/20 [id number]
== END ==
LOC: M RAD 07:15
PROVIDERS: ATTEND Internal Medicine
DX: M50.323 Other cervical disc degeneration at C6-C7 level (principal); M19.041 Primary osteoarthritis, right hand; M19.042 Primary osteoarthritis, left hand; Q61.02 Congenital multiple renal cysts; D47.1 Chronic myeloproliferative disease

== ENCOUNTER → 2020-06-05 | Outpatient (CLI) | payer MEDICARE, BC ==
[2020-06-05 09:30] LABS: BASO % 0.4 % (0.0-1.0); EOS % 0.7 % (0.0-3.0); HEMATOCRIT 31.2 % (36.0-47.0); HEMOGLOBIN 10.1 g/dl (12.0-15.5); LYMPH # 1.5 10^3/uL (1.5-5.0); LYMPH % 26.7 % (24.0-44.0); MEAN CORPUSCULAR HEMOGLOBIN 37.8 pg (27.0-33.0); MEAN CORPUSCULAR HGB CONC 32.4 g/dl (32.0-36.5); MONO # 0.4 10^3/uL (0.0-0.8); MONO % 7.7 % (2.0-8.0); NEUTROPHILS # 3.5 10^3/uL (1.5-8.5); NEUTROPHILS % 63.1 % (36.0-66.0); PLATELET COUNT, AUTOMATED 450 10^3/uL (150-450); RED BLOOD COUNT 2.67 10^6/uL (4.00-5.40); WHITE BLOOD COUNT 5.6 10^3/uL (4.0-10.0)
[2020-06-05 09:31] LABS: MEAN CORPUSCULAR VOLUME 116.9 fl (80.0-96.0)
[2020-06-05 09:37] LABS: PERCENT SATURATION 25.9 % (13.2-45.0)
== END ==
LOC: M LAB 08:42
DX: D47.1 Chronic myeloproliferative disease (principal)

== ENCOUNTER → 2020-07-20 | Outpatient (CLI) | payer MEDICARE, BC ==
[2020-07-20 11:04] LABS: BASO % 0.4 % (0.0-1.0); EOS % 0.6 % (0.0-3.0); HEMATOCRIT 32.7 % (36.0-47.0); HEMOGLOBIN 10.4 g/dl (12.0-15.5); LYMPH # 1.5 10^3/uL (1.5-5.0); LYMPH % 31.7 % (24.0-44.0); MEAN CORPUSCULAR HEMOGLOBIN 36.5 pg (27.0-33.0); MEAN CORPUSCULAR HGB CONC 31.8 g/dl (32.0-36.5); MONO # 0.4 10^3/uL (0.0-0.8); MONO % 8.7 % (2.0-8.0); NEUTROPHILS # 2.8 10^3/uL (1.5-8.5); NEUTROPHILS % 58.4 % (36.0-66.0); PLATELET COUNT, AUTOMATED 453 10^3/uL (150-450); RED BLOOD COUNT 2.85 10^6/uL (4.00-5.40); WHITE BLOOD COUNT 4.7 10^3/uL (4.0-10.0)
[2020-07-20 11:05] LABS: MEAN CORPUSCULAR VOLUME 114.7 fl (80.0-96.0)
[2020-07-20 11:37] LABS: ANISOCYTOSIS 1+; PLATELET ESTIMATE MARKED DECREASE (NORMAL)
[2020-07-20 11:38] LABS: HYPOCHROMASIA 1+
[2020-07-20 12:20] LABS: ALBUMIN 3.9 GM/DL (3.2-5.2); ALT/SGPT 29 U/L (12-78); BILIRUBIN,TOTAL 0.4 MG/DL (0.2-1.0); BLOOD UREA NITROGEN 18 MG/DL (7-18); CALCIUM LEVEL 9.5 MG/DL (8.8-10.2); CARBON DIOXIDE LEVEL 27 MEQ/L (21-32); CHLORIDE LEVEL 106 MEQ/L (98-107); CREATININE FOR GFR 0.67 MG/DL (0.55-1.30); GLOMERULAR FILTRATION RATE > 60.0 (>45); GLUCOSE, FASTING 109 MG/DL (70-100); POTASSIUM SERUM 4.7 MEQ/L (3.5-5.1); SODIUM LEVEL 140 MEQ/L (136-145); TOTAL PROTEIN 7.2 GM/DL (6.4-8.2)
== END ==
LOC: M LAB 08:49
DX: D47.1 Chronic myeloproliferative disease (principal)

== ENCOUNTER 2020-09-30 09:02 | Emergency (ER) | payer MEDICARE, BC ==
[~2020-09-30] VITALS: Ht 165.1 cm; Wt 107.7 kg
[~2020-09-30 09:02] MED LIST changes: -DORZ2SOL4 OS; +DORZ2SOL4 OU; +ERGO500029 PO; +FERR325T3 PO; +GING500C3 PO; -VITA50005 PO
[2020-09-30] MEDS ORDERED: LISI20TA33 PO (09:19)
[2020-09-30] MEDS ORDERED: MECLIZINE 25 MG TABLET PO ONE (09:40)
[2020-09-30 10:17] LABS: BASO % 0.3 % (0.0-1.0); EOS % 0.5 % (0.0-3.0); HEMOGLOBIN 11.1 g/dl (12.0-15.5); LYMPH # 1.7 10^3/uL (1.5-5.0); LYMPH % 26.3 % (24.0-44.0); MEAN CORPUSCULAR HEMOGLOBIN 36.5 pg (27.0-33.0); MEAN CORPUSCULAR HGB CONC 32.6 g/dl (32.0-36.5); MEAN CORPUSCULAR VOLUME 111.8 fl (80.0-96.0); MONO # 0.5 10^3/uL (0.0-0.8); MONO % 7.8 % (2.0-8.0); NEUTROPHILS # 4.1 10^3/uL (1.5-8.5); NEUTROPHILS % 64.6 % (36.0-66.0); PLATELET COUNT, AUTOMATED 442 10^3/uL (150-450); RED BLOOD COUNT 3.04 10^6/uL (4.00-5.40); WHITE BLOOD COUNT 6.3 10^3/uL (4.0-10.0)
[2020-09-30] MEDS ORDERED: NS 1,000 ML IV ONE (10:20)
[2020-09-30 10:32] LABS: INR 1.07; PARTIAL THROMBOPLASTIN TIME 32.4 SECONDS (25.9-37.0); PROTHROMBIN TIME 14.3 SECONDS (12.7-14.5)
[2020-09-30 10:49] LABS: CK-MB VALUE MASS < 1.0 NG/ML (<3.6); CPK CREATINE PHOSPHOKINASE 155 U/L (26-192); MB/CK RELATIVE INDEX 0.65 (< OR =4); TROPONIN I < 0.02 NG/ML (< 0.10)
[2020-09-30] MEDS ORDERED: ASPI81TA26 PO (10:50)
[2020-09-30] MEDS ORDERED: HYDR500C3 PO (10:50)
[2020-09-30] MEDS ORDERED: ROSU10TA6 PO (10:50)
[2020-09-30] MEDS ORDERED: METO1TAB7 PO (10:50)
[2020-09-30] MEDS ORDERED: D31000TA2 PO (10:50)
[2020-09-30] MEDS ORDERED: HOME MED LIST COMPLETE! XX SCH (10:55)
[2020-09-30 11:24] LABS: ALBUMIN 4.1 GM/DL (3.2-5.2); ALT/SGPT 27 U/L (12-78); BILIRUBIN,DIRECT 0.1 MG/DL (0.0-0.2); BILIRUBIN,TOTAL 0.4 MG/DL (0.2-1.0); TOTAL PROTEIN 7.5 GM/DL (6.4-8.2)
[2020-09-30 12:12] LABS: BLOOD UREA NITROGEN 22 MG/DL (7-18); CALCIUM LEVEL 9.5 MG/DL (8.8-10.2); CARBON DIOXIDE LEVEL 28 MEQ/L (21-32); CHLORIDE LEVEL 107 MEQ/L (98-107); CREATININE FOR GFR 0.67 MG/DL (0.55-1.30); GLOMERULAR FILTRATION RATE > 60.0 (>45); GLUCOSE, FASTING 108 MG/DL (70-100); POTASSIUM SERUM 4.8 MEQ/L (3.5-5.1); SODIUM LEVEL 140 MEQ/L (136-145)
[2020-09-30 12:52] LABS: RSV AMPLIFICATION NEGATIVE (NEGATIVE)
[2020-09-30] MEDS ORDERED: MECL1TAB31 PO (13:28)
[2020-09-30 14:15] VITALS: BP 169/90
[2020-12-23] MEDS ORDERED: TRIA1CR80 (11:47)
== END 2020-09-30 14:28 | disposition home or self-care (01) ==
LOC: M ED 09:02
DX: R42 Dizziness and giddiness (principal); R00.1 Bradycardia, unspecified; I25.10 Atherosclerotic heart disease of native coronary artery without angina pectoris; I25.2 Old myocardial infarction; E11.9 Type 2 diabetes mellitus without complications; I10 Essential (primary) hypertension; G47.30 Sleep apnea, unspecified; Z95.5 Presence of coronary angioplasty implant and graft; Z86.711 Personal history of pulmonary embolism; Z79.01 Long term (current) use of anticoagulants; Z79.84 Long term (current) use of oral hypoglycemic drugs; Z79.899 Other long term (current) drug therapy; Z88.8 Allergy status to other drugs, medicaments and biological substances

== ENCOUNTER → 2020-12-10 | Outpatient (CLI) | payer MEDICARE, BC ==
[~2020-12-10] MED LIST changes: +ASPI81TA26 PO; +D31000TA2 PO; +LISI20TA33 PO; +MECL1TAB31 PO; +METO1TAB7 PO; +ROSU10TA6 PO
--- NOTE | 2020-12-10 10:00 | REP ---
INDICATION: RIGHT HIP PAIN. COMPARISON: None TECHNIQUE: AP and frog-lateral views FINDINGS: There is mild appearing rather symmetric hip joint space narrowing. There is no evidence of buttressing. There is no fracture, dislocation, or subluxation. IMPRESSION: Degenerative changes as described above. <Electronically signed by Jacob Waggoner > 12/10/20 [id number]
== END ==
LOC: M RAD 09:21
PROVIDERS: ATTEND Psychiatry & Neurology Neurology
DX: M25.551 Pain in right hip (principal); M19.071 Primary osteoarthritis, right ankle and foot

== ENCOUNTER → 2021-03-10 | Outpatient (CLI) | payer MEDICARE, BC ==
[~2021-03-10] MED LIST changes: +TRIA1CR80
[2021-03-10 09:56] LABS: BASO % 0.4 % (0.0-1.0); EOS # 0.1 10^3/uL (0.0-0.5); EOS % 1.1 % (0.0-3.0); HEMATOCRIT 33.3 % (36.0-47.0); HEMOGLOBIN 10.8 g/dl (12.0-15.5); LYMPH # 0.6 10^3/uL (1.5-5.0); LYMPH % 10.5 % (24.0-44.0); MEAN CORPUSCULAR HEMOGLOBIN 37.2 pg (27.0-33.0); MEAN CORPUSCULAR HGB CONC 32.4 g/dl (32.0-36.5); MONO # 0.4 10^3/uL (0.0-0.8); MONO % 7.8 % (2.0-8.0); NEUTROPHILS # 4.5 10^3/uL (1.5-8.5); NEUTROPHILS % 79.5 % (36.0-66.0); PLATELET COUNT, AUTOMATED 399 10^3/uL (150-450); WHITE BLOOD COUNT 5.6 10^3/uL (4.0-10.0)
[2021-03-10 10:00] LABS: MEAN CORPUSCULAR VOLUME 114.8 fl (80.0-96.0)
[2021-03-10 10:39] LABS: ANISOCYTOSIS 1+; PLATELET ESTIMATE NORMAL (NORMAL); POLYCHROMASIA 1+
[2021-03-10 10:58] LABS: ALT/SGPT 26 U/L (12-78); BILIRUBIN,TOTAL 0.3 MG/DL (0.2-1.0); BLOOD UREA NITROGEN 18 MG/DL (7-18); CALCIUM LEVEL 9.7 MG/DL (8.8-10.2); CARBON DIOXIDE LEVEL 30 MEQ/L (21-32); CHLORIDE LEVEL 105 MEQ/L (98-107); CREATININE FOR GFR 0.64 MG/DL (0.55-1.30); GLOMERULAR FILTRATION RATE > 60.0 (>45); GLUCOSE, FASTING 120 MG/DL (70-100); POTASSIUM SERUM 4.5 MEQ/L (3.5-5.1); SODIUM LEVEL 139 MEQ/L (136-145); TOTAL PROTEIN 7.1 GM/DL (6.4-8.2)
== END ==
LOC: M LAB 09:30
PROVIDERS: ATTEND Internal Medicine Hematology & Oncology
DX: D47.1 Chronic myeloproliferative disease (principal)

== ENCOUNTER → 2021-04-20 | Outpatient (CLI) | payer MEDICARE, BC | LOC: M RAD 10:21 | PROVIDERS: ATTEND Family Medicine | DX: R10.11 Right upper quadrant pain (principal); K76.0 Fatty (change of) liver, not elsewhere classified; Z90.49 Acquired absence of other specified parts of digestive tract; N28.1 Cyst of kidney, acquired ==

== ENCOUNTER → 2021-06-08 | Outpatient (CLI) | payer MEDICARE, BC ==
[~2021-06-08] MED LIST changes: -D31000TA2 PO; +VITA100093 PO
== END ==
LOC: M WHC 10:15
PROVIDERS: ATTEND Family Medicine
DX: Z12.31 Encounter for screening mammogram for malignant neoplasm of breast (principal); Z80.9 Family history of malignant neoplasm, unspecified

== ENCOUNTER → 2021-08-09 | Outpatient (CLI) | payer MEDICARE, BC ==
[~2021-08-09] MED LIST changes: -GNPLIQ60 PO; +GNPLIQ67 PO
[2021-08-09 09:51] LABS: BASO % 0.2 % (0.0-1.0); EOS % 0.7 % (0.0-3.0); HEMATOCRIT 33.4 % (36.0-47.0); LYMPH # 1.5 10^3/uL (1.5-5.0); MEAN CORPUSCULAR HEMOGLOBIN 37.9 pg (27.0-33.0); MEAN CORPUSCULAR HGB CONC 32.9 g/dl (32.0-36.5); MONO # 0.5 10^3/uL (0.0-0.8); MONO % 9.3 % (2.0-8.0); NEUTROPHILS # 3.5 10^3/uL (1.5-8.5); NEUTROPHILS % 63.1 % (36.0-66.0); PLATELET COUNT, AUTOMATED 420 10^3/uL (150-450); WHITE BLOOD COUNT 5.6 10^3/uL (4.0-10.0)
[2021-08-09 10:18] LABS: MEAN CORPUSCULAR VOLUME 115.2 fl (80.0-96.0)
[2021-08-09 10:31] LABS: ALBUMIN 3.6 GM/DL (3.2-5.2); ALT/SGPT 24 U/L (12-78); BILIRUBIN,TOTAL 0.3 MG/DL (0.2-1.0); BLOOD UREA NITROGEN 20 MG/DL (7-18); CALCIUM LEVEL 9.1 MG/DL (8.8-10.2); CARBON DIOXIDE LEVEL 30 MEQ/L (21-32); CHLORIDE LEVEL 109 MEQ/L (98-107); CREATININE FOR GFR 0.67 MG/DL (0.55-1.30); GLOMERULAR FILTRATION RATE > 60.0 (>45); GLUCOSE, FASTING 108 MG/DL (70-100); POTASSIUM SERUM 4.5 MEQ/L (3.5-5.1); SODIUM LEVEL 140 MEQ/L (136-145); TOTAL PROTEIN 7.3 GM/DL (6.4-8.2)
== END ==
LOC: M LAB 09:21
PROVIDERS: ATTEND Internal Medicine Hematology & Oncology
DX: D47.1 Chronic myeloproliferative disease (principal)

== ENCOUNTER → 2021-09-06 | Outpatient (REF) | payer MEDICARE, BC ==
[2021-09-06 13:43] LABS: BASO % 0.3 % (0.0-1.0); HEMATOCRIT 31.5 % (36.0-47.0); HEMOGLOBIN 10.2 g/dl (12.0-15.5); LYMPH % 24.9 % (24.0-44.0); MEAN CORPUSCULAR HEMOGLOBIN 37.2 pg (27.0-33.0); MEAN CORPUSCULAR HGB CONC 32.4 g/dl (32.0-36.5); MONO # 0.6 10^3/uL (0.0-0.8); MONO % 14.4 % (2.0-8.0); NEUTROPHILS # 2.3 10^3/uL (1.5-8.5); NEUTROPHILS % 59.1 % (36.0-66.0); PLATELET COUNT, AUTOMATED 312 10^3/uL (150-450); RED BLOOD COUNT 2.74 10^6/uL (4.00-5.40); WHITE BLOOD COUNT 3.9 10^3/uL (4.0-10.0)
[2021-09-06 14:07] LABS: ALBUMIN 3.2 GM/DL (3.2-5.2); ALT/SGPT 32 U/L (12-78); BILIRUBIN,TOTAL 0.5 MG/DL (0.2-1.0); BLOOD UREA NITROGEN 13 MG/DL (7-18); CALCIUM LEVEL 8.7 MG/DL (8.8-10.2); CARBON DIOXIDE LEVEL 31 MEQ/L (21-32); CHLORIDE LEVEL 109 MEQ/L (98-107); CREATININE FOR GFR 0.76 MG/DL (0.55-1.30); GLOMERULAR FILTRATION RATE > 60.0 (>45); GLUCOSE, FASTING 147 MG/DL (70-100); POTASSIUM SERUM 4.1 MEQ/L (3.5-5.1); SODIUM LEVEL 140 MEQ/L (136-145); TOTAL PROTEIN 6.9 GM/DL (6.4-8.2)
== END ==
LOC: M LAB REF 13:30
PROVIDERS: ATTEND Internal Medicine Hematology & Oncology
DX: D47.1 Chronic myeloproliferative disease (principal)

== ENCOUNTER → 2021-10-25 | Outpatient (REF) | payer MEDICARE, BC ==
[2021-10-25 14:05] LABS: BASO % 0.4 % (0.0-1.0); EOS # 0.1 10^3/uL (0.0-0.5); EOS % 1.9 % (0.0-3.0); HEMOGLOBIN 11.4 g/dl (12.0-15.5); LYMPH # 1.9 10^3/uL (1.5-5.0); LYMPH % 35.3 % (24.0-44.0); MEAN CORPUSCULAR HEMOGLOBIN 34.3 pg (27.0-33.0); MEAN CORPUSCULAR HGB CONC 32.6 g/dl (32.0-36.5); MEAN CORPUSCULAR VOLUME 105.4 fl (80.0-96.0); MONO # 0.4 10^3/uL (0.0-0.8); MONO % 7.5 % (2.0-8.0); NEUTROPHILS # 2.9 10^3/uL (1.5-8.5); NEUTROPHILS % 54.3 % (36.0-66.0); PLATELET COUNT, AUTOMATED 392 10^3/uL (150-450); RED BLOOD COUNT 3.32 10^6/uL (4.00-5.40); WHITE BLOOD COUNT 5.3 10^3/uL (4.0-10.0)
[2021-10-25 14:38] LABS: ALBUMIN 3.4 GM/DL (3.2-5.2); ALT/SGPT 25 U/L (12-78); BILIRUBIN,TOTAL 0.3 MG/DL (0.2-1.0); BLOOD UREA NITROGEN 16 MG/DL (7-18); CALCIUM LEVEL 9.7 MG/DL (8.8-10.2); CARBON DIOXIDE LEVEL 31 MEQ/L (21-32); CHLORIDE LEVEL 107 MEQ/L (98-107); GLOMERULAR FILTRATION RATE > 60.0 (>45); GLUCOSE, FASTING 110 MG/DL (70-100); SODIUM LEVEL 140 MEQ/L (136-145); TOTAL PROTEIN 7.5 GM/DL (6.4-8.2)
== END ==
LOC: M LAB REF 13:35
PROVIDERS: ATTEND Internal Medicine Hematology & Oncology
DX: D47.1 Chronic myeloproliferative disease (principal)

== ENCOUNTER → 2021-12-06 | Outpatient (REF) | payer MEDICARE, BC ==
[2021-12-06 14:40] LABS: BASO % 0.2 % (0.0-1.0); EOS # 0.1 10^3/uL (0.0-0.5); EOS % 1.2 % (0.0-3.0); HEMATOCRIT 35.6 % (36.0-47.0); HEMOGLOBIN 11.2 g/dl (12.0-15.5); LYMPH # 1.7 10^3/uL (1.5-5.0); LYMPH % 33.7 % (24.0-44.0); MEAN CORPUSCULAR HEMOGLOBIN 31.8 pg (27.0-33.0); MEAN CORPUSCULAR HGB CONC 31.5 g/dl (32.0-36.5); MEAN CORPUSCULAR VOLUME 101.1 fl (80.0-96.0); MONO # 0.4 10^3/uL (0.0-0.8); MONO % 7.1 % (2.0-8.0); NEUTROPHILS # 2.9 10^3/uL (1.5-8.5); NEUTROPHILS % 57.4 % (36.0-66.0); PLATELET COUNT, AUTOMATED 343 10^3/uL (150-450); RED BLOOD COUNT 3.52 10^6/uL (4.00-5.40); WHITE BLOOD COUNT 5.1 10^3/uL (4.0-10.0)
[2021-12-06 15:17] LABS: ALBUMIN 3.5 GM/DL (3.2-5.2); ALT/SGPT 37 U/L (12-78); BILIRUBIN,TOTAL 0.4 MG/DL (0.2-1.0); BLOOD UREA NITROGEN 21 MG/DL (7-18); CALCIUM LEVEL 9.5 MG/DL (8.8-10.2); CARBON DIOXIDE LEVEL 30 MEQ/L (21-32); CHLORIDE LEVEL 107 MEQ/L (98-107); CREATININE FOR GFR 0.79 MG/DL (0.55-1.30); GLOMERULAR FILTRATION RATE > 60.0 (>39); GLUCOSE, FASTING 160 MG/DL (70-100); POTASSIUM SERUM 3.7 MEQ/L (3.5-5.1); SODIUM LEVEL 140 MEQ/L (136-145); TOTAL PROTEIN 7.4 GM/DL (6.4-8.2)
== END ==
LOC: M LAB REF 13:52
PROVIDERS: ATTEND Internal Medicine Hematology & Oncology
DX: D47.1 Chronic myeloproliferative disease (principal)

== ENCOUNTER → 2021-12-24 | Outpatient (REF) | payer MEDICARE, BC | LOC: M LAB REF 11:55 | PROVIDERS: ATTEND Family Medicine | DX: M10.9 Gout, unspecified (principal) ==

== ENCOUNTER → 2022-02-11 | Outpatient (CLI) | payer MEDICARE, BC ==
[~2022-02-11] MED LIST changes: +[UNRECOGNIZED DRUG - CODE]
[2022-02-11 12:14] LABS: BASO % 0.2 % (0.0-1.0); EOS # 0.1 10^3/uL (0.0-0.5); EOS % 1.8 % (0.0-3.0); HEMATOCRIT 38.8 % (36.0-47.0); HEMOGLOBIN 12.3 g/dl (12.0-15.5); LYMPH # 1.4 10^3/uL (1.5-5.0); LYMPH % 28.7 % (24.0-44.0); MEAN CORPUSCULAR HEMOGLOBIN 30.8 pg (27.0-33.0); MEAN CORPUSCULAR HGB CONC 31.7 g/dl (32.0-36.5); MONO # 0.5 10^3/uL (0.0-0.8); MONO % 10.4 % (2.0-8.0); NEUTROPHILS # 2.9 10^3/uL (1.5-8.5); NEUTROPHILS % 58.3 % (36.0-66.0); PLATELET COUNT, AUTOMATED 298 10^3/uL (150-450); WHITE BLOOD COUNT 4.9 10^3/uL (4.0-10.0)
[2022-02-11 12:33] LABS: ALBUMIN 3.4 G/DL (3.2-5.2); ALKALINE PHOSPHATASE 58 U/L (46-116); ALT/SGPT 29 U/L (7.0-40); AST/SGOT 30 U/L (<34); BILIRUBIN,TOTAL 0.4 MG/DL (0.3-1.2); BLOOD UREA NITROGEN 16 MG/DL (9-23); CALCIUM LEVEL 9.7 MG/DL (8.3-10.6); CARBON DIOXIDE LEVEL 29 MMOL/L (20-31); CHLORIDE LEVEL 105 MMOL/L (98-107); GLOMERULAR FILTRATION RATE > 60.0 (>39); GLUCOSE, FASTING 98 MG/DL (74-106); POTASSIUM SERUM 4.5 MMOL/L (3.5-5.1); SODIUM LEVEL 140 MMOL/L (136-145); TOTAL PROTEIN 6.9 G/DL (5.7-8.2)
== END ==
LOC: M LAB 11:42
PROVIDERS: ATTEND Internal Medicine Hematology & Oncology
DX: D47.1 Chronic myeloproliferative disease (principal)

== ENCOUNTER → 2022-02-11 | Outpatient (CLI) | payer MEDICARE, BC ==
[2022-02-11 12:14] LABS: BASO % 0.4 % (0.0-1.0); EOS # 0.1 10^3/uL (0.0-0.5); EOS % 1.9 % (0.0-3.0); HEMATOCRIT 38.9 % (36.0-47.0); HEMOGLOBIN 12.2 g/dl (12.0-15.5); LYMPH # 1.4 10^3/uL (1.5-5.0); LYMPH % 29.2 % (24.0-44.0); MEAN CORPUSCULAR HEMOGLOBIN 30.3 pg (27.0-33.0); MEAN CORPUSCULAR HGB CONC 31.4 g/dl (32.0-36.5); MEAN CORPUSCULAR VOLUME 96.8 fl (80.0-96.0); MONO # 0.4 10^3/uL (0.0-0.8); MONO % 9.2 % (2.0-8.0); NEUTROPHILS # 2.8 10^3/uL (1.5-8.5); NEUTROPHILS % 58.7 % (36.0-66.0); PLATELET COUNT, AUTOMATED 296 10^3/uL (150-450); RED BLOOD COUNT 4.02 10^6/uL (4.00-5.40); WHITE BLOOD COUNT 4.8 10^3/uL (4.0-10.0)
[2022-02-11 12:34] LABS: ALBUMIN 3.4 G/DL (3.2-5.2); ALKALINE PHOSPHATASE 57 U/L (46-116); ALT/SGPT 29 U/L (7.0-40); AST/SGOT 30 U/L (<34); BILIRUBIN,TOTAL 0.4 MG/DL (0.3-1.2); BLOOD UREA NITROGEN 16 MG/DL (9-23); CALCIUM LEVEL 9.7 MG/DL (8.3-10.6); CARBON DIOXIDE LEVEL 29 MMOL/L (20-31); CHLORIDE LEVEL 104 MMOL/L (98-107); CREATININE FOR GFR 0.61 MG/DL (0.55-1.30); GLOMERULAR FILTRATION RATE > 60.0 (>39); GLUCOSE, FASTING 98 MG/DL (74-106); POTASSIUM SERUM 4.5 MMOL/L (3.5-5.1); SODIUM LEVEL 139 MMOL/L (136-145); TOTAL PROTEIN 6.9 G/DL (5.7-8.2)
== END ==
LOC: M LAB 11:37
PROVIDERS: ATTEND Nurse Practitioner Family
DX: I25.10 Atherosclerotic heart disease of native coronary artery without angina pectoris (principal)

== ENCOUNTER → 2022-03-01 | Outpatient (CLI) | payer MEDICARE, BC ==
[2022-03-01 10:10] LABS: BASO % 0.3 % (0.0-1.0); EOS # 0.2 10^3/uL (0.0-0.5); EOS % 2.4 % (0.0-3.0); HEMATOCRIT 38.7 % (36.0-47.0); HEMOGLOBIN 12.1 g/dl (12.0-15.5); LYMPH # 1.6 10^3/uL (1.5-5.0); LYMPH % 25.9 % (24.0-44.0); MEAN CORPUSCULAR HEMOGLOBIN 30.5 pg (27.0-33.0); MEAN CORPUSCULAR HGB CONC 31.3 g/dl (32.0-36.5); MEAN CORPUSCULAR VOLUME 97.5 fl (80.0-96.0); MONO # 0.6 10^3/uL (0.0-0.8); MONO % 9.1 % (2.0-8.0); NEUTROPHILS # 3.8 10^3/uL (1.5-8.5); PLATELET COUNT, AUTOMATED 279 10^3/uL (150-450); RED BLOOD COUNT 3.97 10^6/uL (4.00-5.40); WHITE BLOOD COUNT 6.1 10^3/uL (4.0-10.0)
[2022-03-01 10:24] LABS: ERYTHROCYTE SEDIMENTATION RATE 51 mm/hr (0-30)
[2022-03-01 10:37] LABS: C REACTIVE PROTEIN QUANTITATIV < 0.40 MG/DL (<1.0)
[2022-03-01 10:38] LABS: RHEUMATOID FACTOR QUANT < 3.5 IU/ML (<14)
== END ==
LOC: M LAB 09:48
DX: G56.02 Carpal tunnel syndrome, left upper limb (principal)

== ENCOUNTER → 2022-03-30 | Outpatient (CLI) | payer MEDICARE, BC ==
[2022-03-30 10:33] LABS: BASO % 0.2 % (0.0-1.0); EOS # 0.1 10^3/uL (0.0-0.5); EOS % 2.9 % (0.0-3.0); HEMATOCRIT 38.3 % (36.0-47.0); HEMOGLOBIN 11.9 g/dl (12.0-15.5); LYMPH # 1.3 10^3/uL (1.5-5.0); LYMPH % 30.3 % (24.0-44.0); MEAN CORPUSCULAR HEMOGLOBIN 30.8 pg (27.0-33.0); MEAN CORPUSCULAR HGB CONC 31.1 g/dl (32.0-36.5); MEAN CORPUSCULAR VOLUME 99.2 fl (80.0-96.0); MONO # 0.4 10^3/uL (0.0-0.8); MONO % 9.4 % (2.0-8.0); NEUTROPHILS # 2.4 10^3/uL (1.5-8.5); PLATELET COUNT, AUTOMATED 233 10^3/uL (150-450); RED BLOOD COUNT 3.86 10^6/uL (4.00-5.40); WHITE BLOOD COUNT 4.2 10^3/uL (4.0-10.0)
[2022-03-30 11:04] LABS: ALBUMIN 3.5 G/DL (3.2-5.2); ALKALINE PHOSPHATASE 53 U/L (46-116); ALT/SGPT 31 U/L (7.0-40); AST/SGOT 31 U/L (<34); BILIRUBIN,TOTAL 0.4 MG/DL (0.3-1.2); BLOOD UREA NITROGEN 18 MG/DL (9-23); CARBON DIOXIDE LEVEL 27 MMOL/L (20-31); CHLORIDE LEVEL 109 MMOL/L (98-107); CREATININE FOR GFR 0.56 MG/DL (0.55-1.30); GLOMERULAR FILTRATION RATE > 60.0 (>39); GLUCOSE, FASTING 100 MG/DL (74-106); POTASSIUM SERUM 4.5 MMOL/L (3.5-5.1); SODIUM LEVEL 141 MMOL/L (136-145); TOTAL PROTEIN 6.6 G/DL (5.7-8.2)
== END ==
LOC: M LAB 09:39
PROVIDERS: ATTEND Nurse Practitioner
DX: D47.1 Chronic myeloproliferative disease (principal)

== ENCOUNTER → 2022-04-20 | Outpatient (REF) | payer MEDICARE, BC | LOC: M LAB REF 12:07 | PROVIDERS: ATTEND Student in an Organized Health Care Education/Training Program | DX: J02.9 Acute pharyngitis, unspecified (principal) ==

== ENCOUNTER → 2022-04-25 | Outpatient (CLI) | payer MEDICARE, BC ==
[2022-04-25 14:10] LABS: BASO % 0.2 % (0.0-1.0); EOS # 0.3 10^3/uL (0.0-0.5); EOS % 5.5 % (0.0-3.0); HEMATOCRIT 36.9 % (36.0-47.0); HEMOGLOBIN 11.8 g/dl (12.0-15.5); LYMPH # 1.3 10^3/uL (1.5-5.0); LYMPH % 26.4 % (24.0-44.0); MEAN CORPUSCULAR HEMOGLOBIN 31.1 pg (27.0-33.0); MEAN CORPUSCULAR VOLUME 97.1 fl (80.0-96.0); MONO # 0.5 10^3/uL (0.0-0.8); NEUTROPHILS # 2.8 10^3/uL (1.5-8.5); NEUTROPHILS % 57.3 % (36.0-66.0); PLATELET COUNT, AUTOMATED 261 10^3/uL (150-450); WHITE BLOOD COUNT 4.9 10^3/uL (4.0-10.0)
[2022-04-25 14:25] LABS: ALBUMIN 3.1 G/DL (3.2-5.2); ALKALINE PHOSPHATASE 57 U/L (46-116); ALT/SGPT 26 U/L (7.0-40); AST/SGOT 32 U/L (<34); BILIRUBIN,TOTAL 0.3 MG/DL (0.3-1.2); BLOOD UREA NITROGEN 11 MG/DL (9-23); CALCIUM LEVEL 8.8 MG/DL (8.3-10.6); CARBON DIOXIDE LEVEL 29 MMOL/L (20-31); CHLORIDE LEVEL 105 MMOL/L (98-107); CREATININE FOR GFR 0.53 MG/DL (0.55-1.30); GLOMERULAR FILTRATION RATE > 60.0 (>39); GLUCOSE, FASTING 87 MG/DL (74-106); POTASSIUM SERUM 4.6 MMOL/L (3.5-5.1); SODIUM LEVEL 141 MMOL/L (136-145); TOTAL PROTEIN 6.6 G/DL (5.7-8.2)
== END ==
LOC: M LAB 11:46
PROVIDERS: ATTEND Internal Medicine Hematology & Oncology
DX: D47.1 Chronic myeloproliferative disease (principal)

== ENCOUNTER 2022-05-30 01:46 | Emergency (ER) | payer MEDICARE, BC ==
[~2022-05-30] VITALS: Ht 165.1 cm; Wt 101.5 kg
[~2022-05-30 01:46] MED LIST changes: -BETI1SOL OU; -ENAL-36 PO; +ENAL1TAB50 PO; +ENAL1TAB52 PO; -ENAL20TA11 PO; +TIMO5DRO5 OU
[2022-05-30 02:19] LABS: BASO % 0.3 % (0.0-1.0); EOS # 0.1 10^3/uL (0.0-0.5); EOS % 1.7 % (0.0-3.0); HEMATOCRIT 40.9 % (36.0-47.0); HEMOGLOBIN 13.3 g/dl (12.0-15.5); LYMPH # 2.9 10^3/uL (1.5-5.0); LYMPH % 39.9 % (24.0-44.0); MEAN CORPUSCULAR HEMOGLOBIN 31.1 pg (27.0-33.0); MEAN CORPUSCULAR HGB CONC 32.5 g/dl (32.0-36.5); MEAN CORPUSCULAR VOLUME 95.6 fl (80.0-96.0); MONO # 0.8 10^3/uL (0.0-0.8); MONO % 11.1 % (2.0-8.0); NEUTROPHILS # 3.4 10^3/uL (1.5-8.5); NEUTROPHILS % 46.4 % (36.0-66.0); PLATELET COUNT, AUTOMATED 323 10^3/uL (150-450); RED BLOOD COUNT 4.28 10^6/uL (4.00-5.40); WHITE BLOOD COUNT 7.2 10^3/uL (4.0-10.0)
[2022-05-30] MEDS ORDERED: METOPROLOL 5 MG/5 ML VIAL As Ordered ONE (02:20)
[2022-05-30] MEDS: METOPROLOL 5 MG/5 ML VIAL IV PRN ×3 (02:30→02:53)
[2022-05-30 02:33] LABS: INR 0.89; PROTHROMBIN TIME 12.2 SECONDS (12.5-14.5)
[2022-05-30 02:43] LABS: LIPASE 89 U/L (12-53)
[2022-05-30 02:48] LABS: RSV AMPLIFICATION NEGATIVE (NEGATIVE)
[2022-05-30] MEDS ORDERED: METOPROLOL TART 50 MG TAB PO ONE (03:10)
[2022-05-30] MEDS ORDERED: METOPROLOL 5 MG/5 ML VIAL IV PRN (03:10)
[2022-05-30 03:27] LABS: ALBUMIN 3.9 G/DL (3.2-5.2); ALKALINE PHOSPHATASE 63 U/L (46-116); ALT/SGPT 56 U/L (7.0-40); AST/SGOT 47 U/L (<34); BILIRUBIN,DIRECT 0.1 MG/DL (<0.4); BILIRUBIN,TOTAL 0.3 MG/DL (0.3-1.2); BLOOD UREA NITROGEN 22 MG/DL (9-23); CALCIUM LEVEL 9.6 MG/DL (8.3-10.6); CARBON DIOXIDE LEVEL 29 MMOL/L (20-31); CHLORIDE LEVEL 104 MMOL/L (98-107); CK-MB VALUE MASS < 1.0 NG/ML (<3.6); CREATININE FOR GFR 0.54 MG/DL (0.55-1.30); GLOMERULAR FILTRATION RATE > 60.0 (>39); GLUCOSE, FASTING 120 MG/DL (74-106); SODIUM LEVEL 138 MMOL/L (136-145); THYROID STIMULATING HORMONE 2.674 uIU/ML (0.55-4.78)
[2022-05-30 03:39] LABS: CPK CREATINE PHOSPHOKINASE 35 U/L (34-145); MB/CK RELATIVE INDEX 2.85 (< OR =4); TOTAL PROTEIN 7.7 G/DL (5.7-8.2)
[2022-05-30 04:18] LABS: CK-MB VALUE MASS < 1.0 NG/ML (<3.6); CPK CREATINE PHOSPHOKINASE 32 U/L (34-145); MB/CK RELATIVE INDEX 3.12 (< OR =4)
[2022-05-30 04:30] VITALS: BP 107/55
[2022-05-30] MEDS ORDERED: METOPROLOL SUCC (TopROL XL) 50MG **XL** TAB PO ONE (04:40)
[2022-05-30 04:53] VITALS: BP 136/73
== END 2022-05-30 04:56 | disposition home or self-care (01) ==
LOC: M ED 01:46
DX: I48.91 Unspecified atrial fibrillation (principal); I25.10 Atherosclerotic heart disease of native coronary artery without angina pectoris; E11.9 Type 2 diabetes mellitus without complications; I10 Essential (primary) hypertension; D50.9 Iron deficiency anemia, unspecified; Z86.711 Personal history of pulmonary embolism; Z79.01 Long term (current) use of anticoagulants; Z79.82 Long term (current) use of aspirin; Z79.84 Long term (current) use of oral hypoglycemic drugs; Z79.899 Other long term (current) drug therapy; Z88.8 Allergy status to other drugs, medicaments and biological substances

== ENCOUNTER → 2022-06-06 | Outpatient (CLI) | payer MEDICARE, BC ==
[2022-06-06 12:53] LABS: BASO % 0.4 % (0.0-1.0); EOS # 0.1 10^3/uL (0.0-0.5); EOS % 1.6 % (0.0-3.0); HEMATOCRIT 37.2 % (36.0-47.0); HEMOGLOBIN 11.9 g/dl (12.0-15.5); LYMPH # 2.5 10^3/uL (1.5-5.0); LYMPH % 33.3 % (24.0-44.0); MEAN CORPUSCULAR HEMOGLOBIN 30.9 pg (27.0-33.0); MEAN CORPUSCULAR VOLUME 96.6 fl (80.0-96.0); MONO # 0.7 10^3/uL (0.0-0.8); MONO % 9.8 % (2.0-8.0); NEUTROPHILS # 4.1 10^3/uL (1.5-8.5); NEUTROPHILS % 54.5 % (36.0-66.0); PLATELET COUNT, AUTOMATED 288 10^3/uL (150-450); RED BLOOD COUNT 3.85 10^6/uL (4.00-5.40); WHITE BLOOD COUNT 7.4 10^3/uL (4.0-10.0)
== END ==
LOC: M LAB 11:49
PROVIDERS: ATTEND Internal Medicine Hematology & Oncology
DX: D47.1 Chronic myeloproliferative disease (principal)

== ENCOUNTER → 2022-06-09 | Outpatient (CLI) | payer MEDICARE, BC | LOC: M WHC 08:05 | PROVIDERS: ATTEND Family Medicine | DX: Z12.31 Encounter for screening mammogram for malignant neoplasm of breast (principal); R92.8 Other abnormal and inconclusive findings on diagnostic imaging of breast ==

== ENCOUNTER → 2022-06-20 | Outpatient (CLI) | payer MEDICARE, BC ==
[2022-06-20 11:10] LABS: BASO % 0.2 % (0.0-1.0); EOS % 0.4 % (0.0-3.0); HEMOGLOBIN 11.8 g/dl (12.0-15.5); LYMPH # 2.5 10^3/uL (1.5-5.0); LYMPH % 24.6 % (24.0-44.0); MEAN CORPUSCULAR HEMOGLOBIN 30.8 pg (27.0-33.0); MEAN CORPUSCULAR HGB CONC 31.9 g/dl (32.0-36.5); MEAN CORPUSCULAR VOLUME 96.6 fl (80.0-96.0); MONO # 0.8 10^3/uL (0.0-0.8); MONO % 7.6 % (2.0-8.0); NEUTROPHILS # 6.8 10^3/uL (1.5-8.5); NEUTROPHILS % 66.8 % (36.0-66.0); PLATELET COUNT, AUTOMATED 327 10^3/uL (150-450); RED BLOOD COUNT 3.83 10^6/uL (4.00-5.40); WHITE BLOOD COUNT 10.1 10^3/uL (4.0-10.0)
[2022-06-20 11:35] LABS: ALBUMIN 3.4 G/DL (3.2-5.2); ALKALINE PHOSPHATASE 52 U/L (46-116); ALT/SGPT 43 U/L (7.0-40); AST/SGOT 30 U/L (<34); BILIRUBIN,TOTAL 0.4 MG/DL (0.3-1.2); BLOOD UREA NITROGEN 18 MG/DL (9-23); CALCIUM LEVEL 9.6 MG/DL (8.3-10.6); CARBON DIOXIDE LEVEL 28 MMOL/L (20-31); CHLORIDE LEVEL 103 MMOL/L (98-107); GLOMERULAR FILTRATION RATE > 60.0 (>39); GLUCOSE, FASTING 122 MG/DL (74-106); POTASSIUM SERUM 4.6 MMOL/L (3.5-5.1); SODIUM LEVEL 138 MMOL/L (136-145); TOTAL PROTEIN 7.1 G/DL (5.7-8.2)
== END ==
LOC: M PLALAB 09:04
PROVIDERS: ATTEND Nurse Practitioner
DX: D47.1 Chronic myeloproliferative disease (principal)

== ENCOUNTER → 2022-07-05 | Outpatient (CLI) | payer MEDICARE, BC ==
[~2022-07-05] MED LIST changes: +BACTDSTA; +DEXA5TA; +ERYT5OIN25
== END ==
LOC: M WUC 08:39
PROVIDERS: ATTEND Nurse Practitioner Family
DX: M25.552 Pain in left hip (principal)

== ENCOUNTER → 2022-07-06 | Outpatient (CLI) | payer MEDICARE, BC | LOC: M WHC 12:31 | PROVIDERS: ATTEND Family Medicine | DX: R92.8 Other abnormal and inconclusive findings on diagnostic imaging of breast (principal) ==

== ENCOUNTER → 2022-07-14 | Outpatient (CLI) | payer MEDICARE, BC ==
[2022-07-14 11:32] LABS: BASO % 0.4 % (0.0-1.0); EOS # 0.2 10^3/uL (0.0-0.5); HEMATOCRIT 36.6 % (36.0-47.0); HEMOGLOBIN 11.7 g/dl (12.0-15.5); LYMPH # 2.2 10^3/uL (1.5-5.0); LYMPH % 28.3 % (24.0-44.0); MEAN CORPUSCULAR HEMOGLOBIN 31.4 pg (27.0-33.0); MEAN CORPUSCULAR VOLUME 98.1 fl (80.0-96.0); MONO # 0.6 10^3/uL (0.0-0.8); NEUTROPHILS # 4.8 10^3/uL (1.5-8.5); PLATELET COUNT, AUTOMATED 346 10^3/uL (150-450); RED BLOOD COUNT 3.73 10^6/uL (4.00-5.40); WHITE BLOOD COUNT 7.9 10^3/uL (4.0-10.0)
== END ==
LOC: M PLALAB 07-13 10:09
PROVIDERS: ATTEND Internal Medicine Hematology & Oncology
DX: D47.1 Chronic myeloproliferative disease (principal)

== ENCOUNTER → 2022-08-11 | Outpatient (CLI) | payer MEDICARE, BC ==
[2022-08-11 15:25] LABS: BASO % 0.4 % (0.0-1.0); EOS # 0.4 10^3/uL (0.0-0.5); EOS % 4.4 % (0.0-3.0); HEMATOCRIT 39.1 % (36.0-47.0); HEMOGLOBIN 12.5 g/dl (12.0-15.5); LYMPH # 2.1 10^3/uL (1.5-5.0); LYMPH % 27.2 % (24.0-44.0); MEAN CORPUSCULAR HEMOGLOBIN 31.2 pg (27.0-33.0); MEAN CORPUSCULAR VOLUME 97.5 fl (80.0-96.0); MONO # 0.9 10^3/uL (0.0-0.8); MONO % 10.8 % (2.0-8.0); NEUTROPHILS # 4.5 10^3/uL (1.5-8.5); NEUTROPHILS % 56.7 % (36.0-66.0); PLATELET COUNT, AUTOMATED 370 10^3/uL (150-450); RED BLOOD COUNT 4.01 10^6/uL (4.00-5.40); WHITE BLOOD COUNT 7.9 10^3/uL (4.0-10.0)
== END ==
LOC: M PLALAB 12:37
PROVIDERS: ATTEND Internal Medicine Hematology & Oncology
DX: D47.1 Chronic myeloproliferative disease (principal)

== ENCOUNTER → 2022-08-22 | Outpatient (CLI) | payer MEDICARE, BC ==
[2022-08-22 15:29] LABS: BASO % 0.5 % (0.0-1.0); EOS # 0.6 10^3/uL (0.0-0.5); EOS % 7.3 % (0.0-3.0); HEMATOCRIT 37.5 % (36.0-47.0); HEMOGLOBIN 12.1 g/dl (12.0-15.5); LYMPH # 2.2 10^3/uL (1.5-5.0); LYMPH % 27.4 % (24.0-44.0); MEAN CORPUSCULAR HEMOGLOBIN 31.4 pg (27.0-33.0); MEAN CORPUSCULAR HGB CONC 32.3 g/dl (32.0-36.5); MEAN CORPUSCULAR VOLUME 97.4 fl (80.0-96.0); MONO # 0.6 10^3/uL (0.0-0.8); MONO % 7.9 % (2.0-8.0); NEUTROPHILS # 4.5 10^3/uL (1.5-8.5); NEUTROPHILS % 56.4 % (36.0-66.0); PLATELET COUNT, AUTOMATED 348 10^3/uL (150-450); RED BLOOD COUNT 3.85 10^6/uL (4.00-5.40)
== END ==
LOC: M PLALAB 12:28
PROVIDERS: ATTEND Internal Medicine Hematology & Oncology
DX: D47.1 Chronic myeloproliferative disease (principal)

== ENCOUNTER → 2022-09-01 | Outpatient (CLI) | payer MEDICARE, BC | LOC: M LAB 11:32 | PROVIDERS: ATTEND Internal Medicine | DX: M25.50 Pain in unspecified joint (principal) ==

== ENCOUNTER → 2022-09-01 | Outpatient (CLI) | payer MEDICARE, BC ==
[2022-09-01 14:58] LABS: BASO # 0.1 10^3/uL (0.0-0.2); BASO % 0.6 % (0.0-1.0); EOS # 0.6 10^3/uL (0.0-0.5); EOS % 6.7 % (0.0-3.0); HEMATOCRIT 40.2 % (36.0-47.0); HEMOGLOBIN 12.6 g/dl (12.0-15.5); LYMPH # 2.2 10^3/uL (1.5-5.0); LYMPH % 25.9 % (24.0-44.0); MEAN CORPUSCULAR HEMOGLOBIN 30.7 pg (27.0-33.0); MEAN CORPUSCULAR HGB CONC 31.3 g/dl (32.0-36.5); MONO # 0.6 10^3/uL (0.0-0.8); MONO % 7.6 % (2.0-8.0); PLATELET COUNT, AUTOMATED 406 10^3/uL (150-450); WHITE BLOOD COUNT 8.5 10^3/uL (4.0-10.0)
== END ==
LOC: M RAD 11:36
PROVIDERS: ATTEND Internal Medicine Hematology & Oncology
DX: D47.1 Chronic myeloproliferative disease (principal); M19.011 Primary osteoarthritis, right shoulder; M19.012 Primary osteoarthritis, left shoulder; M16.0 Bilateral primary osteoarthritis of hip

== ENCOUNTER → 2022-09-14 | Outpatient (CLI) | payer MEDICARE, BC ==
[2022-09-14 13:13] LABS: BASO # 0.1 10^3/uL (0.0-0.2); BASO % 0.6 % (0.0-1.0); EOS # 0.5 10^3/uL (0.0-0.5); HEMATOCRIT 37.4 % (36.0-47.0); HEMOGLOBIN 12.1 g/dl (12.0-15.5); LYMPH % 25.4 % (24.0-44.0); MEAN CORPUSCULAR HEMOGLOBIN 31.5 pg (27.0-33.0); MEAN CORPUSCULAR HGB CONC 32.4 g/dl (32.0-36.5); MEAN CORPUSCULAR VOLUME 97.4 fl (80.0-96.0); MONO # 0.7 10^3/uL (0.0-0.8); MONO % 8.4 % (2.0-8.0); NEUTROPHILS # 4.7 10^3/uL (1.5-8.5); NEUTROPHILS % 59.3 % (36.0-66.0); PLATELET COUNT, AUTOMATED 317 10^3/uL (150-450); RED BLOOD COUNT 3.84 10^6/uL (4.00-5.40); WHITE BLOOD COUNT 7.9 10^3/uL (4.0-10.0)
== END ==
LOC: M PLALAB 09:35
PROVIDERS: ATTEND Internal Medicine Hematology & Oncology
DX: D47.1 Chronic myeloproliferative disease (principal)

== ENCOUNTER → 2022-10-06 | Outpatient (REF) | payer MEDICARE, BC ==
[2022-10-06 13:05] LABS: CALCIUM LEVEL 9.8 MG/DL (8.3-10.6); PHOSPHORUS LEVEL 3.8 MG/DL (2.4-5.1)
[2022-10-06 13:07] LABS: FERRITIN 63.8 NG/ML (7.3-270.7); THYROID STIMULATING HORMONE 0.953 uIU/ML (0.55-4.78)
== END ==
LOC: M SFHCRHEU 08:21
PROVIDERS: ATTEND Internal Medicine
DX: M11.211 Other chondrocalcinosis, right shoulder (principal); Z79.899 Other long term (current) drug therapy

== ENCOUNTER → 2022-10-10 | Outpatient (CLI) | payer MEDICARE, BC ==
[2022-10-10 12:46] LABS: BASO % 0.2 % (0.0-1.0); EOS % 0.3 % (0.0-3.0); HEMATOCRIT 42.2 % (36.0-47.0); HEMOGLOBIN 13.4 g/dl (12.0-15.5); LYMPH # 2.7 10^3/uL (1.5-5.0); LYMPH % 19.8 % (24.0-44.0); MEAN CORPUSCULAR HGB CONC 31.8 g/dl (32.0-36.5); MEAN CORPUSCULAR VOLUME 94.6 fl (80.0-96.0); MONO # 1.1 10^3/uL (0.0-0.8); MONO % 8.4 % (2.0-8.0); NEUTROPHILS # 9.5 10^3/uL (1.5-8.5); NEUTROPHILS % 70.7 % (36.0-66.0); PLATELET COUNT, AUTOMATED 439 10^3/uL (150-450); RED BLOOD COUNT 4.46 10^6/uL (4.00-5.40); WHITE BLOOD COUNT 13.5 10^3/uL (4.0-10.0)
== END ==
LOC: M WUC 09:49
PROVIDERS: ATTEND Internal Medicine Hematology & Oncology
DX: D47.1 Chronic myeloproliferative disease (principal)

== ENCOUNTER → 2023-02-02 | Outpatient (REF) | payer MEDICARE, BC ==
[~2023-02-02] MED LIST changes: +DULO1CAP5; +EZET10TA58 PO; +MECL-209 PO; -MECL1TAB31 PO; -ZETI10TA16 PO
[2023-02-02 13:18] LABS: BASO # 0.1 10^3/uL (0.0-0.2); BASO % 0.8 % (0.0-1.0); EOS # 0.3 10^3/uL (0.0-0.5); HEMATOCRIT 43.6 % (36.0-47.0); HEMOGLOBIN 13.7 g/dl (12.0-15.5); LYMPH # 2.2 10^3/uL (1.5-5.0); LYMPH % 28.3 % (24.0-44.0); MEAN CORPUSCULAR HEMOGLOBIN 30.6 pg (27.0-33.0); MEAN CORPUSCULAR HGB CONC 31.4 g/dl (32.0-36.5); MEAN CORPUSCULAR VOLUME 97.3 fl (80.0-96.0); MONO # 0.7 10^3/uL (0.0-0.8); MONO % 8.7 % (2.0-8.0); NEUTROPHILS # 4.4 10^3/uL (1.5-8.5); NEUTROPHILS % 57.8 % (36.0-66.0); PLATELET COUNT, AUTOMATED 356 10^3/uL (150-450); RED BLOOD COUNT 4.48 10^6/uL (4.00-5.40); WHITE BLOOD COUNT 7.7 10^3/uL (4.0-10.0)
[2023-02-02 13:48] LABS: BLOOD UREA NITROGEN 15 MG/DL (9-23); CALCIUM LEVEL 9.9 MG/DL (8.3-10.6); CARBON DIOXIDE LEVEL 29 MMOL/L (20-31); CHLORIDE LEVEL 105 MMOL/L (98-107); CREATININE FOR GFR 0.56 MG/DL (0.55-1.30); GLOMERULAR FILTRATION RATE > 60.0 (>39); GLUCOSE, FASTING 100 MG/DL (74-106); POTASSIUM SERUM 5.3 MMOL/L (3.5-5.1); SODIUM LEVEL 140 MMOL/L (136-145)
== END ==
LOC: M SFHCRHEU 11:12
PROVIDERS: ATTEND Internal Medicine
DX: M15.4 Erosive (osteo)arthritis (principal); Z79.899 Other long term (current) drug therapy

== ENCOUNTER → 2023-02-07 | Outpatient (CLI) | payer MEDICARE, BC ==
[2023-02-07 17:13] LABS: BASO % 0.5 % (0.0-1.0); EOS # 0.3 10^3/uL (0.0-0.5); HEMATOCRIT 42.2 % (36.0-47.0); HEMOGLOBIN 13.4 g/dl (12.0-15.5); LYMPH # 2.2 10^3/uL (1.5-5.0); LYMPH % 28.3 % (24.0-44.0); MEAN CORPUSCULAR HEMOGLOBIN 30.7 pg (27.0-33.0); MEAN CORPUSCULAR HGB CONC 31.8 g/dl (32.0-36.5); MEAN CORPUSCULAR VOLUME 96.8 fl (80.0-96.0); MONO # 0.7 10^3/uL (0.0-0.8); MONO % 8.5 % (2.0-8.0); NEUTROPHILS # 4.5 10^3/uL (1.5-8.5); NEUTROPHILS % 58.4 % (36.0-66.0); PLATELET COUNT, AUTOMATED 352 10^3/uL (150-450); RED BLOOD COUNT 4.36 10^6/uL (4.00-5.40); WHITE BLOOD COUNT 7.7 10^3/uL (4.0-10.0)
== END ==
LOC: M PLALAB 15:30
PROVIDERS: ATTEND Nurse Practitioner
DX: D45 Polycythemia vera (principal)

== ENCOUNTER → 2023-03-27 | Outpatient (CLI) | payer MEDICARE, BC ==
[2023-03-27 12:14] LABS: BASO % 0.5 % (0.0-1.0); EOS # 0.3 10^3/uL (0.0-0.5); EOS % 3.4 % (0.0-3.0); HEMATOCRIT 42.1 % (36.0-47.0); HEMOGLOBIN 13.3 g/dl (12.0-15.5); LYMPH # 1.8 10^3/uL (1.5-5.0); LYMPH % 23.4 % (24.0-44.0); MEAN CORPUSCULAR HEMOGLOBIN 30.6 pg (27.0-33.0); MEAN CORPUSCULAR HGB CONC 31.6 g/dl (32.0-36.5); MONO # 0.6 10^3/uL (0.0-0.8); MONO % 8.2 % (2.0-8.0); NEUTROPHILS % 64.2 % (36.0-66.0); PLATELET COUNT, AUTOMATED 348 10^3/uL (150-450); RED BLOOD COUNT 4.34 10^6/uL (4.00-5.40); WHITE BLOOD COUNT 7.9 10^3/uL (4.0-10.0)
== END ==
LOC: M PLALAB 08:32
PROVIDERS: ATTEND Nurse Practitioner
DX: D45 Polycythemia vera (principal)

== ENCOUNTER → 2023-04-18 | Outpatient (CLI) | payer MEDICARE, BC | LOC: M RAD 08:02 | PROVIDERS: ATTEND Family Medicine | DX: D45 Polycythemia vera (principal); R10.9 Unspecified abdominal pain; Z90.49 Acquired absence of other specified parts of digestive tract; K76.0 Fatty (change of) liver, not elsewhere classified; N28.1 Cyst of kidney, acquired; R14.0 Abdominal distension (gaseous) ==

== ENCOUNTER → 2023-06-20 | Outpatient (CLI) | payer MEDICARE, BC ==
[~2023-06-20] MED LIST changes: -ROSU10TA6 PO; +ROSU10TA61 PO; +ROSU5TAB40 PO; -ROSU5TAB5 PO
[2023-06-20 15:42] LABS: BASO % 0.3 % (0.0-1.0); EOS # 0.3 10^3/uL (0.0-0.5); EOS % 4.3 % (0.0-3.0); HEMATOCRIT 41.9 % (36.0-47.0); LYMPH # 2.5 10^3/uL (1.5-5.0); LYMPH % 39.6 % (24.0-44.0); MEAN CORPUSCULAR HEMOGLOBIN 29.6 pg (27.0-33.0); MEAN CORPUSCULAR VOLUME 95.4 fl (80.0-96.0); MONO # 0.5 10^3/uL (0.0-0.8); NEUTROPHILS % 47.5 % (36.0-66.0); PLATELET COUNT, AUTOMATED 327 10^3/uL (150-450); RED BLOOD COUNT 4.39 10^6/uL (4.00-5.40); WHITE BLOOD COUNT 6.2 10^3/uL (4.0-10.0)
== END ==
LOC: M PLALAB 13:03
PROVIDERS: ATTEND Internal Medicine Hematology & Oncology
DX: D45 Polycythemia vera (principal)

== ENCOUNTER → 2023-06-21 | Outpatient (CLI) | payer MEDICARE ==
[~2023-06-21] MED LIST changes: +ROSU10TA6 PO; -ROSU10TA61 PO; -ROSU5TAB40 PO; +ROSU5TAB5 PO
== END ==
LOC: M WHC 11:21
PROVIDERS: ATTEND Family Medicine
DX: Z12.31 Encounter for screening mammogram for malignant neoplasm of breast (principal); R92.323 Mammographic fibroglandular density, bilateral breasts

== ENCOUNTER → 2023-08-18 | Outpatient (REF) | payer MEDICARE ==
[~2023-08-18] MED LIST changes: -ROSU10TA6 PO; +ROSU10TA61 PO; +ROSU5TAB40 PO; -ROSU5TAB5 PO
== END ==
LOC: M LAB REF 12:40
PROVIDERS: ATTEND Family Medicine
DX: M10.9 Gout, unspecified (principal)

== ENCOUNTER → 2023-11-08 | Outpatient (CLI) | payer MEDICARE, BC ==
[2023-11-08 10:18] LABS: BASO % 0.3 % (0.0-1.0); EOS # 0.1 10^3/uL (0.0-0.5); EOS % 1.8 % (0.0-3.0); HEMATOCRIT 38.6 % (36.0-47.0); HEMOGLOBIN 12.5 g/dl (12.0-15.5); LYMPH # 2.1 10^3/uL (1.5-5.0); LYMPH % 34.2 % (24.0-44.0); MEAN CORPUSCULAR HEMOGLOBIN 31.3 pg (27.0-33.0); MEAN CORPUSCULAR HGB CONC 32.4 g/dl (32.0-36.5); MEAN CORPUSCULAR VOLUME 96.5 fl (80.0-96.0); MONO # 0.6 10^3/uL (0.0-0.8); MONO % 9.9 % (2.0-8.0); NEUTROPHILS # 3.3 10^3/uL (1.5-8.5); PLATELET COUNT, AUTOMATED 331 10^3/uL (150-450); WHITE BLOOD COUNT 6.3 10^3/uL (4.0-10.0)
== END ==
LOC: M PLALAB 08:43
PROVIDERS: ATTEND Nurse Practitioner
DX: D45 Polycythemia vera (principal)

== ENCOUNTER → 2023-12-13 | Outpatient (CLI) | payer MEDICARE, BC ==
[2023-12-13 15:23] LABS: BASO % 0.2 % (0.0-1.0); EOS # 0.1 10^3/uL (0.0-0.5); EOS % 0.9 % (0.0-3.0); HEMATOCRIT 41.5 % (36.0-47.0); HEMOGLOBIN 13.6 g/dl (12.0-15.5); LYMPH # 3.1 10^3/uL (1.5-5.0); LYMPH % 30.5 % (24.0-44.0); MEAN CORPUSCULAR HEMOGLOBIN 32.5 pg (27.0-33.0); MEAN CORPUSCULAR HGB CONC 32.8 g/dl (32.0-36.5); MEAN CORPUSCULAR VOLUME 99.3 fl (80.0-96.0); MONO % 9.4 % (2.0-8.0); NEUTROPHILS % 58.2 % (36.0-66.0); PLATELET COUNT, AUTOMATED 377 10^3/uL (150-450); RED BLOOD COUNT 4.18 10^6/uL (4.00-5.40); WHITE BLOOD COUNT 10.2 10^3/uL (4.0-10.0)
== END ==
LOC: M PLALAB 11:25
PROVIDERS: ATTEND Internal Medicine Hematology & Oncology
DX: D45 Polycythemia vera (principal)

== ENCOUNTER 2024-02-02 09:32 | Observation (INO) | payer MEDICARE, BC ==
[~2024-02-02] VITALS: Ht 165.1 cm; Wt 94.3 kg
[~2024-02-02 09:32] MED LIST changes: -DULO1CAP5; +DULO1CAP5 PO; -ERYT5OIN25; +ERYT5OIN25 OU; -ROSU5TAB40 PO; +ROSU5TAB49 PO; +[UNRECOGNIZED DRUG - CODE] INJ
[2024-02-02] MEDS ORDERED: ISOVUE-370 76% 100ML VIAL As Ordered ONE (10:10)
[2024-02-02] MEDS ORDERED: TIMOXEOPD OU ×2 (10:47→10:57)
[2024-02-02] MEDS ORDERED: IPRA6SP (10:57)
[2024-02-02] MEDS ORDERED: ADVA1AER9 INH (10:57)
[2024-02-02] MEDS ORDERED: MAGN1TAB26 PO (10:57)
[2024-02-02] MEDS ORDERED: REST0.05 OU (10:57)
[2024-02-02] MEDS ORDERED: VIBE75TA PO (10:57)
[2024-02-02] MEDS ORDERED: TOPI25TA10 PO (10:59)
[2024-02-02] MEDS ORDERED: TOPI100T9 PO (11:01)
[2024-02-02] MEDS ORDERED: HOME MED LIST COMPLETE! XX SCH (11:05)
[2024-02-02 11:07] LABS: BASO % 0.2 % (0.0-1.0); EOS # 0.1 10^3/uL (0.0-0.5); EOS % 1.8 % (0.0-3.0); HEMATOCRIT 36.7 % (36.0-47.0); HEMOGLOBIN 12.1 g/dl (12.0-15.5); LYMPH # 1.5 10^3/uL (1.5-5.0); LYMPH % 34.3 % (24.0-44.0); MEAN CORPUSCULAR HEMOGLOBIN 31.9 pg (27.0-33.0); MEAN CORPUSCULAR VOLUME 96.8 fl (80.0-96.0); MONO # 0.5 10^3/uL (0.0-0.8); MONO % 11.2 % (2.0-8.0); NEUTROPHILS # 2.3 10^3/uL (1.5-8.5); NEUTROPHILS % 52.1 % (36.0-66.0); PLATELET COUNT, AUTOMATED 274 10^3/uL (150-450); RED BLOOD COUNT 3.79 10^6/uL (4.00-5.40); WHITE BLOOD COUNT 4.5 10^3/uL (4.0-10.0)
[2024-02-02 11:20] LABS: INR 1.24; PARTIAL THROMBOPLASTIN TIME 29.8 SECONDS (24.8-34.2); PROTHROMBIN TIME 15.9 SECONDS (12.5-14.5)
[2024-02-02] MEDS: ACETAMINOPHEN 500 MG TAB PO ONE (11:22)
[2024-02-02 11:29] LABS: BLOOD UREA NITROGEN 17 MG/DL (9-23); CALCIUM LEVEL 9.5 MG/DL (8.3-10.6); CARBON DIOXIDE LEVEL 26 MMOL/L (20-31); CHLORIDE LEVEL 109 MMOL/L (98-107); CREATININE FOR GFR 0.57 MG/DL (0.55-1.30); GLOMERULAR FILTRATION RATE > 60.0 (>39); GLUCOSE, FASTING 115 MG/DL (74-106); POTASSIUM SERUM 4.1 MMOL/L (3.5-5.1); SODIUM LEVEL 143 MMOL/L (136-145)
[2024-02-02] MEDS ORDERED: ASPIRIN 325 MG TAB PO ONE (12:50)
[2024-02-02] MEDS ORDERED: IPRATROPIUM 0.06% NASAL SPRAY 15 ML (ATROVENT) PRN (12:50)
[2024-02-02] MEDS ORDERED: DEXTROSE 50% 50ML SYRINGE IV PRN (13:00)
[2024-02-02] MEDS ORDERED: GLUCAGON INJ 1MG VIAL SC PRN (13:00)
[2024-02-02] MEDS ORDERED: hydrALAZINE 20MG/ML 1ML VIAL IV PRN (13:00)
[2024-02-02] MEDS ORDERED: GLUCOSE 4 GM CHEW PO PRN (13:00)
[2024-02-02 16:21] VITALS: BP 160/64; TEMP 97.9; O2SAT 99
[2024-02-02 16:23] LABS: HEMOGLOBIN A1c 6.6 % (4.0-6.0)
[2024-02-02] MEDS: ASPIRIN 81MG ENTERIC TABLET PO ONE (16:50)
[2024-02-02] MEDS: INSULIN LISPRO (NovoLOG) PER UNIT SC SCH ×2 (16:58→20:16)
[2024-02-02 19:57] VITALS: BP 164/72; TEMP 97.3; O2SAT 96
[2024-02-02] MEDS: ADVAIR HFA 115/21MCG INHALER INH SCH (20:29)
[2024-02-02] MEDS: ROSUVASTATIN 10 MG TAB (CRESTOR) PO SCH (20:53)
[2024-02-02] MEDS: EZETIMIBE 10MG TABLET (ZETIA) PO SCH (20:54)
[2024-02-02] MEDS: TOPIRAMATE (TopAMAX) 100 MG TAB PO SCH (20:54)
[2024-02-02] MEDS: LATANOPROST 0.005% OPHTH SOLN 2.5 ML OU SCH (20:54)
[2024-02-02] MEDS: APIXABAN 5 MG TAB (ELIQUIS) PO SCH (20:54)
[2024-02-02] MEDS: DORZOLAMIDE 2% OPHTH SOLN 10 ML BTL OU SCH (20:54)
[2024-02-03 00:07] VITALS: BP 160/70; TEMP 96.9; O2SAT 99
[2024-02-03 03:53] VITALS: BP 163/72; TEMP 98.2; O2SAT 98
[2024-02-03 05:56] LABS: HEMATOCRIT 35.5 % (36.0-47.0); HEMOGLOBIN 11.7 g/dl (12.0-15.5); MEAN CORPUSCULAR HEMOGLOBIN 32.2 pg (27.0-33.0); MEAN CORPUSCULAR VOLUME 97.8 fl (80.0-96.0); PLATELET COUNT, AUTOMATED 269 10^3/uL (150-450); RED BLOOD COUNT 3.63 10^6/uL (4.00-5.40); WHITE BLOOD COUNT 4.9 10^3/uL (4.0-10.0)
[2024-02-03 06:18] LABS: ALBUMIN 2.8 G/DL (3.2-5.2); ALKALINE PHOSPHATASE 60 U/L (35-104); ALT/SGPT 14 U/L (7.0-40); AST/SGOT 16 U/L (<34); BILIRUBIN,TOTAL 0.4 MG/DL (0.3-1.2); BLOOD UREA NITROGEN 15 MG/DL (9-23); CALCIUM LEVEL 9.4 MG/DL (8.3-10.6); CARBON DIOXIDE LEVEL 28 MMOL/L (20-31); CHLORIDE LEVEL 108 MMOL/L (98-107); CHOLESTEROL LEVEL 132 MG/DL (<200); CHOLESTEROL RISK RATIO 2.74 (<5); CREATININE FOR GFR 0.56 MG/DL (0.55-1.30); GLOMERULAR FILTRATION RATE > 60.0 (>39); GLUCOSE, FASTING 116 MG/DL (74-106); HDL CHOLESTEROL 48.1 MG/DL (>40); LDL CHOLESTEROL 64.5 MG/DL (<100); NON-HDL-C 83.9 MG/DL; SODIUM LEVEL 141 MMOL/L (136-145); TOTAL PROTEIN 6.4 G/DL (5.7-8.2); TRIGLYCERIDES LEVEL 97 MG/DL (<150)
[2024-02-03 08:15] VITALS: BP 164/71; TEMP 97.1; O2SAT 97
[2024-02-03] MEDS: ASPIRIN 81MG ENTERIC TABLET PO SCH (08:22)
[2024-02-03 08:23] VITALS: BP 164/71
[2024-02-03] MEDS: METOPROLOL SUCC (TopROL XL) 50MG **XL** TAB PO SCH (08:23)
[2024-02-03] MEDS: DULoxetine 30MG CAPSULE (CYMBALTA) PO SCH (08:23)
[2024-02-03] MEDS: allopurinoL 100 MG TAB PO SCH (08:23)
[2024-02-03] MEDS: SODIUM CHLORIDE NASAL 0.65% SPRAY BTL (OCEAN) SCH (08:26)
[2024-02-03] MEDS ORDERED: GEMTESA 75 MG PO SCH (09:00)
[2024-02-03 11:53] VITALS: BP 151/69
[2024-02-03] MEDS ORDERED: LISI40TA4 PO (12:02)
[2024-02-03] MEDS ORDERED: ASPI81TAEC PO (12:02)
[2024-02-03] MEDS ORDERED: SM N0.65 NARES (12:02)
[2024-02-03] MEDS ORDERED: AMOX875T2 PO (12:03)
[2024-02-03] MEDS ORDERED: ROSUVASTATIN 10 MG TAB (CRESTOR) PO SCH (21:00)
== END 2024-02-03 12:41 | disposition home or self-care (01) ==
LOC: M ED 09:32 → M ED INP 09:33 → M PCU 16:05
PROVIDERS: ADMIT Internal Medicine; ATTEND Internal Medicine
DX: R20.2 Paresthesia of skin (principal); D45 Polycythemia vera; J01.30 Acute sphenoidal sinusitis, unspecified; Z86.711 Personal history of pulmonary embolism; I25.10 Atherosclerotic heart disease of native coronary artery without angina pectoris; Z98.61 Coronary angioplasty status; I10 Essential (primary) hypertension; I48.0 Paroxysmal atrial fibrillation; E11.9 Type 2 diabetes mellitus without complications; J45.909 Unspecified asthma, uncomplicated; N32.81 Overactive bladder; M10.9 Gout, unspecified; G62.9 Polyneuropathy, unspecified; Z79.01 Long term (current) use of anticoagulants; E55.9 Vitamin D deficiency, unspecified
CPT/HCPCS: 36415; 70450; 70496; 70498; 70551; 71045; 80047; 80048; 80053; 80061; 83036; 85025; 85027; 85610; 85730; 86850; 86900; 86901; 93005; 93041; 93306; 94640; 94760; 97161; 99285; G0378; J1815; Q9967

== ENCOUNTER → 2024-05-24 | Outpatient (CLI) | payer MEDICARE, BC ==
[~2024-05-24] MED LIST changes: +ADVA1AER9 INH; +AMOX875T2 PO; +ASPI81TAEC PO; +IPRA6SP; +LISI40TA4 PO; +MAGN1TAB26 PO; +REST0.05 OU; +SM N0.65 NARES; +TIMOXEOPD OU; +TOPI100T9 PO; +TOPI25TA10 PO; +VIBE75TA PO
== END ==
LOC: M PLAIMG 07:52
PROVIDERS: ATTEND Physician Assistant
DX: J32.3 Chronic sphenoidal sinusitis (principal)

== ENCOUNTER → 2024-06-21 | Outpatient (CLI) | payer MEDICARE, BC ==
[~2024-06-21] MED LIST changes: +TOPI-256 PO; +TOPI-257 PO; -TOPI100T9 PO; -TOPI25TA10 PO
== END ==
LOC: M WHC 08:02
PROVIDERS: ATTEND Family Medicine
DX: Z12.31 Encounter for screening mammogram for malignant neoplasm of breast (principal); R92.313 Mammographic fatty tissue density, bilateral breasts

== ENCOUNTER → 2024-10-15 | Outpatient (CLI) | payer MEDICARE, BC ==
[~2024-10-15] MED LIST changes: +LISI40TA10 PO; -LISI40TA4 PO; +SENN-186 PO
== END ==
LOC: M RAD 08:40
DX: D45 Polycythemia vera (principal)

== ENCOUNTER → 2024-12-16 | Outpatient (REF) | payer MEDICARE, BC ==
[2024-12-16 15:28] LABS: BASO # 0.0 10^3/uL (0.0-0.2); BASO % 0.2 % (0.0-1.0); EOS # 0.1 10^3/uL (0.0-0.5); EOS % 2.1 % (0.0-3.0); LYMPH # 1.6 10^3/uL (1.5-5.0); LYMPH % 37.0 % (24.0-44.0); MONO # 0.5 10^3/uL (0.0-0.8); MONO % 12.1 % (2.0-8.0); NEUTROPHILS # 2.1 10^3/uL (1.5-8.5); NEUTROPHILS % 48.4 % (36.0-66.0); PLATELET COUNT, AUTOMATED 298 10^3/uL (150-450)
[2024-12-16 15:46] LABS: ALT/SGPT 26 U/L (7.0-40); AST/SGOT 26 U/L (<34); C REACTIVE PROTEIN QUANTITATIV < 0.50 MG/DL (<1.0); CALCIUM LEVEL 9.5 MG/DL (8.3-10.6); CARBON DIOXIDE LEVEL 29 MMOL/L (20-31); CHLORIDE LEVEL 107 MMOL/L (98-107); CREATININE FOR GFR 0.56 MG/DL (0.55-1.30); GLOMERULAR FILTRATION RATE > 90.0 (>39); POTASSIUM SERUM 4.5 MMOL/L (3.5-5.1); SODIUM LEVEL 145 MMOL/L (136-145)
[2024-12-16 15:50] LABS: TOTAL 25(OH) VITAMIN D 84.6 NG/ML (20.0-100.0)
[2024-12-17 11:48] LABS: ERYTHROCYTE SEDIMENTATION RATE 23 mm/hr (0-20)
== END ==
LOC: M SFHCRHEU 11:33
PROVIDERS: ATTEND Internal Medicine
DX: M15.4 Erosive (osteo)arthritis (principal); R76.89 Other specified abnormal immunological findings in serum; Z79.899 Other long term (current) drug therapy

== ENCOUNTER 2024-12-28 14:41 | Emergency (ER) | payer MEDICARE, BC ==
[~2024-12-28] VITALS: Ht 165.1 cm; Wt 100.1 kg
[~2024-12-28 14:41] MED LIST changes: -ROSU10TA61 PO; +ROSU10TA90 PO
[2024-12-28] MEDS: TETANUS/DIPHTH/ACEL. PERTUSSIS 0.5 ML SYR IM ONE (15:51)
[2024-12-28 15:52] LABS: BASO # 0.0 10^3/uL (0.0-0.2); BASO % 0.2 % (0.0-1.0); EOS # 0.1 10^3/uL (0.0-0.5); EOS % 2.2 % (0.0-3.0); LYMPH # 1.9 10^3/uL (1.5-5.0); LYMPH % 34.2 % (24.0-44.0); MONO # 0.5 10^3/uL (0.0-0.8); MONO % 8.9 % (2.0-8.0); NEUTROPHILS # 3.0 10^3/uL (1.5-8.5); NEUTROPHILS % 54.3 % (36.0-66.0); PLATELET COUNT, AUTOMATED 279 10^3/uL (150-450); PLATELET COUNT, AUTOMATED 297 10^3/uL (150-450)
[2024-12-28] MEDS ORDERED: ISOVUE-370 76% 100 ML VIAL As Ordered ONE (16:06)
[2024-12-28 16:14] LABS: INR 1.07
[2024-12-28 16:19] LABS: ETHYL ALCOHOL (ETHANOL) < 0.003 % (0.000-0.010)
[2024-12-28 16:21] LABS: ALT/SGPT 20 U/L (7.0-40); AST/SGOT 24 U/L (<34)
[2024-12-28] MEDS: MORPHINE 4 MG/ML 1 ML VIAL IV PRN (16:25)
[2024-12-28] MEDS: LIDOCAINE W/EPINEPHrine 1% 20 ML VIAL SC ONE (19:09)
[2024-12-28] MEDS: DERMABOND TOPICAL SKIN ADHESIVE TOP ONE (19:10)
[2024-12-28 19:43] VITALS: BP 159/68; TEMP 98.5; O2SAT 95
== END 2024-12-28 19:45 | disposition home or self-care (01) ==
LOC: M ED 14:41
DX: S01.81XA Laceration without foreign body of other part of head, initial encounter (principal); S80.11XA Contusion of right lower leg, initial encounter; W19.XXXA Unspecified fall, initial encounter; Y92.009 Unspecified place in unspecified non-institutional (private) residence as the place of occurrence of the external cause; Y93.9 Activity, unspecified; Y99.9 Unspecified external cause status; E11.9 Type 2 diabetes mellitus without complications; I25.2 Old myocardial infarction; I10 Essential (primary) hypertension; E78.5 Hyperlipidemia, unspecified; G47.33 Obstructive sleep apnea (adult) (pediatric); Z86.711 Personal history of pulmonary embolism; M25.78 Osteophyte, vertebrae
CPT/HCPCS: 12011; 70450; 71045; 71260; 72125; 73590; 74177; 80047; 80076; 82077; 82150; 83605; 83690; 85025; 85027; 85610; 85730; 86850; 86900; 86901; 90471; 90715; 93005; 93041; 94760; 96374; 99285; Q9967

== ENCOUNTER → 2025-01-16 | Outpatient (CLI) | payer MEDICARE, BC ==
[2025-01-16 13:56] LABS: BASO # 0.0 10^3/uL (0.0-0.2); BASO % 0.5 % (0.0-1.0); EOS # 0.2 10^3/uL (0.0-0.5); EOS % 2.9 % (0.0-3.0); LYMPH # 2.3 10^3/uL (1.5-5.0); LYMPH % 28.1 % (24.0-44.0); MONO # 0.7 10^3/uL (0.0-0.8); MONO % 8.7 % (2.0-8.0); NEUTROPHILS # 4.8 10^3/uL (1.5-8.5); NEUTROPHILS % 59.6 % (36.0-66.0); PLATELET COUNT, AUTOMATED 374 10^3/uL (150-450)
== END ==
LOC: M PLALAB 10:52
PROVIDERS: ATTEND Physician Assistant
DX: D47.1 Chronic myeloproliferative disease (principal)

== ENCOUNTER → 2025-02-10 | Outpatient (CLI) | payer MEDICARE, BC ==
[~2025-02-10] MED LIST changes: -BACTDSTA; +E-Z-GAS II EFFERVESCENT PACKET (SODIUM BICARB./CITRIC ACID/SIMETHICONE) As Ordered ONE; +E-Z-HD 98% w/w 340 GM SUSP BTL As Ordered ONE; +E-Z-PAQUE 96% w/w SUSP 176 GM BTL As Ordered ONE; +SULF-8
== END ==
LOC: M RAD 08:30
PROVIDERS: ATTEND Family Medicine
DX: R13.10 Dysphagia, unspecified (principal)